=== PATIENT | female | born 1960 | race Caucasian/White ===

== ENCOUNTER → 2018-01-07 09:07 | Outpatient (CLI) | payer OTHER, SELFPAY ==
[2018-01-07 10:15] LABS: Anion Gap 5 (5-15); BUN 18 mg/dL (7-18); BUN/Creat Ratio 20.4 RATIO (10-20); Calcium,Total 8.9 mg/dL (8.5-10.1); Chloride 105 mmol/L (98-107); Cholesterol 166 mg/dL (200); Creatinine, Serum 0.88 mg/dL (0.55-1.02); EST Glomerular Filtration Rate 70 mL/min (>60); Est Glom Filt Rate - Afr Amer 84 mL/min (>60); Glucose 83 mg/dL (74-106); High Density Lipoprotein 104 mg/dL; Potassium 4.1 mmol/L (3.5-5.1); Sodium Level 139 mmol/L (136-145); Triglycerides 53 mg/dL; Very Low Density Lipoprotein 11 mg/dL (5-40)
== END ==
PROVIDERS: Family Provider Family Medicine; PCP Family Medicine; Visit Provider Nurse Practitioner Adult Health
DX: Z13.220 Encounter for screening for lipoid disorders (principal); Z13.1 Encounter for screening for diabetes mellitus
CPT/HCPCS: 36415; 80048; 80061

== ENCOUNTER → 2019-01-19 08:08 | Outpatient (CLI) | payer OTHER, SELFPAY ==
[2019-01-19 10:38] LABS: Anion Gap 6 (5-15); BUN 15 mg/dL (7-18); BUN/Creat Ratio 17.5 RATIO (10-20); Calcium,Total 9.1 mg/dL (8.5-10.1); Chloride 105 mmol/L (98-107); Cholesterol 172 mg/dL (200); Creatinine, Serum 0.86 mg/dL (0.55-1.02); EST Glomerular Filtration Rate 72 mL/min (>60); Est Glom Filt Rate - Afr Amer 87 mL/min (>60); Glucose 85 mg/dL (74-106); High Density Lipoprotein 95 mg/dL; Potassium 4.3 mmol/L (3.5-5.1); Sodium Level 141 mmol/L (136-145); Triglycerides 42 mg/dL; Very Low Density Lipoprotein 8 mg/dL (5-40)
== END ==
PROVIDERS: Family Provider Family Medicine; PCP Family Medicine; Visit Provider Nurse Practitioner Adult Health
DX: Z13.220 Encounter for screening for lipoid disorders (principal); Z13.1 Encounter for screening for diabetes mellitus
CPT/HCPCS: 36415; 80048; 80061

== ENCOUNTER → 2020-01-25 09:44 | Outpatient (CLI) | payer OTHER, SELFPAY ==
[2020-01-25 13:32] LABS: Cholesterol 172 mg/dL (200); Glucose 84 mg/dL (74-106); High Density Lipoprotein 96 mg/dL; Triglycerides 61 mg/dL; Very Low Density Lipoprotein 12 mg/dL (5-40)
== END ==
PROVIDERS: PCP Family Medicine; Visit Provider Nurse Practitioner Adult Health
DX: Z13.220 Encounter for screening for lipoid disorders (principal)
CPT/HCPCS: 36415; 80061; 82947

== ENCOUNTER 2020-04-05 08:31 | Outpatient (RCR) | payer OTHER, SELFPAY | END 2020-04-11 23:59 | LOC: NS 08:31 | PROVIDERS: PCP Family Medicine; Visit Provider Family Medicine | DX: Z71.3 Dietary counseling and surveillance (principal) | CPT/HCPCS: 97802 ==

== ENCOUNTER 2020-04-26 09:52 | Outpatient (RCR) | payer OTHER, SELFPAY | END 2020-04-26 23:59 | disposition home or self-care (01) | LOC: NS 09:52 | PROVIDERS: PCP Family Medicine; Visit Provider Family Medicine | DX: Z71.3 Dietary counseling and surveillance (principal); E55.9 Vitamin D deficiency, unspecified | CPT/HCPCS: 97803 ==

== ENCOUNTER → 2021-02-11 08:55 | Outpatient (CLI) | payer OTHER, SELFPAY ==
[2021-02-11 10:12] LABS: Hematocrit 46.7 % (37-47); Hemoglobin 15.2 g/dL (12.0-15.0); Mean Corp Hgb Conc 32.5 g/dL (32-36); Mean Corpuscular Hgb 30.8 pg (27.0-32.0); Mean Corpuscular Volume 94.7 fL (81-99); Mean Platelet Vol. 9.4 fl (6.2-12.0); Platelet Count 272 K/mm3 (150-450); RBC Distribution Width CV 11.9 % (11.6-14.6); RBC Distribution Width SD 41.6 fl (35.1-43.9); Red Blood Count 4.93 M/mm3 (4.2-5.4)
[2021-02-11 10:43] LABS: Anion Gap 5 (5-15); BUN 9 mg/dL (7-18); BUN/Creat Ratio 11.1 RATIO (10-20); Calcium,Total 9.2 mg/dL (8.5-10.1); Chloride 103 mmol/L (98-107); Cholesterol 198 mg/dL (200); Creatinine, Serum 0.81 mg/dL (0.55-1.02); EST Glomerular Filtration Rate 76 mL/min (>60); Est Glom Filt Rate - Afr Amer 92 mL/min (>60); Glucose 90 mg/dL (74-106); High Density Lipoprotein 114 mg/dL; Potassium 3.9 mmol/L (3.5-5.1); Sodium Level 139 mmol/L (136-145); Triglycerides 63 mg/dL; Very Low Density Lipoprotein 13 mg/dL (5-40)
== END ==
PROVIDERS: PCP Family Medicine; Referring Provider Nurse Practitioner Family; Visit Provider Nurse Practitioner Family
DX: Z13.1 Encounter for screening for diabetes mellitus (principal); Z13.220 Encounter for screening for lipoid disorders
CPT/HCPCS: 36415; 80048; 80061; 85027

== ENCOUNTER → 2022-02-20 | Outpatient (CLI) | payer OTHER, SELFPAY ==
[2022-02-20 12:17] LABS: Anion Gap 6 (5-15); BUN 12 mg/dL (7-18); BUN/Creat Ratio 15.4 RATIO (10-20); Calcium,Total 9.2 mg/dL (8.5-10.1); Chloride 104 mmol/L (98-107); Cholesterol 191 mg/dL (200); Creatinine, Serum 0.78 mg/dL (0.55-1.02); EST Glomerular Filtration Rate 79 mL/min (>60); Est Glom Filt Rate - Afr Amer 96 mL/min (>60); Glucose 95 mg/dL (74-106); High Density Lipoprotein 105 mg/dL; Sodium Level 138 mmol/L (136-145); Triglycerides 69 mg/dL; Very Low Density Lipoprotein 14 mg/dL (5-40)
== END | disposition home or self-care (01) ==
LOC: MTLAB 09:33
PROVIDERS: PCP Family Medicine; Referring Provider Nurse Practitioner Family; Visit Provider Nurse Practitioner Family
DX: Z13.1 Encounter for screening for diabetes mellitus (principal); Z13.220 Encounter for screening for lipoid disorders
CPT/HCPCS: 36415; 80048; 80061

== ENCOUNTER → 2023-01-08 | Outpatient (CLI) | payer OTHER, SELFPAY ==
[2023-01-08 10:32] LABS: Hematocrit 44.1 % (37-47); Hemoglobin 14.4 g/dL (12.0-15.0); Mean Corp Hgb Conc 32.7 g/dL (32-36); Mean Corpuscular Hgb 31.1 pg (27.0-32.0); Mean Corpuscular Volume 95.2 fL (81-99); Mean Platelet Vol. 9.5 fl (6.2-12.0); Platelet Count 281 K/mm3 (150-450); RBC Distribution Width CV 11.9 % (11.6-14.6); RBC Distribution Width SD 41.1 fl (35.1-43.9); Red Blood Count 4.63 M/mm3 (4.2-5.4); White Blood Count 5.2 K/mm3 (4.4-11.0)
[2023-01-08 11:10] LABS: Anion Gap 5 (5-15); BUN 14 mg/dL (7-18); BUN/Creat Ratio 17.9 RATIO (10-20); Calcium,Total 9.1 mg/dL (8.5-10.1); Chloride 105 mmol/L (98-107); Cholesterol 180 mg/dL (200); Creatinine, Serum 0.78 mg/dL (0.55-1.02); EST Glomerular Filtration Rate 79 mL/min (>60); Est Glom Filt Rate - Afr Amer 95 mL/min (>60); Glucose 85 mg/dL (74-106); High Density Lipoprotein 108 mg/dL; Potassium 4.1 mmol/L (3.5-5.1); Sodium Level 139 mmol/L (136-145); Thyroid Stim Hormone (TSH) 1.49 uIU/mL (0.358-3.74); Triglycerides 36 mg/dL; Very Low Density Lipoprotein 7 mg/dL (5-40)
== END | disposition home or self-care (01) ==
LOC: MFPLAB 09:15
PROVIDERS: PCP Family Medicine; Visit Provider Nurse Practitioner Family
DX: Z13.1 Encounter for screening for diabetes mellitus (principal); R53.83 Other fatigue; Z13.220 Encounter for screening for lipoid disorders
CPT/HCPCS: 36415; 80048; 80061; 84443; 85027

== ENCOUNTER → 2023-04-21 | Outpatient (CLI) | payer OTHER, SELFPAY | END | disposition home or self-care (01) | LOC: LABSPEC 11:33 | PROVIDERS: PCP Family Medicine; Visit Provider Family Medicine | DX: R31.9 Hematuria, unspecified (principal) | CPT/HCPCS: 87086; 87088; 87186 ==

== ENCOUNTER → 2023-08-31 | Outpatient (CLI) | payer OTHER, SELFPAY ==
--- NOTE | 2023-08-31 11:50 | RAD_ITS ---
EXAM: XR RIGHT HAND COMPLETE, 3 OR MORE VIEWS CLINICAL INDICATION: pain. 3rd mcp TECHNIQUE: Frontal, lateral and oblique views of the right hand. COMPARISON: No relevant prior studies available. FINDINGS: BONES/JOINTS: Unremarkable. No acute fracture. No subluxation. Normal alignment. Preservation of the joint space. No sclerotic or destructive changes observed. SOFT TISSUES: Unremarkable. No soft tissue swelling or gas. No radiopaque foreign body. RAD/Hand Min 3 Views IMPRESSION: Negative right hand x-rays. Electronically Signed: Fly Contreras MD at 13:29 EST ,
--- OUTSIDE RECORDS SUMMARY | 2023-08-31 12:10 | XMS RPT_ITS | CCD ---
Author Name Unknown Address [address] [place] [address] Organization [facility] Care Team Providers Care Photonics Engineering Technologist Name Role Phone Ajith Chung MD Primary Care Provider LAITH MCCLOUD Referring Unavailable AJITH CHUNG Primary Care LAITH Hernandez Attending Unavailable AJITH CHUNG Primary Care Ajith Borges MD Primary Care Provider Allergies Allergy Classification Reported Allergen(s) Allergy Type Date of Onset Reaction(s) Facility (7 sources) Azithromycin; Translations: [AZITHROMYCIN] Drug Allergy 10-08-2006 Diarrhea [facility] (7 sources) Cephalexin; Translations: [CEPHALEXIN] Drug Allergy 10-08-2006 GI Upset [facility] Medications Completed/Discontinued Medications Medication Drug Class(es) Dates Sig (Normalized) Sig (Original) 84 hr estradiol 0.41732 mg/hr transdermal system (8 sources) Estrogen Start: 12-03-2022 End: 03-03-2023 apply 1 dose transdermal route every hour estradiol 0.025 mg/24 hr APPLY 1 PATCH EVERY THURSDAY AND THURSDAY DIRECTED 24 Patch 3 03/03/2023 Active Problems Problem Classification Problem Date Documented Date Episodic/Chronic Genitourinary symptoms and ill-defined conditions (6 sources) Urge incontinence of urine; Translations: [Urge incontinence] Onset: 12-16-2011 12-16-2011 Chronic Genitourinary symptoms and ill-defined conditions (3 sources) Blood in urine; Translations: [Hematuria, unspecified] 04-21-2023 Episodic Other hereditary and degenerative nervous system conditions (6 sources) System disorder of the nervous system; 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] 01-07-2006 Chronic Other screening for suspected conditions (not mental disorders or infectious disease) (4 sources) Patient encounter status; Translations: [Encounter for screening mammogram for malignant neoplasm of breast] Onset: 04-03-2023 Episodic Spondylosis; intervertebral disc disorders; other back problems (6 sources) Degeneration of cervical intervertebral disc; Translations: [Other cervical disc degeneration, unspecified cervical region] Onset: 12-07-2007 12-07-2007 Chronic Thyroid disorders (6 sources) Goiter; Translations: [Nontoxic goiter, unspecified] 04-18-2008 Chronic Results Test Name Value Interpretation Reference Range Facil ity Vital Signs Date Time Vital Sign Value Performing Clinician Faci lity 03-03-2023 08:46-0400 Body height 160 cm Laith Mccloud MD Work Phone: [facility] 03-03-2023 08:46-0400 Body weight 57.15 kg Laith Mccloud MD Work Phone: [facility] 03-03-2023 08:46-0400 Diastolic blood pressure 70 mm[Hg] Laith Mccloud MD Work Phone: [facility] 03-03-2023 08:46-0400 Systolic blood pressure 116 mm[Hg] Laith Mccloud MD Work Phone: [facility] 02-07-2022 09:00-0400 Body height 160 cm Laith Mccloud MD Work Phone: [facility] 02-07-2022 09:00-0400 Body weight 57.15 kg Laith Mccloud MD Work Phone: [facility] 02-07-2022 09:00-0400 Diastolic blood pressure 76 mm[Hg] Laith Mccloud MD Work Phone: [facility] 02-07-2022 09:00-0400 Systolic blood pressure 118 mm[Hg] Laith Mccloud MD Work Phone: [facility] Encounters Encounter Date Encounter Type Care Provider Facility Start: 04-21-2023 Telephone encounter Laith Mccloud MD Work Phone: OB/Gynecology Procedures Date Procedure Procedure Detail Performing Clinician Start: 04-03-2023 Screening digital br [facility] tomos[facility] bi Laith Mccloud MD Work Phone: Start: 02-06-2021 Mammography Laith ladd MD Work Phone: Start: 03-26-2015 Lipid 1996 panel - S lui or Plasma Laith Mccloud MD Work Phone: Start: 09-25-2011 Colonoscopy Laith ladd MD Work Phone: Plan of Treatment Date Care Activity Detail Author Start: 01-08-2033 Urine microalbumin profile DTaP,Tdap,Td Vaccine (3 - Td or Tdap) [facility] Start: 04-03-2024 Mammography Mammogram Screening [facility] Start: 03-13-2023 Covid-19 Vaccine () Covid-19 Vaccine () [facility] Start: 03-13-2023 Influenza vaccination [facility] Start: 01-18-2023 Urine microalbumin profile [facility] Start: 07-13-2022 DEPRESSION ASSESSMENT DEPRESSION ASSESSMENT [facility] Start: 03-20-2022 COVID-19 VACCINE (5 - Moderna series) COVID-19 VACCINE (5 - Moderna series) [facility] Start: 03-13-2022 Influenza vaccination [facility] Start: 02-06-2022 Mammography MAMMOGRAM [facility] Start: 09-24-2021 Colonoscopy COLONOSCOPY [facility] Start: 09-24-2021 COLORECTAL CANCER SCREENING COLORECTAL CANCER SCREENING [facility] Start: 03-19-2021 COVID-19 VACCINE (3 - Booster for Moderna series) COVID-19 VACCINE (3 - Booster for Moderna series) [facility] Start: 03-26-2020 Lipid 1996 panel - Serum or Plasma Lipid Screening [facility] Start: 03-26-2020 LIPID SCREEN LIPID SCREEN [facility] Start: 2019 RSV Vaccine (1 - 1-dose 60+ series) RSV Vaccine (1 - 1-dose 60+ series) [facility] Start: 03-26-2018 DIABETES SCREEN DIABETES SCREEN [facility] Start: 03-26-2018 Diabetes Screening Diabetes Screening [facility] Start: 01-31-2004 COLOGUARD (FIT-DNA) COLOGUARD (FIT-DNA) [facility] Start: 01-31-[address] COLONOGRAPHY [facility] Start: 01-31-2004 FECAL OCCULT BLOOD FECAL OCCULT BLOOD [facility] Start: 01-31-2004 SIGMOIDOSCOPY SIGMOIDOSCOPY [facility] Start: 1977 HEPATITIS C SCREENING HEPATITIS C SCREENING [facility] Start: 1977 HIV SCREENING HIV SCREENING [facility] Start: 1971 Adult depression screening assessment DEPRESSION SCREENING [facility] End: 03-09-2023 SEBAS SCREENING W [facility]URICE SEBAS SCREENING W [facility] Radiology Routine Encounter for gynecological examination (general) (routine) without abnormal findings Encounter for screening mammogram for breast cancer 1 Occurrences starting 02/07/2022 until 03/09/2023 [facility] Work Phone: Immunizations Immunization Date Immunization Notes Care Provider Fa cility 05-15-2019 zoster vaccine recombinant Laith Mccloud MD Work Phone: [facility] Work Phone: 01-23-2019 zoster vaccine recombinant Laith Mccloud MD Work Phone: [facility] Work Phone: 07-15-2016 influenza virus vaccine, unspecified formulation Laith Mccloud MD Work Phone: [facility] 04-27-2016 zoster vaccine, live Laith Mccloud MD Work Phone: [facility] Work Phone: 01-18-2013 tetanus toxoid, redu cheng diphtheria toxoid, and acellular pertussis vaccine, adsorbed Laith Mccloud MD Work Phone: [facility] Work Phone: Payers Date Payer Category Payer Unknown [facility] PPO [employer] [id number] 2015-Present [phone] [address] [place] [address] PPO [id number] 2015 Unknown [facility] PPO [employer] [id number] 2015-Present [phone] [address] [place] [address] PPO [id number] 2015 Unknown [id number] Social History Date Type Detail Facility Start: 12-28-2012 End: 03-03-2023 Tobacco smoking status NHIS Never smoked tobacco [facility] Start: 02-06-2021 End: 03-03-2023 Alcohol intake Current drinker of alcohol (finding) [facility] Start: 07-15-2016 History SDOH Alcohol Comment occasional [facility] Start: 1960 Sex Assigned At Not on file C [facility] Start: 01-28-2022 End: 02-07-2022 Exposure to SARS-CoV-2 (event) Not sure [facility] Start: 12-28-2012 End: 03-03-2023 Tobacco use and exposure Smokeless tobacco non-user [facility] Start: 03-03-2023 End: 04-03-2023 History of Social function [facility] Start: 03-03-2023 End: 04-03-2023 Tobacco use panel [facility] National Score (1-10 0), lower number is lower risk 66 [facility] Clinical Notes 10-14-2012 to 04-21-2023 Addendum Note - Emma Ferrara RN - 04/21/2023 9:58 AM EDTTelephone Encounter - Emma Ferrara RN - 04/21/2023 9:57 AM EDTTelephone Encounter - Carla Garcia RN - 04/21/2023 8:04 AM EDT Note Date & Type Note Facility 04-21-2023 Miscellaneous Notes Addended by: EMMA FERRARA RN on: 04/21/2023 09:58 AM Modules accepted: Orders Patient called back. Declines wanting to leave a urine sample at the lab since she is not able to see RR today. Plans to go to her other doctor. Emma Ferrara RN Patient calling c/o UTI symptoms. Having dysuria, urinary frequency, hematuria. She does not want to go to urgent care unless RR feels she needs to. Order pending if appropriate. Patient is extremely uncomfortable though. Last annual with RR 03/03/23. Please advise. Carla Garcia RN documented in this encounter [facility] 04-03-2023 Note HNO ID: [id number] Author: Alexandro Vargas Mammo Tech Service: ? Author Type: Technologist Type: Progress Notes Filed: 04/03/2023 7:19 AM Note Text: Radiology Service Progress Note PATIENT NAME: Navya Zambrano DATE OF SERVICE: April 03, 2023 TIME: 6:58 AM PATIENT IDENTITY VERIFICATION COMPLETED USING TWO (2) IDENTIFIERS: Name and Date of confirmed by patient verbally. FALL SCREENING: Has the patient had 2 falls in the last year or 1 fall with injury or currently using an Ambulatory Assistive Device (Walker, Cane, Wheelchair, Crutches, etc.)? No PATIENT GENDER DATA: Female. status: : No status: NO. PATIENT RELEVANT IMPLANT DATA REVIEWED: Not Applicable RADIOLOGY DEPARTMENT: Mammography PERIPHERAL IV DATA: Not applicable SIGNED BY: Selin Neal April 03, 2023 6:58 AM [facility] 04-03-2023 History of Presen t illness Narrative Radiology Service Progress Note PATIENT NAME: Navya Zambrano DATE OF SERVICE: April 03, 2023 TIME: 6:58 AM PATIENT IDENTITY VERIFICATION COMPLETED USING TWO (2) IDENTIFIERS: Name and Date of confirmed by patient verbally. FALL SCREENING: Has the patient had 2 falls in the last year or 1 fall with injury or currently using an Ambulatory Assistive Device (Walker, Cane, Wheelchair, Crutches, etc.)? No PATIENT GENDER DATA: Female. status: : No status: NO. PATIENT RELEVANT IMPLANT DATA REVIEWED: Not Applicable RADIOLOGY DEPARTMENT: Mammography PERIPHERAL IV DATA: Not applicable SIGNED BY: Selin Neal April 03, 2023 6:58 AM documented in this encounter [facility] 03-03-2023 Note HNO ID: [id number] Author: Laith Mccloud MD Service: ? Author Type: Physician Type: Progress Notes Filed: 03/03/2023 9:02 AM Note Text: Navya is a 63 year old who presents for an annual gynecologic exam without complaints. Other than fatigue a/p hyst many years ago Postmenopausal: yes HRT use: yes, doing well w/ it. 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 No bloating, early satiety, indigestion, or increased flatulence. Bladder: No dysuria, gross hematuria, urinary frequency, urinary urgency, or incontinence Breast: No breast lumps, nipple d/c, overlying skin changes, redness or skin retraction Allergies and current medication updated:Yes EXAM: BP 116/70 Ht 5' 3 (1.60m) Wt 126 lb (57.2kg) BMI 22.33 kg/(m2). GENERAL: pleasant, female in no apparent distress HEENT: Normocephalic, atraumatic, mucus membranes moist, and no lesions NECK: Supple, full range of motion, no adenopathy, and thyroid normal DERMATOLOGY: Normal, without lesions, non-icteric, and non-hirsute BREAST: soft, non-tender, symmetric, no dominant mass, normal nipple-areolar complex, no lymphadenopathy, and no nipple discharge CHEST: Normal inspiratory effort ABDOMEN: soft, non-tender, and no masses PELVIC: external genitalia normal, normal Bartholin's glands, urethra, [place]'s glands, no vulvar lesions, good vaginal support, physiologic discharge present, normal appearing perineal body and perianal region, cervix surgically absent BIMANUAL: no adnexal masses, non-tender, and uterus surgically absent RECTOVAGINAL: deferred. NEURO: alert and oriented x3,exam grossly non-focal EXTREMITIES: normal ASSESSMENT/PLAN: 1) Health maintenance: Pap/HPV screening no longer needed Mammogram ordered Colon cancer screening: up to date with screening 2) Follow up one year or sooner as needed Laith Mccloud MD [facility] 03-03-2023 History of Presen t illness Narrative Navya is a 63 year old who presents for an annual gynecologic exam without complaints. Other than fatigue a/p hyst many years ago Postmenopausal: yes HRT use: yes, doing well w/ it. 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 No bloating, early satiety, indigestion, or increased flatulence. Bladder: No dysuria, gross hematuria, urinary frequency, urinary urgency, or incontinence Breast: No breast lumps, nipple d/c, overlying skin changes, redness or skin retraction Allergies and current medication updated:Yes EXAM: BP 116/70 Ht 5' 3 (1.60m) Wt 126 lb (57.2kg) BMI 22.33 kg/(m^2). GENERAL: pleasant, female in no apparent distress HEENT: Normocephalic, atraumatic, mucus membranes moist, and no lesions NECK: Supple, full range of motion, no adenopathy, and thyroid normal DERMATOLOGY: Normal, without lesions, non-icteric, and non-hirsute BREAST: soft, non-tender, symmetric, no dominant mass, normal nipple-areolar complex, no lymphadenopathy, and no nipple discharge CHEST: Normal inspiratory effort ABDOMEN: soft, non-tender, and no masses PELVIC: external genitalia normal, normal Bartholin's glands, urethra, [place]'s glands, no vulvar lesions, good vaginal support, physiologic discharge present, normal appearing perineal body and perianal region, cervix surgically absent BIMANUAL: no adnexal masses, non-tender, and uterus surgically absent RECTOVAGINAL: deferred. NEURO: alert and oriented x3,exam grossly non-focal EXTREMITIES: normal ASSESSMENT/PLAN: 1) Health maintenance: Pap/HPV screening no longer needed Mammogram ordered Colon cancer screening: up to date with screening 2) Follow up one year or sooner as needed Laith Mccloud MD documented in this encounter [facility] 02-07-2022 History of Presen t illness Narrative Navya is a 62 year old who presents for an annual gynecologic exam without complaints. Postmenopausal: yes HRT use: No. 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 No bloating, early satiety, indigestion, or increased flatulence. Bladder: No dysuria, gross hematuria, urinary frequency, urinary urgency, or incontinence Breast: No breast lumps, nipple d/c, overlying skin changes, redness or skin retraction Allergies and current medication updated:Yes EXAM: BP 118/76 Ht 5' 3 (1.60m) Wt 126 lb (57.2kg) BMI 22.33 kg/(m^2). GENERAL: pleasant, female in no apparent distress HEENT: Normocephalic, atraumatic, mucus membranes moist and no lesions NECK: Supple, full range of motion, no adenopathy and thyroid normal DERMATOLOGY: Normal, without lesions, non-icteric and non-hirsute BREAST: soft, non-tender, symmetric, no dominant mass, normal nipple-areolar complex, no lymphadenopathy and no nipple discharge CHEST: Normal inspiratory effort ABDOMEN: soft, non-tender and no masses PELVIC: external genitalia normal, normal Bartholin's glands, urethra, [place]'s glands, no vulvar lesions, good vaginal support, physiologic discharge present, normal appearing perineal body and perianal region, cervix surgically absent BIMANUAL: uterus normal size, shape and consistency, no adnexal masses and non-tender RECTOVAGINAL: deferred. NEURO: alert and oriented x3,exam grossly non-focal EXTREMITIES: normal ASSESSMENT/PLAN: 1) Health maintenance: Pap/HPV screening no longer needed Mammogram ordered Colon cancer screening: up to date with screening 2) Follow up one year or sooner as needed Laith Mccloud MD documented in this encounter [facility] 12-31-2021 Miscellaneous Notes See pharmacy generated refill request. Pt has upcoming yearly scheduled. Eva Howell LPN documented in this encounter [facility] documented as of this encounter (statuses as of 12/31/2021) [facility] History of Past illness Narrative* Problem Noted Date Resolved Date Symptomatic menopausal or female climacteric sta mesfin 10/14/2012 07/15/2016 Routine General Medical Exam ination at a Health Care Facility 04/18/2008 09/27/2014 Overview: Vitamin D 52 in 04-19: on supplements for FH of osteoporosis Father had CABG in his 60s (former smoker) Pt e-mail about considering a stress test in 08-21 after seeing TIRE DESIGN ENGINEER for eval of menopause ED 11-18 for injury to R 3rd digit: no fracture [facility] ([place] in 11-18: PIP flexion-DIP extension splinting Sleep disturbance, unspecified 04/14/2008 0 07/15/2016 Overview: Reviewed jaw line and symptoms in 04-19: pt willing to schedule Sleep study 04-23-08: effic 96%, REM latency 88 min, AHI 0.3, 1.7 in REM Overweight(278.02) 04/14/2008 12/16/2011 Dysuria 01/11/2008 07/15/2016 Pain in thoracic spine 12/07/2007 7 Overview: Changed work station in 12-18 with about 60% improvement documented as of this encounter (statuses as of 02/07/2022) [facility] History of Past illness Narrative* Problem Noted Date Resolved Date Symptomatic menopausal or female climacteric sta mesfin 10/14/2012 07/15/2016 Routine General Medical Exam ination at a Health Care Facility 04/18/2008 09/27/2014 Overview: Vitamin D 52 in 04-19: on supplements for FH of osteoporosis Father had CABG in his 60s (former smoker) Pt e-mail about considering a stress test in 08-21 after seeing TIRE DESIGN ENGINEER for eval of menopause ED 11-18 for injury to R 3rd digit: no fracture [facility] ([place] in 11-18: PIP flexion-DIP extension splinting Sleep disturbance, unspecified 04/14/2008 0 07/15/2016 Overview: Reviewed jaw line and symptoms in 04-19: pt willing to schedule Sleep study 04-23-08: effic 96%, REM latency 88 min, AHI 0.3, 1.7 in REM Overweight(278.02) 04/14/2008 12/16/2011 Dysuria 01/11/2008 07/15/2016 Pain in thoracic spine 12/07/2007 7 Overview: Changed work station in 12-18 with about 60% improvement documented as of this encounter (statuses as of 03/10/2022) [facility] History of Past illness Narrative* Problem Noted Date Diagnosed Date Resolved Date Symptomatic menopausal or fe male climacteric states 10/14/2012 07/15/2016 Routine General Medical Exam ination at a Health Care Facility 04/18/2008 09/27/2014 Overview: Vitamin D 52 in 04-19: on supplements for FH of osteoporosis Father had CABG in his 60s (former smoker) Pt e-mail about considering a stress test in 08-21 after seeing TIRE DESIGN ENGINEER for eval of menopause ED 11-18 for injury to R 3rd digit: no fracture [facility] ([facility]) in 11-18: PIP flexion-DIP extension splinting Sleep disturbance, unspecified 04/14/2008 07/15/2016 Overview: Reviewed jaw line and symptoms in 04-19: pt willing to schedule Sleep study 04-23-08: effic 96%, REM latency 88 min, AHI 0.3, 1.7 in REM Overweight(278.02) 04/14/2008 2 Dysuria 01/11/2008 07/15/2016 Pain in thoracic spine 12/07/200707/15 Overview: Changed work station in 12-18 with about 60% improvement documented as of this encounter (statuses as of 03/03/2023) [facility] History of Past illness Narrative* Problem Noted Date Diagnosed Date Resolved Date Symptomatic menopausal or fe male climacteric states 10/14/2012 07/15/2016 Routine General Medical Exam ination at a Health Care Facility 04/18/2008 09/27/2014 Overview: Vitamin D 52 in 04-19: on supplements for FH of osteoporosis Father had CABG in his 60s (former smoker) Pt e-mail about considering a stress test in 08-21 after seeing TIRE DESIGN ENGINEER for eval of menopause ED 11-18 for injury to R 3rd digit: no fracture [facility] ([place] in 11-18: PIP flexion-DIP extension splinting Sleep disturbance, unspecified 04/14/2008 07/15/2016 Overview: Reviewed jaw line and symptoms in 04-19: pt willing to schedule Sleep study 04-23-08: effic 96%, REM latency 88 min, AHI 0.3, 1.7 in REM Overweight(278.02) 04/14/2008 2 Dysuria 01/11/2008 07/15/2016 Pain in thoracic spine 12/07/200707/15 Overview: Changed work station in 12-18 with about 60% improvement documented as of this encounter (statuses as of 04/21/2023) [facility]04[facility] History of Past illness Narrative* Problem Noted Date Diagnosed Date Resolved Date Symptomatic menopausal or fe male climacteric states 10/14/2012 07/15/2016 Routine General Medical Exam ination at a Health Care Facility 04/18/2008 09/27/2014 Overview: Vitamin D 52 in 04-19: on supplements for FH of osteoporosis Father had CABG in his 60s (former smoker) Pt e-mail about considering a stress test in 08-21 after seeing TIRE DESIGN ENGINEER for eval of menopause ED 11-18 for injury to R 3rd digit: no fracture [facility] in 11-18: PIP flexion-DIP extension splinting Sleep disturbance, unspecified 04/14/2008 07/15/2016 Overview: Reviewed jaw line and symptoms in 04-19: pt willing to schedule Sleep study 04-23-08: effic 96%, REM latency 88 min, AHI 0.3, 1.7 in REM Overweight(278.02) 04/14/2008 2 Dysuria 01/11/2008 07/15/2016 Pain in thoracic spine 12/07/200707/15 Overview: Changed work station in 12-18 with about 60% improvement documented as of this encounter (statuses as of 05/17/2023) [facility] Diagnosis Encounter for gynecological examination (general) (routine) without abnormal findings Encounter for screening mammogram for breast cancer documented in this encounter [facility] note* Diagnosis Encounter for gynecological examination (general) (routine) without abnormal findings- Primary Encounter for screening mammogram for breast cancer documented in this encounter [facility] note* Diagnosis Hematuria, unspecified type- Primary Urinary frequency Dysuria documented in this encounter [facility] note* Diagnosis Encounter for gynecological examination (general) (routine) without abnormal findings Encounter for screening mammogram for breast cancer [facility] Diagnostic Procedure Only (Routine) - Pending Review Specialty Diagnoses / Procedures Referred By Maria Fernanda brown Referred To Contact [facility] Diagnoses Encounter for gynecological examination (general) (routine) without abnormal findings Encounter for screening mammogram for breast cancer Procedures SEBAS SCREENING W MAURICE SCREENING DIGITAL BREAST TOMOSYNTHESIS BI SCREENING MAMMOGRAPHY BI 2-VIEW BREAST INC CAD Laith Mccolud MD [address] [place] [address] [facility] [address] [place] [phone] Referral ID Status Reason Start Date Expiration Date Visits Requested Visits Authorized [id number] Pending Review Auto-Generat ed Referral 02/07/2022 03/09/2023 1 1 [facility] (n[facility]ative)* Diagnostic Procedure Only (Routine) - Pending Review Specialty Diagnoses / Procedures Referred By Maria Fernanda brown Referred To Contact [facility] Diagnoses Encounter for gynecological examination (general) (routine) without abnormal findings Encounter for screening mammogram for breast cancer Procedures SEBAS SCREENING W MAURICE SCREENING DIGITAL BREAST TOMOSYNTHESIS BI SCREENING MAMMOGRAPHY BI 2-VIEW BREAST INC Laith Sneed MD [address] [place] [address] [facility] [address] [place] [address] Referral ID Status Reason Start Date Expiration Date Visits Requested Visits Authorized [id number] Pending Review Auto-Generat ed Referral 03/03/2023 04/01/2024 1 1 T [facility] for referral (narrative)* Diagnostic Procedure Only (Routine) - Closed Specialty Diagnoses / Procedures Referred By Maria Fernanda t Referred To Contact [facility] Diagnoses Encounter for gynecological examination (general) (routine) without abnormal findings Encounter for screening mammogram for breast cancer Procedures SEBAS SCREENING W MAURICE SCREENING DIGITAL BREAST TOMOSYNTHESIS BI SCREENING MAMMOGRAPHY BI 2-VIEW BREAST INC Laith Sneed MD [address] [place] [address] [facility] [address] [place] [address] Referral ID Status Reason Start Date Expiration Date V isits Requested Visits Authorized [id number] Closed Auto-Generate d Referral 03/03/2023 04/01/2024 1 1 [facility] for visit Narrative* Diagnostic Procedure Only (Routine) - Closed Specialty Diagnoses / Procedures Referred By Contkuldip brown Referred To Contact [facility] Diagnoses Encounter for gynecological examination (general) (routine) without abnormal findings Encounter for screening mammogram for breast cancer Procedures SEBAS SCREENING W MAURICE SCREENING DIGITAL BREAST TOMOSYNTHESIS BI SCREENING MAMMOGRAPHY BI 2-VIEW BREAST INC Laith Sneed MD [address] [place] [address] [facility] [address] [place] [address] Referral ID Status Reason Start Date Expiration Date V isits Requested Visits Authorized [id number] Closed Auto-Generate d Referral 03/03/2023 04/01/2024 1 1 [facility] Summary Purpose Family History No Family History Records Found Advance Directives No Advanced Directives Records Found Additional Source Comments Source Comments (unrecognize d section and content) In the event this informatio n is protected by the Federal Confidentiality of Alcohol and Drug Abuse Patient Records regulations: The Federal rules restrict any use of the information to criminally investigate or prosecute any alcohol or drug abuse patient.[facility] the event this information is protected by the Federal Confidentiality of Alcohol and Drug Abuse Patient Records regulations: The Federal rules restrict any use of the information to criminally investigate or prosecute any alcohol or drug abuse patient.[facility] the event this information is protected by the Federal Confidentiality of Alcohol and Drug Abuse Patient Records regulations: The Federal rules restrict any use of the information to criminally investigate or prosecute any alcohol or drug abuse patient.[facility] Center[facility] the event this information is protected by the Federal Confidentiality of Alcohol and Drug Abuse Patient Records regulations: The Federal rules restrict any use of the information to criminally investigate or prosecute any alcohol or drug abuse patient.[facility] Center[facility] the event this information is protected by the Federal Confidentiality of Alcohol and Drug Abuse Patient Records regulations: The Federal rules restrict any use of the information to criminally investigate or prosecute any alcohol or drug abuse patient.[facility] Center[facility] the event this information is protected by the Federal Confidentiality of Alcohol and Drug Abuse Patient Records regulations: The Federal rules restrict any use of the information to criminally investigate or prosecute any alcohol or drug abuse patient.[facility] Reason for Visit (unrecogniz ed section and content) Reason Comments Yearly Exam Reason Comments UTI Care Teams (unrecognized sec tion and content) Photonics Engineering Technologist Relationship Specialty Start Date End Date Ajith Chung MD [address] [place], [place] [id number] PCP - General Family Practice 09/27/14 Photonics Engineering Technologist Relationship Specialty Start Date End Date Ajith Chung MD [address] [facility] [address] [address] [place], [place] [id number] PCP - General Family Practice 09/27/14 Photonics Engineering Technologist Relationship Specialty Start Date End Date Ajith Chung MD [address] [place], [place] [phone] PCP - General Family Medicine 09/27/14 Photonics Engineering Technologist Relationship Specialty Start Date End Date Ajith Chung MD [address] [place] [id number] PCP - General Family Medicine 09/27/14 Photonics Engineering Technologist Relationship Specialty Start Date End Date Ajith Chung MD [address] [place], [place] [phone] PCP - General Family Medicine 09/27/14 INFORMATION SOURCE (unrecogn ized section and content) FOR RECORDS PERTAINING TO PATIENTS WHO ARE OR HAVE BEEN ENROLLED IN A CHEMICAL DEPENDENCY/SUBSTANCEABUSE PROGRAM, SOME INFORMATION MAY BE OMITTED. This clinical summary was aggregated from multiple sources. Caution should be exercised in using it in the provision of clinical care. This summary normalizes information from multiple sources, and as a consequence, information in this document may materially change the coding, format and clinical context of patient data. In addition, data may be omitted in some cases. CLINICAL DECISIONS SHOULD BE BASED ON THE PRIMARY CLINICAL RECORDS. [employer] provides no warranty or guarantee of the accuracy or completeness of information in this document.
== END | disposition home or self-care (01) ==
PROVIDERS: PCP Family Medicine; Referring Provider Family Medicine; Visit Provider Family Medicine
DX: M79.641 Pain in right hand (principal)
CPT/HCPCS: 73130

== ENCOUNTER → 2024-01-26 | Outpatient (CLI) | payer OTHER, SELFPAY ==
[2024-01-26 13:31] LABS: Anion Gap 7 (5-15); BUN 14 mg/dL (7-18); BUN/Creat Ratio 19.5 RATIO (10-20); Calcium,Total 9.2 mg/dL (8.5-10.1); Chloride 106 mmol/L (98-107); Cholesterol 171 mg/dL (200); Creatinine, Serum 0.72 mg/dL (0.55-1.02); EST Glomerular Filtration Rate 87 mL/min (>60); Est Glom Filt Rate - Afr Amer 105 mL/min (>60); Glucose 91 mg/dL (74-106); High Density Lipoprotein 98 mg/dL; Potassium 4.6 mmol/L (3.5-5.1); Sodium Level 136 mmol/L (136-145); Triglycerides 61 mg/dL; Very Low Density Lipoprotein 12 mg/dL (5-40)
== END | disposition home or self-care (01) ==
LOC: MFPLAB 11:06
PROVIDERS: PCP Family Medicine; Visit Provider Nurse Practitioner Family
DX: Z13.220 Encounter for screening for lipoid disorders (principal); Z13.1 Encounter for screening for diabetes mellitus
CPT/HCPCS: 36415; 80048; 80061

== ENCOUNTER → 2024-04-23 | Outpatient (CLI) | payer OTHER, SELFPAY ==
[2024-04-23 14:30] LABS: Bacteria 0 SEEN /hpf (None Seen); Mucous, Urine 0 SEEN /hpf (<or=2+); Squamous Epithelial Cells - UA 0 SEEN /hpf (5-10)
[2024-04-23 14:42] LABS: Color, Urine Red (Yellow); Glucose, Dipstick Normal (Normal); Ketone-Dipstick 5 mg/dl (Negative); Leukocyte Esterase-Dipstick Negative /ul (Negative); Nitrite-Dipstick Negative (Negative); Occult Blood-Urine 150 /ul (Negative); Protein-Dipstick 500 mg/dl (Negative); Urine Bilirubin Dipstick Negative (Negative); Urine Clarity Turbid (Clear); Urine Urobilinogen Normal (Normal); Urine pH 6.5 (5.0 - 8.0)
[2024-04-23 14:52] LABS: Red Blood Cells-Urine > 100 SEEN /hpf (0-5); White Blood Cells >100 SEEN /hpf (0-5)
== END | disposition home or self-care (01) ==
LOC: LABSPEC 14:29
PROVIDERS: Physician Assistant; PCP Family Medicine
DX: R31.0 Gross hematuria (principal)
CPT/HCPCS: 81001; 87077; 87086; 87088; 87186

== ENCOUNTER → 2024-05-19 | Outpatient (CLI) | payer OTHER, SELFPAY | END | disposition home or self-care (01) | LOC: RAD 07:22 | PROVIDERS: PCP Family Medicine; Referring Provider Student in an Organized Health Care Education/Training Program; Visit Provider Student in an Organized Health Care Education/Training Program | DX: K59.00 Constipation, unspecified (principal) | CPT/HCPCS: 74018 ==

== ENCOUNTER → 2024-05-21 | Outpatient (CLI) | payer OTHER, SELFPAY | END | disposition home or self-care (01) | LOC: RAD 07:52 | PROVIDERS: PCP Family Medicine; Referring Provider Student in an Organized Health Care Education/Training Program; Visit Provider Student in an Organized Health Care Education/Training Program | DX: K59.00 Constipation, unspecified (principal) | CPT/HCPCS: 74018 ==

== ENCOUNTER → 2024-11-11 | Outpatient (CLI) | payer OTHER, SELFPAY ==
--- NOTE | 2024-11-11 10:39 | NM_ITS ---
PROCEDURE: GASTRIC EMPTYING STUDY 11/11/2024 REASON FOR EXAM: BLOATING COMPARISON: None. TECHNIQUE: The patient ingested a standard meal of cooked oatmeal was ingested. There was no vomiting postprandially. Imaging for a total of 1 hour was obtained. Regions of interest were drawn, and a geometric mean was used to calculate a [id number]. Medications taken in the past 24 hours that may affect gastric emptying: None RADIOPHARMACEUTICAL: 1.2 mCi technetium 99 M sulfur colloid in oatmeal, orally administered. FINDINGS: Linear fit half time of 52.2 minutes.. At the time of imaging, gastroesophageal reflux was not identified. Percent activity remaining in stomach: % gastric emptying at 12 minutes was 4%, 30 minutes 17%, 42 minutes 31%, 48 minutes 38%, at 60 minutes 56%. NM/Gastric Emptying Study IMPRESSION: Normal semi solid phase gastric emptying. Reading Location: [place] [id number]
== END | disposition home or self-care (01) ==
LOC: NM 10:38
PROVIDERS: PCP Family Medicine; Referring Provider Internal Medicine Gastroenterology; Visit Provider Internal Medicine Gastroenterology
DX: K59.00 Constipation, unspecified (principal)
CPT/HCPCS: 78264; A9541

== ENCOUNTER → 2024-11-23 | Outpatient (CLI) | payer OTHER, SELFPAY ==
--- NOTE | 2024-11-23 09:37 | US_ITS ---
PROCEDURE: EXT NON VASC LIMITED/SOFT TISS 11/23/2024 REASON FOR EXAM: MASS ON SHOULDER TECHNIQUE: Ultrasound targeted to the palpable abnormality at the left shoulder.. COMPARISON: None FINDINGS: The palpable lump corresponds to a 4.1 cm by 3.6 cm x 0.7 cm slightly echogenic nodular density suggestive of a lipoma. US/Ext Non Vasc Limited/Soft Tiss IMPRESSION: The palpable abnormality measuring 4.1 cm x 3.6 cm x 0.9 cm most likely represe nts a lipoma. Reading Location: [id number]
== END | disposition home or self-care (01) ==
LOC: US 09:35
PROVIDERS: PCP Family Medicine; Referring Provider Surgery Plastic and Reconstructive Surgery; Visit Provider Surgery Plastic and Reconstructive Surgery
DX: R22.32 Localized swelling, mass and lump, left upper limb (principal)
CPT/HCPCS: 76882

== ENCOUNTER 2024-12-14 11:30 | Day surgery (SDC) | payer OTHER, SELFPAY ==
[2024-12-14 11:50] VITALS: BP 138/91; PULSE 65; RESP 16; TEMP 36.3; O2SAT 100; BMI 22.3
[2024-12-14] MEDS: Lactated Ringers 1,000 ML 15 ML IV (12:00)
--- NOTE | 2024-12-14 12:27 | PCM.PRE.AN2 ---
ASA Classification* ASA Classification ASA Classification: 1 Assessment & Plan Anesthesia* Anesthesia Assessment Anesthesia Assessment: Discussed sedation and/or anesthesia options, risks, benefits, and alternatives with patient/parents/legal guardian/POA. Questions invited. The patient/parents/legal guardian/POA seems to understand and agrees to proceed with anesthesia plan. Reviewed the physical assessment, medical history, allergy history and patient home medications list prior to surgery/procedure/anesthetic and documented any changes. Performed airway and anesthesia risk assessments. Anesthesia Type Anesthesia Type: MAC History Source History Obtained from:: Patient and Chart Anesthesia Focused Assessment* Temperature: 97.4 F Pulse Rate: 65 Blood Pressure: 138/91 Respiratory Rate: 16 Pulse Ox: 100 Oxygen Delivery Method: Room Air Airway Assessment Mouth opens: >3 cm Mallampati Score: II Teeth Condition: Intact Neck Range of motion (ROM): Full ROM Focused Labs Anesthesia Preop lab: CBC WBC 5.2 K/mm3 (4.4-11.0) 01/08/23 09:15 01/08/23 RBC 4.63 M/mm3 (4.2-5.4) 01/08/23 09:15 01/08/23 Hgb 14.4 g/dL (12.0-15.0) 01/08/23 09:15 01/08/23 Hct 44.1 % (37-47) 01/08/23 09:15 01/08/23 Plt Count 281 K/mm3 (150-450) 01/08/23 09:15 01/08/23 CHEMISTRY Potassium 4.6 mmol/L (3.5-5.1) 01/26/24 11:07 01/26/24 Sodium 136 mmol/L (136-145) 01/26/24 11:07 01/26/24 BUN 14 mg/dL (7-18) 01/26/24 11:07 01/26/24 Creatinine 0.72 mg/dL (0.55-1.02) 01/26/24 11:07 01/26/24 Glucose 91 mg/dL (74-106) 01/26/24 11:07 01/26/24 TSH 1.49 uIU/mL (0.358-3.74) 01/08/23 09:15 01/08/23 COAG Pre-Assessment Diagnosis/Proposed Procedure Planned Operative Procedure(s): EXCISION LEFT SHOULDER MASS Anesthesia History Anesthesia History - direct mail coordinator: Anesthesia History - direct mail coordinator Hx Hospitalization No 12/01/24 11:38 Any Problems With Anesthesia No 12/01/24 11:38 Cholinesterase deficiency No 12/01/24 11:38 You/Your Family Experience No 12/01/24 11:38 fever (hyperthermia) with Relationship Recent Exposure to Contagious No 12/14/24 11:50 Disease Does patient have nerve No 12/01/24 11:38 stimulator Patient instructed to have device shut off --Does patient have Pacemaker No 12/14/24 11:50 or ICD? When Was Last Pacemaker Check QUESTION #4 FULL TEXT: You/Your Family Experience fever (hyperthermia) with Anesthesia Last Oral Intake Last Oral intake: Last Oral Intake NPO since 06:30 12/14/24 11:50 Meds taken in AM with sips of water? Meds patient instructed to take am of surgery PONV PONV - direct mail coordinator: PONV - direct mail coordinator Female Yes 12/01/24 11:38 HX of Motion Sickness No 12/01/24 11:38 HX of N/V After Surgery No 12/01/24 11:38 Non-Smoker Yes 12/01/24 11:38 Duration of Surgery greater No 12/01/24 11:38 than 60 minutes Number of Risk Factors 2 12/01/24 11:38 PONV Score Moderate Risk 12/01/24 11:38 Height & Weight Height & Weight: Anesthesia: Height & Weight Height 5 ft 3.5 in 12/14/24 11:50 Weight: 58 kg 12/14/24 11:50 Body Mass Index (BMI) 22.3 12/14/24 11:50 Respiratory Assessment Respiratory Assessment - direct mail coordinator: Respiratory Tract Infection Hx - direct mail coordinator Hx Respiratory Tract Infection No 12/01/24 11:38 STOP Sleep Apnea STOP Sleep Apnea - direct mail coordinator: STOP Sleep Apnea - direct mail coordinator Hx Hypertension No 12/01/24 11:38 Hx Sleep Apnea No 12/01/24 11:38 CPAP BIPAP Do you snore loudly (louder No 12/01/24 11:38 than talking or can be heard Do you often feel tired/ No 12/01/24 11:38 fatigued/ sleepy during daytime? Has anyone observed you stop No 12/01/24 11:38 breathing during sleep? STOP Results Negative 12/01/24 11:38 QUESTION #5 FULL TEXT : Do you snore loudly (louder than talking or can be heard through closed doors)? Tobacco Use History Tobacco Use History - direct mail coordinator: Tobacco Use History - direct mail coordinator Tobacco Use Smoking Status Never smoker 12/01/24 11:38 Hx Tobacco Use No 12/01/24 11:38 Years Smoking Packs Smoked per Day Smoking Cessation Date was within the last 15 years Hx Smoking Cessation Date Hx Smoking Cessation Counseling Hematologic Medial History Hematologic Hx - direct mail coordinator: Hematologic Medical Hx - dining room maid Hx of Blood Transfusion No 12/01/24 11:38 Hx of Transfusion in last 3 No 12/01/24 11:38 Months Date of Last Transfusion (if within last 3 months) Ever experience any problems No 12/01/24 11:38 with transfusion(s)? Specify any problems Hx of Preganancy in last 3 No 12/01/24 11:38 Months Nurse Filling Out Transfusion DSCHRIBER 12/01/24 11:38 & Questions: Date: 12/01/24 12/01/24 11:38 Time: 11:39 12/01/24 11:38 Patient unable to answer at this time (ie. confused, unrespo /Reproduction History /Reproductive History - direct mail coordinator: /Reproductive Hx- direct mail coordinator Hx Now No 12/01/24 11:38 Gestational Age (in weeks): EDC: Hx Hx Para Hx Section SAB No 12/01/24 11:38 Active Medications Active Medications: Current Medications Generic Name Dose Route Start Last Admin Trade Name Anjelica PRN Reason Stop Dose Admin Clindamycin Phosphate 900 mg in 50 mls @ 75 mls/hr 12/14/24 13:00 Cleocin IV 12/14/24 13:39 INTRAOP ONE Lactated Ringer's 1,000 mls @ 15 mls/hr 12/14/24 11:45 12/14/24 12:00 IV 15 mls/hr .Q48H WILLIAN Administration PFSH Medical History Wears glasses Wears contact lenses Post-menopausal Alcohol use Easy bruising Restless legs Non-smoker Home Medications ?Medication ?Instructions ?Recorded ?Last Taken ?Type estradiol 0.025 mg/24 hr 1 patch transdermal MOTH 09/05/22 12/14/24 History semiweekly transdermal patch linaclotide 290 mcg capsule 290 mcg PO QODAY 12/01/24 12/13/24 History (Linzess) Allergy/AdvReac Type Severity Reaction Status Date / Time Penicillins Allergy Mild unknown Verified 12/14/24 11:50 Surgical History (Updated 12/01/24 @ 11:43 by Kary Leonard) Hx of colonoscopy H/O: hysterectomy Social History household members: none Smoking Status: Never smoker alcohol intake: current alcohol intake frequency: 0-2 drinks per day Review of Systems (Anesthesia) ROS Narrative System reviewed and no additional complaints, except as documented. Physical Exam Const alert, oriented x3 and average body habitus Resp normal respiratory effort, normal air movement and clear to auscultation bilaterally Cardio regular rate, regular rhythm, no murmurs and diaphoretic
[2024-12-14 12:29] VITALS: BP 138/91; PULSE 65; RESP 16; TEMP 36.3; O2SAT 100
--- NOTE | 2024-12-14 12:32 | PCM.HP.STD ---
HPI - General HPI Narrative Navya Zambrano is a delightful 64-year-old female with a left anterior proximal arm/shoulder mass of several years duration. It is grown and is starting to bother her as it rubs against clothing. She does not have any constitutional symptoms/unintended weight loss. No new lumps or bumps in the axilla. The mass does not drain. Patient does not have a history of bleeding or clotting problems. She does not have diabetes. She is not a smoker. Current Encounter (DATE OF SURGERY H&P UPDATE): I saw and examined the patient this morning in pre-operative holding. We discussed risks and benefits of today's surgery and they would like to proceed. NO CHANGE in health history since last seen and evaluated. Ready to proceed with surgery. PFSH Medical History Wears glasses Wears contact lenses Post-menopausal Alcohol use Easy bruising Restless legs Non-smoker Home Medications ?Medication ?Instructions ?Recorded ?Last Taken ?Type estradiol 0.025 mg/24 hr 1 patch transdermal MOTH 09/05/22 12/14/24 History semiweekly transdermal patch linaclotide 290 mcg capsule 290 mcg PO QODAY 12/01/24 12/13/24 History (Linzess) Allergy/AdvReac Type Severity Reaction Status Date / Time Penicillins Allergy Mild unknown Verified 12/14/24 11:50 Surgical History (Updated 12/01/24 @ 11:43 by Kary Leonard) Hx of colonoscopy H/O: hysterectomy Social History household members: none Smoking Status: Never smoker alcohol intake: current alcohol intake frequency: 0-2 drinks per day Vital Signs Vital Signs Vital Signs: 12/14/24 11:50 12/14/24 11:50 12/14/24 12:29 Temperature 97.4 F L 97.4 F L Temperature Source Temporal Pulse Rate 65 65 Respiratory Rate 16 16 Respiratory Pattern Normal Blood Pressure 138/91 H 138/91 H Blood Pressure Mean 106 Blood Pressure Source Monitor Blood Pressure Position Semi-Fowlers Blood Pressure Location Right Arm Pulse Ox 100 100 Oxygen Delivery Method Room Air Room Air Weight Weight: 127 lb 13.89 oz Body Mass Index (BMI) 22.3 Physical Exam Narrative 4 X 4.5 cm mobile left anterior shoulder mass/anterior proximal arm Feels like it's in the subcutaneous tissues Assessment & Plan Assessment/Plan (1) Mass of shoulder region: PLAN: Plan I talked to the patient extensively about the risks of surgery, including bleeding, infection, damage to surrounding structures, poor scaring, surgical site dehiscence and wound formation, recurrence of the mass, need for wound care, need for repeat operations, failure to obtain the desired result, DVT/PE, and the risks of anesthesia including , including stroke (from low blood pressure/ischemia or clot). The benefits and alternatives of this surgery were also discussed. All of their questions were answered. Plan to better characterize the lesion with ultrasound preoperatively (ordered). Photos taken and plan to submit for insurance authorization for excision and primary closure, left shoulder mass. CPT codes for insurance prior authorization are as follows: 19147, [id number] INTERVAL H&P PLAN, DATE OF SURGERY: We will proceed with surgery today. US reassuring of lipoma. Plan for excision. I marked it with her in preop holding and she was in agreement with the site marking. We discussed the above noted risks, benefits, and alternatives to today's procedure.
[2024-12-14] MEDS: Clindamycin 900 MG/50 ML BAG 75 MG IV (12:48)
--- NOTE | 2024-12-14 13:00 | MASS_PTH ---
PATIENT: DERIC FRANCES [place] [facility] [id number] AGE/SX: 64/F ROOM: RE12/14/[address]: Dr. Samm Wallis MD : 1960 BED: DIS: 12/14/2024 SPEC #: [id number] RECD: 12/14/24 15:19 STATUS: HARMONY HUYEN #: [id number] ROSA MARIA: 12/14/24 13:[address]: Samm Wallis DEPT: SURGICAL PATHOLOGY RECD BY: Bishnu Mccord ENTERED: 12/14/24 15:29 SP TYPE: Mass OTHR DR: Dr. Michael Chugn MD Tissues: A - Shoulder, NOS Procedures: Surgery Specimen Level III HEADER OPERATION: Excision left shoulder mass PRE-OP DIAGNOSIS: Mass of shoulder region TISSUE SUBMITTED: A- Left shoulder lipoma MICROSCOPIC DIAGNOSIS A. Left shoulder, mass, excision: * Mature adipose consistent with lipoma. MICROSCOPIC DESCRIPTION Slides are reviewed. GROSS DESCRIPTION A. Received in formalin in a container labeled with the patient's name, date of , and left shoulder lipoma is an unoriented and thinly encapsulated portion of diamond-yellow adipose tissue measuring 5.0 x 3.0 x 1.3 cm and 7.5 g. The outer surface is inked green, and serial sections reveal homogenous diamond-yellow surfaces with no hemorrhage or necrosis identified. Property Utilization Manager sections are submitted in A1-2. [facility] 12-14-2024 CPT:[id number]
[2024-12-14] MEDS: Bupiv/Epi 0.25% 30 ML Vial (13:12)
[2024-12-14] MEDS: Lidocaine 1% /Epi 1:100 (20ml) 20 ML Vial (13:12)
[2024-12-14 13:30] VITALS: BP 138/91; BP 92/61; PULSE 79; PULSE 81; RESP 16; TEMP 36.3; O2SAT 98; O2SAT 99
--- NOTE | 2024-12-14 13:30 | PCM.POST.ANE ---
Anesthesia: Postop Eval I Current Vital Signs Temperature: 97.4 F Pulse Rate: 79 Blood Pressure: 92/61 Respiratory Rate: 16 Pulse Ox: 98 Oxygen Delivery Method: Room Air Assessment Airway patent: Yes Spontaneous unlabored respirations: Yes Mental status: Awake and Calm nausea: No Vomiting: No Anesthesia Complication: No Fluid Hydration Crystalloid volume administer (ml): 600 Total IV fluid infused: 600 Progress Note Anesthesia document: Postop Eval 1 completed: Yes
[2024-12-14 13:35] VITALS: BP 138/91; BP 95/77; PULSE 80; RESP 16; O2SAT 98
[2024-12-14 13:40] VITALS: BP 138/91; BP 91/70; BP 91/75; PULSE 72; PULSE 78; RESP 16; TEMP 36.6; O2SAT 97; O2SAT 99
[2024-12-14 14:10] VITALS: BP 138/91
--- NOTE | 2024-12-14 15:42 | POSTOPAN2_ITS ---
Anesthesia Postop Eval I Sum Postop Eval Completion status Anesthesia document: Postop Eval 1 completed: Yes Anesthesia Postop Eval I Summary Anesthesia Postop Eval I Summary: Anesthesia Postop Eval I: Assessment Summary Airway patent Yes 12/14/24 13:30 PARKING ASSISTANT.GDOTT Spontaneous unlabored Yes 12/14/24 13:30 PARKING ASSISTANT.GDOTT respirations Mental status Awake,Calm 12/14/24 13:30 PARKING ASSISTANT.GDOTT nausea No 12/14/24 13:30 PARKING ASSISTANT.GDOTT Vomiting No 12/14/24 13:30 PARKING ASSISTANT.GDOTT Anesthesia Postop Eval I: Fluid Summary Crystalloid volume administer 600 12/14/24 13:30 PARKING ASSISTANT.GDOTT (ml) Colloids volume administered ( ml) Blood Product volume administered (ml) Total IV fluid infused 600 12/14/24 13:30 PARKING ASSISTANT.GDOTT Anesthesia Postop Eval I: Summary Notes Anesthesia Complication No 12/14/24 13:30 PARKING ASSISTANT.GDOTT Anesthesia Complication Comment: Post-operative progress note Anesthesia: Postop Eval II Evaluation Mental status: Awake Pain Level: 0 nausea: No Vomiting: No Complications Anesthesia Complication: No
--- NOTE | 2024-12-14 15:42 | PCM.POSTANE2 ---
Anesthesia Postop Eval I Sum Postop Eval Completion status Anesthesia document: Postop Eval 1 completed: Yes Anesthesia Postop Eval I Summary Anesthesia Postop Eval I Summary: Anesthesia Postop Eval I: Assessment Summary Airway patent Yes 12/14/24 13:30 [employer]ERCIAL [email or web address] [email or web address] Spontaneous unlabored Yes 12/14/24 13:30 COMMERCIAL LOAN [email or web address].[email or web address] respirations Mental status Awake,Calm 12/14/24 13:30 COMMERCIAL LOAN [email or web address].[email or web address] nausea No 12/14/24 13:30 COMMERCIAL LOAN [email or web address].[email or web address] Vomiting No 12/14/24 13:30 COMMERCIAL LOAN [email or web address].[email or web address] Anesthesia Postop Eval I: Fluid Summary Crystalloid volume administer 600 12/14/24 13:30 COMMERCIAL LOAN [email or web address].[email or web address] (ml) Colloids volume administered ( ml) Blood Product volume administered (ml) Total IV fluid infused 600 12/14/24 13:30 COMMERCIAL LOAN ASSISTANT.[email or web address] Anesthesia Postop Eval I: Summary Notes Anesthesia Complication No 12/14/24 13:30 COMMERCIAL LOAN [email or web address].[email or web address] Anesthesia Complication Comment: Post-operative progress note Anesthesia: Postop Eval II Evaluation Mental status: Awake Pain Level: 0 nausea: No Vomiting: No Complications Anesthesia Complication: No
--- NOTE | 2024-12-14 17:10 | OP.PCM_ITS ---
Operative Report (Standard) Operative Information Date of Procedure: 12/14/24 Pre-Operative Diagnosis: Left anterior shoulder/arm mass Post-Operative Diagnosis: Same Surgery/Procedure Performed: 1) Excision of left anterior shoulder/arm mass, 3.7 x 3 cm (CPT 22509) 2) Intermediate closure of left shoulder wound, 4 cm (CPT 25223) department assistant: Yes Tandem Mill Operator: Sohan Travis Tasks completed by product development assistant: Retracting Type of Anesthesia: MAC/Supplemental (20 cc of 50-50 mixture of 1% lidocaine with 1-200,000 epinephrine and quarter percent Marcaine with 1-200,000 epinephrine) RN Documented Start/Stop Times: Operation Date: 12/14/24 13:00 Case Time Into Pre-Op 12/14/24 11:33 Out of Pre-Op 12/14/24 12:42 Anesthesia Start 12/14/24 12:48 Into Room 12/14/24 12:48 Procedure Start 12/14/24 13:04 Procedure End 12/14/24 13:20 Anesthesia End 12/14/24 13:27 Out of Room 12/14/24 13:27 Into Recovery 12/14/24 13:30 Into Phase II Recovery 12/14/24 13:52 Out of Phase II 12/14/24 14:20 Procedure Start Time: 13:04 Procedure Stop Time: 13:20 Select all DRAINS/GRAFTS/IMPLANTS that apply: None Estimated Blood Loss: Minimal Specimen collected: Yes Description of specimen(s) removed: Left shoulder mass Description of surgery: Indications: Navya Zambrano is a delightful 64-year-old female with a left shoulder mass she u nderstands the risk benefits and alternatives of excision and presents today for removal. Ultrasound demonstrated likely lipoma. Procedure details: Patient was correctly identified in preoperative holding and I marked the mass with her. She was in agreement with the site marking. He was taken back to the operating room where she was administered sedation and local anesthesia as noted above. She was placed in the supine position through the procedure. Anesthesia was given time to take effect and she was prepped and draped in sterile fashion. A timeout was performed. Using a 15 blade scalpel, a direct longitudinal incision was made over the left anterior shoulder mass and careful dissection with tenotomy scissors was taken around the capsule of the well-circumscribed fatty mass. Hemostasis was obtained with Bovie electrocautery during dissection, and the mass was removed in a single piece and sent to pathology. It measured 3.7 x 3 cm. Hemostasis was obtained with Bovie electrocautery and the wound was washed with copious amounts normal saline. The wound was then closed with 3-0 Monocryl deep dermal suture followed by 3-0 Monocryl running subcuticular suture for 4 cm i ntermediate closure. Prineo tape was applied over the incision. Patient was awakened and taken the PACU in stable condition and tolerated the procedure well. Surgical Findings: Left shoulder mass consistent with lipoma (fatty tissue) Complications Complications: No
--- OUTSIDE RECORDS SUMMARY | 2024-12-14 20:50 | XMS RPT_ITS | CCD ---
Author Organization [facility] Inform ion [facility] Care Team Providers Care Doping Supervisor Name Role Phone Ajith Chung MD Primary Care Provider LAITH MCCLOUD Attending Unavailable AJITH CHUNG Primary Care UnavailLAITH Chandra Referring Unavailable AJITH CHUNG Primary Care Unavailmario Chung MD, Dr. Rodriguez Primary Care Provider Dr. Ajith Chung MD Referring Provider [phone] Kojo Kaye Attending Provider [phone] Omar Shi DO Attending Provider Dr. Omar Shi DO Referring Provider Dr. Samm Wallis MD Attending Provider Dr. Samm Wallis MD Referring Provider Ajith Chung Primary Care Unavailable Maryann Chavis Attending Unavailable Maryann Chavis Referring Unavailable Ajith Chung Primary Care Unavailable Maryann Chavis Attending Unavailable Maryann Chavis Referring Unavailable Juliet, Ajith Primary Care Unavailable Omar Shi Attending Unavailable Omar Shi Referring Unavailable Samm Wallis Attending Unavailable Samm Wallis Referring Unavailable Juliet, Christophjohn Primary Care Unavailable Samm Wallis Attending Unavailable Samm Wallis Referring Unavailable Ranivan, Christophjohn Primary Care Unavailable Maldonado Scott Attending Unavailable Ranivan, Christopher Primary Care Unavailable Juliet, Christniraj Referring Unavailable Jacob Krause Attending Unavailable Jacob Krause Referring Unavailable Ranivan, Christopher Primary Care Unavailable [facility] Unavailable Maryann Chavis Attending Unavailable Ajith Chung Referring Unavailable Ajith Chung Primary Care Unavailable Kojo Kaye Attending Unavailable Ajith Chung Referring Unavailable Ajith Chung Primary Care Unavailable Omar Shi Attending Unavailable Ajith Chung Referring Unavailable Samm Wallis Attending Unavailable Ajith Chung Referring Unavailable Ajith Chung Primary Care Unavailable Brian NEWS SPECIALIST, Blanca Attending Unavailable Ajith Chung Primary Care Unavailable [facility] Attending Unavailable Ajith Chung Primary Care Unavailable Allergies Allergy Classification Reported Allergen(s) Allergy Type Date of Onset Reaction(s) Facility (8 sources) Azithromycin; Translations: [AZITHROMYCIN] Drug Allergy 10-08-2006 Diarrhea [facility] (8 sources) Cephalexin; Translations: [CEPHALEXIN] Drug Allergy 10-08-2006 GI Upset [facility] (2 sources) Penicillins Allergy to substance 11-11-[address] [facility] Comment on above: reaction as a child (1 source) Penicillins Drug allergy (disorder) 12-01-[address] [facility] Repository Medications Current Medications Medication Drug Class(es) Dates Sig (Normalized) Sig (Original) 84 hr estradiol 0.17746 mg/hr transdermal system (14 sources) Estrogen Start: 12-03-2022 End: 03-08-2024 apply 1 dose transdermal route every hour estradiol 0.025 mg/24 hr APPLY 1 PATCH EVERY THURSDAY AND THURSDAY DIRECTED 24 Patch 3 03/08/2024 Active Start: 09-05-2022 Estradiol 0.02 5 mg/24 hr patch semiweekly Active NMA TD September 05, 2022 1:00am Start: 09-05-2022 Estradiol Acti ve PATCH TD September 05, 2022 12:00am Start: 12-31-2021 estradiol (TONY RA, VIVELLE-DOT) 0.025 mg/24 hr APPLY 1 PATCH EVERY THURSDAY AND THURSDAY DIRECTED 24 Patch 3 12/31/2021 Active Start: 02-06-2021 End: 12-31-2021 estradiol (SAMIR, VIVELLE-DO T) 0.025 mg/24 hr Apply 1 Patch as directed every Thursday and Thursday. 24 Patch 3 02/06/2021 12/31/2021 Discontinued Comment on above: Apply 1 Patch as dir ected every Thursday and Thursday. APPLY 1 PATCH EVERY THURSDAY AND THURSDAY DIRECTED ibuprofen 200 mg oral tablet (7 sources) Nonsteroidal Anti-inflammatory Drug Start: 008 IBUPROFEN 200 MG TAB Take 1-2 tablet's) every four(4) to six(6) hours as needed for pain. 0 0 12/07/2007 Active Comment on above: Take 1-2 tablet's) e very four(4) to six(6) hours as needed for pain. metoclopramide 5 mg oral tablet (1 source) Dopamine-2 Receptor Antagonist Start: 025 take 1 tablet by mouth before mealtime Metoclopramide Hcl 5 mg tablet Active 5 mg PO before meals November 23, 2024 12:00am naproxen sodium 220 mg oral tablet (7 sources) Nonsteroidal Anti-inflammatory Drug Start: 008 naproxen sodium(ALEVE 220 MG TAB) as necessary 0 0 12/07/2007 Active Comment on above: as necessary 24 hr tolterodine tartrate 2 mg extended release oral capsule (1 source) Cholinergic Muscarinic Antagonist Start: 024 take 1 capsule by mouth once daily tolterodine ER (DETROL LA) 2 mg 24 hr capsule Take 1 capsule by mouth once daily. 90 capsule 3 07/14/2023 Active Completed/Discontinued Medications Medication Drug Class(es) Dates Sig (Normalized) Sig (Original) azithromycin 250 mg oral tablet (4 sources) Macrolide Antimicrobial Start: 09-05-2022 End: 09-30-2023 take 2-5 tablets by mouth once daily Azithromycin 250 mg tablet Discontinued 0 PO .COMPLEX 6 September 05, 2022 1:00am September 30, 2023 8:11am take 500 mg today (day 1), then 250 mg for 4 days (days 2-5) PO linaclotide 0.145 mg oral capsule (10 sources) Guanylate Cyclase-C Agonist Start: 08-19-2024 End: 09-28-2024 take 1 capsule by mouth once daily in the morning Linaclotide (Linzess) 290 mcg capsule Active 290 ug PO EVERY MORNING September 28, 2024 10:58am Start: 07-29-2024 End: 08-19-2024 take 1 capsule by mouth once daily in the morning Linaclotide (Linzess) 145 mcg capsule Discontinued 290 ug PO EVERY MORNING August 19, 2024 10:35am August 19, 2024 4:10pm Start: 06-28-2024 End: 07-29-2024 take 1 capsule by mouth once daily in the morning Linaclotide (Linzess) 72 mcg capsule Discontinued 72 ug PO EVERY MORNING June 28, 2024 1:00am July 29, 2024 5:35pm lubiprostone 0.008 mg oral capsule (4 sources) Chloride Channel Activator Start: 06-21-2024 End: 10-19-2024 take 1 capsule by mouth twice daily Lubiprostone 8 mcg capsule Discontinued 8 ug PO TWICE A DAY June 21, 2024 12:18pm October 19, 2024 9:05am predniSONE 10 mg oral tablet (2 sources) Start: 02-01-2024 End: 04-23-2024 take 3 tablets by mouth once daily, then take 2 tablets by mouth once daily, then take 1 tablet by mouth once daily Prednisone 10 mg tablet Discontinued 10 mg PO DAILY February 01, 2024 12:00am April 23, 2024 8:11am 3 tablets daily x3 days, then 2 tablets daily x3 days, then 1 tablet daily x3 days sulfamethoxazole 800 mg / trimethoprim 160 mg oral tablet (2 sources) Dihydrofolate Reductase Inhibitor Antibacterial, Sulfonamide Antimicrobial Start: 04-23-2024 End: 04-28-2024 Sulfamethoxazole- Trimethoprim 800-160 mg tablet Discontinued 1 {tbl} PO TWICE A DAY 10 April 23, 2024 12:00am April 27, 2024 12:00am April 28, 2024 12:10am trospium chloride 20 mg oral tablet (3 sources) Cholinergic Muscarinic Antagonist Start: 02-19-2021 take 1 tablet by mouth twice daily trospium (SANCTURA) 20 mg tablet Take 1 tablet by mouth twice daily. 60 tablet 4 02/19/2021 Active Comment on above: Take 1 tablet by deisi th twice daily. Problems Active Problems Problem Classification Problem Date Documented Date Episodic/Chronic Acute bronchitis (4 sources) Acute bronchitis; Translations: [Acute bronchitis, unspecified] 09-05-2022 Episodic Genitourinary symptoms and ill-defined conditions (7 sources) Urge incontinence of urine; Translations: [Urge incontinence] Onset: 2 12-16-2011 Chronic Other gastrointestinal disorders (4 sources) Constipation; Translations: [Constipation, unspecified] 05-11-2024 Episodic Other gastrointestinal disorders (1 source) Constipation, unspecified; Translations: [Constipation, unspecified] Onset: 5 Episodic Other hereditary and degenerative nervous system conditions (7 sources) System disorder of the nervous system; 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] 01-07-2006 Chronic Other skin disorders (4 sources) Mass of shoulder region; Translations: [Localized swelling, mass and lump, unspecified upper limb] 11-11-2024 Episodic Other skin disorders (2 sources) Mass of body structure 11-11-2024 Episodic Other skin disorders (1 source) Localized swelling, mass and lump, left upper limb; Translations: [Localized swelling, mass and lump, left upper limb] Onset: Episodic Spondylosis; intervertebral disc disorders; other back problems (7 sources) Degeneration of cervical intervertebral disc; Translations: [Other cervical disc degeneration, unspecified cervical region] Onset: 8 12-07-2007 Chronic Sprains and strains (2 sources) Sprain of metacarpophalangeal joint of unspecified finger, initial encounter; Translations: [Sprain of metacarpophalangeal joint of right hand] 09-30-2023 Episodic Thyroid disorders (7 sources) Goiter; Translations: [Nontoxic goiter, unspecified] 04-18-2008 Chronic Past or Other Problems Problem Classification Problem Date Documented Da te Episodic/Chronic Genitourinary symptoms and ill-defined conditions (13 sources) Blood in urine; Translations: [Hematuria, unspecified] Onset: 01-11-2008 Resolved: 07-15-2016 04-21-2023 Episodic Menopausal disorders (1 source) Menopausal symptom; Translations: [Menopausal and female climacteric states] Onset: 10-14-2012 Resolved: 07-15-2016 07-15-2016 Chronic Other nutritional; endocrine; and metabolic disorders (1 source) Overweight; Translations: [Overweight] Onset: 04-14-2008 Resolved: 12-16-2011 12-16-2011 Episodic Other screening for suspected conditions (not mental disorders or infectious disease) (5 sources) Patient encounter status; Translations: [Encounter for screening mammogram for malignant neoplasm of breast] Onset: 04-03-2023 Episodic Residual codes; unclassified (1 source) Disturbance in sleep behavior; Translations: [Sleep disorder, unspecified] Onset: 04-14-2008 Resolved: 07-15-2016 07-15-2016 Episodic Spondylosis; intervertebral disc disorders; other back problems (1 source) Pain in thoracic spine; Translations: [Pain in thoracic spine] Onset: 12-07-2007 Resolved: 07-15-2016 07-15-2016 Episodic Urinary tract infections (1 source) Urinary tract infection, site not specified; Translations: [Urinary tract infection, site not specified] Onset: 06-17-2024 Episodic Results Test Name Value Interpretation Reference Range Facility Ext Non Vasc Limited/Soft Ti sson 11-23-2024 Ext Non Vasc Limited/Soft Tiss [facility] Imaging Services [address] [place] [id number] Ext Non Vasc Limited/Soft Tiss MR#: [id number] Acct: [id number] Name: NAVYA FRANCES Rep #: [id number] : 1960 F 64 From: Patrick dangelo MD PCP: Dr. Ajith Chung MD Status: REG CLI Study: Ext Non Vasc Limited/Soft Tiss Date of Exam: 0 11/23/24 Exam# [id number] Ordering Dr: Samm Wallis MD PROCEDURE: EXT NON VASC LIMITED/SOFT TISS 11/23/2024 REASON FOR EXAM: MASS ON SHOULDER TECHNIQUE: Ultrasound targeted to the palpable abnormality at the left shoulder.. COMPARISON: None FINDINGS: The palpable lump corresponds to a 4.1 cm by 3.6 cm x 0.7 cm slightly echogenic nodular density suggestive of a lipoma. US/Ext Non Vasc Limited/Soft Tiss IMPRESSION: The palpable abnormality measuring 4.1 cm x 3.6 cm x 0.9 cm most likely represents a lipoma. Reading Location: [id number] CC: Dr. Ajith Chung MD; Dr. Samm Wallis MD Ratings Analyst: Signed Normal [facility] Gastric Emptying Studyon Gastric Emptying Study [facility] Imaging Services [address] [place] [address] Gastric Emptying Study MR#: [id number] Acct: [id number] Name: NAVYA FRANCES Rep #: [id number] : 1960 F 64 From: Reilly Lee PCP: Dr. Ajith Chung MD Status: REG CLI Study: Gastric Emptying Study Date of Exam: 11/11/24 Exam# [id number] Ordering Dr: Omar Shi DO PROCEDURE: GASTRIC EMPTYING STUDY 11/11/2024 REASON FOR EXAM: BLOATING COMPARISON: None. TECHNIQUE: The patient ingested a standard meal of cooked oatmeal was ingested. There was no vomiting postprandially. Imaging for a total of 1 hour was obtained. Regions of interest were drawn, and a geometric mean was used to calculate a [id number]. Medications taken in the past 24 hours that may affect gastric emptying: None RADIOPHARMACEUTICAL: 1.2 mCi technetium 99 M sulfur colloid in oatmeal, orally administered. FINDINGS: Linear fit half time of 52.2 minutes.. At the time of imaging, gastroesophageal reflux was not identified. Percent activity remaining in stomach: % gastric emptying at 12 minutes was 4%, 30 minutes 17%, 42 minutes 31%, 48 minutes 38%, at 60 minutes 56%. NM/Gastric Emptying Study IMPRESSION: Normal semi solid phase gastric emptying. Reading Location: [place] [address] CC: Dr. Ajith Chung MD; Omar Shi DO Ratings Analyst: Signed Normal [facility] Plastic Surgery Visit Report on 11-11-2024 Plastic Surgery Visit Report [facility] Plastic Reconstructive Surgery [address], [address] [place] [address] OFFICE VISIT Date of Service: 11/11/24 MR#: [id number] Acct: [id number] Name: NAVYA FRANCES Rep #: [id number] : 1960 Provider: Dr. Samm Wallis MD Age/Sex: 64/F Location: [facility] Status: Signed Intake Vital Signs 3 08/19/24 07:57 11/11/24 13:23 Height 5 ft 3.5 in Weight: 127 lb 6 oz BMI 22.1 BP 122/84 H 126/85 H Blood Pressure Location Rt brachial Position Sitting Sitting Respiration 18 Pulse 55 L 65 Pulse Source Monitor Temp 98.0 F Temp Source Oral Pulse Oximetry (%) 99 95 Oxygen Delivery Method room air room air Intake Visit Reasons: SYNOVIAL CYST/ LIPOMA Chief Complaint: lipoma/cyst Is patient in pain?: No Allergies Penicillins Allergy (Mild, Verified 11/11/24 13:22) unknown Medications 3 ???Medication ???Instructions ???Recorded ???Confirmed ???Type estradiol 0.025 mg/24 hr patch transdermal 09/05/22 5 History semiweekly transdermal patch linaclotide 290 mcg capsule 290 mcg PO QAM #30 caps 09/28/24 0 11/11/24 Rx (Linzess) Have you fallen in the past year?: No PFSH Surgical History H/O: hysterectomy Social History household members: none Smoking Status: Never smoker alcohol intake: current alcohol intake frequency: 0-2 drinks per day HPI SYNOVIAL CYST/ LIPOMA Details: Navya Frances is a delightful 64-year-old female with a left anterior proximal arm/shoulder mass of several years duration. It is grown and is starting to bother her as it rubs against clothing. She does not have any constitutional symptoms/unintended weight loss. No new lumps or bumps in the axilla. The mass does not drain. Patient does not have a history of bleeding or clotting problems. She does not have diabetes. She is not a smoker. ROS General General: Yes good health; No fatigue, fever(s) or weight loss HENMT HENMT: No rhinitis, sore throat/mouth sore, nasal congestion, contacts or glaucoma Endo Endocrine: No thyroid disease, polydipsia, heat intolerance, cold intolerance, hepatitis or excessive urine Skin Skin: No Bleeding, bruising, changing moles or suspicious lesion Musc Musculoskeletal: No joint pain, joint stiffness, muscle weakness, back pain, osteoarthritis or Muscle aches/ myalgia Neuro Neurological: No headache(s), No lightheadedness and No numbness Cardio Cardiovascular: No chest pain, pacemaker, fatigue or shortness of breat with exertion Psych Psychiatric: No depression, claustrophobia or anxiety Resp Respiratory: No spitting up, shortness of breath, sleep apnea, asthma, emphysema, TB, Cough or Smoker Gastro Gastrointestinal: No diarrhea, constipation, blood in stool, nausea, vomiting or abdominal bloating Jared Hematologic: No anemia, No bleeding and No abnormal bleeding Genitourinary: No urinary frequency, blood in urine or incontinence Exam Details 4 X 4.5 cm mobile left anterior shoulder mass/anterior proximal arm Feels like it's in the subcutaneous tissues Coding Level of Care Code Off vis,new,level 3 Diagnoses Mass of shoulder region R22.30 Assessment and Plan (No Qualifiers) Assessment and Plan (1) Mass of shoulder region: Status: Acute Plan I talked to the patient extensively about the risks of surgery, including bleeding, infection, damage to surrounding structures, poor scaring, surgical site dehiscence and wound formation, recurrence of the mass, need for wound care, need for repeat operations, failure to obtain the desired result, DVT/PE, and the risks of anesthesia including , including stroke (from low blood pressure/ischemia or clot). The benefits and alternatives of this surgery were also discussed. All of their questions were answered. Plan to better characterize the lesion with ultrasound preoperatively (ordered). Photos taken and plan to submit for insurance authorization for excision and primary closure, left shoulder mass. CPT codes for insurance prior authorization are as follows: 42820, 71337 Clinical Quality Measures Falls Risk Screening/Assistive Devices Have you fallen in the past year?: No 11/11/24 1639 Date Samm Wallis MD Cosigner Signature: Date (if applicable) CC: Normal [facility] Gastroenterology Visit Repor ton 10-19-2024 Gastroenterology Visit Report [facility] Gastroenterology [address] [place] [address] OFFICE VISIT Date of Service: 10/19/24 MR#: [id number] Acct: [id number] Name: NAVYA FRANCES Rep #: [id number] : 1960 Provider: Omar Shi DO Age/Sex: 64/F Location: [facility] Status: Signed Intake Vital Signs 08/19/24 07:57 Height 5 ft 3.5 in Weight: 127 lb 6 oz BMI 22.1 BP 122/84 H Position Sitting Pulse 55 L Temp 98.0 F Temp Source Oral Pulse Oximetry (%) 99 Oxygen Delivery Method room air Intake Visit Reasons: Constipation Allergies Penicillins Allergy (Mild, Verified 08/19/24 07:57) unknown Medications ???Medication ???Instructions ???Recorded ???Confirmed ???Type estradiol 0.025 mg/24 hr patch transdermal 09/05/22 5 History semiweekly transdermal patch linaclotide 290 mcg capsule 290 mcg PO QAM #30 caps 09/28/24 0 10/19/24 Rx (Linzess) Have you fallen in the past year?: No PFSH Surgical History H/O: hysterectomy Social History household members: none Smoking Status: Never smoker alcohol intake: current alcohol intake frequency: 0-2 drinks per day HPI HPI Details: NAVYA FRANCES, is a 64 F who presents to the office today for follow up. *BGI established 05.11.24 Pt has had constipation for years now but has progressively become worse. She was taking 4 sennas daily for over 10 years. About 9 months ago she stopped taking the senna and started using suppositories to have a bowel movement. She uses one every day and without it she is unsure if she would ever have a bowel movement. She feels like it my be related to the muscles down there. She has some abdominal discomfort and bloating but no pain. Her last colonoscopy was [address] Tsai with no pertinent abnormalities. She denies abdominal pain, n/v, heartburn, diarrhea or blood in her stool. SITZ Day 3: 11 sitz markers Day 5: 3 sitz markers OV 4.9.25 pt reports she is taking Linzess 290mcg every morning and continues to have alternating bowel movements. Pt reports that some days she will have diarrhea 4-5 times and other days will not have a bowel movement all day. Pt reports that she will have diarrhea even if she has not eaten; denies nocturnal diarrhea and fecal incontinence. Pt reports that her last colonoscopy was in 2011 and was told to repeat in 10 years. ROS Const Constitutional: No fatigue, fever(s) or weight change ENT ENT: No difficulty swallowing Gastro GI: Positive for constipation and diarrhea; No abdominal pain, belching, bloating, change in bowel habits, change in stool character, coffee ground emesis, cramping, heartburn, difficulty swallowing, feeling full early, excessive flatus, incontinent of stools, Vomiting blood/hematemesis, Blood in stool, loose stools, Black,tarry stools, nausea/dyspepsia, pain with swallowing, vomiting or other Musc Musculoskeletal: No joint pain Skin Skin: No yellowing of the eye or itchy eyes Psych Psychiatric: No anxiety and No depression Endo Endocrine: No fatigue or weight change Aller/Imm Allergy/Immunologic: No itchy eyes Jared/Lymp Hematologic/Lymphatic: No easy bleeding or easy bruising Exam Const General: cooperative and comfortable Nutritional Appearance: average body habitus and well nourished [facility] Head: normal to inspection Ears: hearing grossly normal bilaterally Nose: external nose normal Face and sinus: normal facial exam Mouth: oral mucosae normal Throat: posterior oropharynx normal Eyes General: appearance normal, both eyes and all related structures Neck Neck: normal visual inspection Chest Chest palpation inspection: normal inspection of the chest and normal palpation of entire chest wall Resp Effort Inspection: normal respiratory effort Auscultation: Bilateral: Clear to Auscultation Cardio Palpation: normal PMI Rate: regular rate Rhythm: regular rhythm GI Inspection: normal to inspection Auscultation: normal bowel sounds Percussion: normal to percussion Palpation: no hepatosplenomegaly Skin General: no rashes or lesions noted Neuro General: patient alert Extrem General: normal to inspection Psych Affect: normal affect Assessment and Plan Assessment and Plan (1) Constipation: Status: Acute Plan: This is a healthy 63 yo with extensive hx of constipation. SHe has had constipation for as long as she can remember. She has taken senna daily for years but now only uses suppositories. She stated that without a suppository she does not believe she would be able to go. She underwent a 3 day kub and 5 day kub. It displayed slow transit constipation and pelvic floor dysfunction. She does admit to some bloating. (more content not included)... Normal [facility] Laboratory - Chemistry and C hemistry - challengeOrdered By: Kojo Naidu on 08-19-2024 Bilirubin Ql (U) Negative [facility] Glucose Ql (U) Negative [facility] Ketones Ql (U) Trace (5) [facility] pH (U) 5.0 [pH] [facility] Specific gravity (U) [Rel density] 1.[address] [facility] Urobilinogen (U) [Mass/Vol] 1 mg/dL [facility] - Hematology and Cell countsOrdered By: Kojo Naidu on 08-19-2024 Hemoglobin Ql (U) Negative [facility] - Specimen inform ationOrdered By: Kojo Naidu on 08-19-2024 Clarity (U) Clear [facility] Color (U) YELLOW [facility] - UrinalysisOrder ed By: Kojo Naidu on 08-19-2024 Nitrite Ql (U) Negative [facility] Protein Ql (U) Negative [facility] No Panel InformationOrdered By: Kojo Naidu on 08-19-2024 Urine Le[address]ve [facility] Urine Non-Hemolyzed Blood Negative [facility] Urgent Care Visit Reporton 0 08-19-2024 Urgent Care Visit Report [facility] [address], [address] [place] [address] OFFICE VISIT Date of Service: 08/19/24 MR#: [id number] Acct: [id number] Name: NAVYA FRANCES Rep #: [id number] : 1960 Provider: NATALIE Stone Age/Sex: 64/F Location: [facility] Status: Signed Intake Vital Signs 04/23/24 08:17 08/19/24 07:57 Height 5 ft 3.5 in 5 ft 3.5 in Weight: 124 lb 127 lb 6 oz BMI 21.6 22.1 BP 110/70 122/84 H Position Sitting Pulse 66 55 L Temp 97.6 F L 98.0 F Temp Source Temporal Oral Pulse Oximetry (%) 97 99 Oxygen Delivery Method room air room air Intake Visit Reasons: Urinary tract infection Chief Complaint: Increased urinary urgency and frequency Accompanied by: Self Allergies Penicillins Allergy (Mild, Verified 08/19/24 07:57) unknown Medications ???Medication ???Instructions ???Recorded ???Confirmed ???Type estradiol 0.025 mg/24 hr patch transdermal 09/05/22 5 History semiweekly transdermal patch lubiprostone 8 mcg capsule 8 mcg PO BID #180 caps 06/21/24 Rx linaclotide 145 mcg capsule 145 mcg PO QAM #90 caps 07/29/24 0 08/19/24 Rx (Linzess) Have you fallen in the past year?: No Nurse's Note: Patient has burning and frequency with urination for a week. [facility] Surgical History H/O: hysterectomy Social History household members: none Smoking Status: Never smoker alcohol intake: current alcohol intake frequency: 0-2 drinks per day HPI HPI Chief Complaint: Increased urinary urgency and frequency Details: NAVYA FRANCES, is a 64 F who presents to the office today for complaint of increasing urgency and frequency for the past 5 days. Patient does admit to some small amount of painful urination at the end of her urination stream. Patient denies pelvic or abdominal pain. No nausea, vomiting or diarrhea. No fever, chills, sweats. No other associated symptoms or alleviating/aggravatin g factors. ROS Const Constitutional: No other (6 system ROS completed with pertinent findings in the HPI otherwise normal.) Exam Const General: cooperative and healthy appearing Resp Effort Inspection: normal respiratory effort Auscultation: Bilateral: Clear to Auscultation Cardio Rate: regular rate Rhythm: regular rhythm GI Auscultation: normal bowel sounds General: No CVA tenderness Psych Appearance: grossly normal Mental Status: mental status grossly normal Results POC Urinalysis Dip (Clinic) Office Urine Color YELLOW Last Edit by Francheska Snow MA on 08/19/24 08:08 Office Urine Clarity Clear Last Edit by Francheska Snow MA on 08/19/24 08:08 Office Urine Glucose Negative Last Edit by Francheska Snow MA on 08/19/24 08:08 Office Urine Ketones Trace (5) Last Edit by Francheska Snow MA on 08/19/24 08:08 Off Ur Spec [place] 1.010 Last Edit by Francheska Snow MA on 08/19/24 08:08 Office Urine pH 5.0 Last Edit by Francheska Snow MA on 08/19/24 08:08 Office Urine Bilirubin Negative Last Edit by Francheska Snow MA on 08/19/24 08:08 Office Urine Urobilinogen 1 mg/dL Last Edit by Francheska Snow MA on 08/19/24 08:08 Office Urine Blood Negative Last Edit by Francheska Snow MA on 08/19/24 08:08 Office Urine Blood Hemolyzed Negative Last Edit by Francheska Snow MA on 08/19/24 08:08 Office Urine Protein Negative Last Edit by Francheska Snow MA on 08/19/24 08:08 Office Urine Nitrate Negative Last Edit by Francheska Snow MA on 08/19/24 08:08 Off Ur Leukocytes Negatve Last Edit by Francheska Snow MA on 08/19/24 08:08 Coding Level of Care Code Off vis,new,level 3 Diagnoses Increased urinary frequency R35.0 Assessment and Plan Assessment and Plan (1) Increased urinary frequency: Status: Acute Plan: UA performed in the office today showing no signs of UTI therefore patient decided to go home and take the medications that she has for overactive bladder and then return if she wants to have any further testing. Encouraged to get plenty of rest, drink lots of clear liquids, and use Tylenol or Ibuprofen (unless contraindicated) for fever and comfort. Patient also educated on other symptomatic management techniques. To be seen in 7-10 days if no improvement; sooner if worsening of symptoms. Orders: Orders Culture, Urine Today R30.0 - Dysuria POC Urinalysis Dip (Clinic) Today R30.0 - Dysuria Clinical Quality Measures Falls Risk Screening/Assistive Devices Have you fallen in the past year?: No 08/19/24 0841 Date Kojo Rick Signature: Date (if applicable) CC: Normal [facility] Abdomen Single Viewon 2023 Abdomen Single View [facility] Imaging Services [address] [place], [place] [id number] Abdomen Single View MR#: [id number] Acct: [id number] Name: NAVYA FRANCES Rep #: [id number] : 1960 F 64 From: Merly Ruiz MD PCP: Dr. Ajith Chung MD Status: [facility] CLI Study: Abdomen Single View Date of Exam: 05/21/24 Exam# [id number] Ordering Dr: Maryann Chavis [id number] INDICATION: sitz marker day 5 EXAMINATION/TECHNIQUE: X-RAY - XR Abdomen 1 View COMPARISON: May 19, 2024 FINDINGS: BOWEL GAS PATTERN: There is a moderate amount of stool throughout colon. There are three remaining Sitz markers; one within the expected region of the descending colon and to within the expected region of the sigmoid colon. FREE AIR: Not assessed on a single supine view. ORGANOMEGALY: Not seen. CALCIFICATIONS: No abnormal calcifications observed. LOWER CHEST: No acute pathology. BONES AND SOFT TISSUES: No acute pathology. RAD/Abdomen Single View IMPRESSION: Three remaining Sitz markers. Moderate amount of stool throughout the colon. Electronically Signed: Merly Ruiz MD at 9:37 EST , CC: Dr. Ajith Chung MD; NATALIE Beckett Ratings Analyst: Signed Normal [facility] Abdomen Single Viewon 2023 Abdomen Single View [facility] Imaging Services [address] [place], [place] [address] Abdomen Single View MR#: [id number] Acct: [id number] Name: NAVYA FRANCES Rep #: [id number] : 1960 F 64 From: Jorge spaulding MD PCP: Dr. Ajith Chung MD Status: REG CLI Study: Abdomen Single View Date of Exam: 05/19/24 Exam# [id number] Ordering Dr: Maryann Chavis [id number] INDICATION: sitz marker day 3 EXAMINATION/TECHNIQUE: X-RAY - XR Abdomen 1 View COMPARISON: No relevant prior comparison study available FINDINGS: BOWEL GAS PATTERN: Non-obstructive. No bowel or stomach distention. 11 Sitzmarks are seen scattered throughout the abdomen. These span at least from the splenic flexure distally. There is a right abdominal marker which could be in the sigmoid colon or transverse colon. Moderate colonic stool burden. FREE AIR: Not assessed on a single supine view. ORGANOMEGALY: Not seen. CALCIFICATIONS: No abnormal calcifications observed. LOWER CHEST: No acute pathology. BONES AND SOFT TISSUES: No acute pathology. RAD/Abdomen Single View IMPRESSION: Moderate colonic stool burden. 11 Sitzmarks are seen. Electronically Signed: Jorge Ponce MD at 11:02 EST , CC: Dr. Ajith Chung MD; NATALIE Beckett Ratings Analyst: Signed Normal [facility] Gastroenterology Visit Repor ton 05-11-2024 Gastroenterology Visit Report [facility] Gastroenterology [address] [place] [address] OFFICE VISIT Date of Service: 05/11/24 MR#: [id number] Acct: [id number] Name: NAVYA FRANCES Rep #: [id number] : 1960 Provider: NATALIE Beckett Age/Sex: 64/F Location: [facility] [facility] Status: Signed Intake Vital Signs 09/30/23 08:06 04/23/24 08:17 Height 5 ft 4 in 5 ft 3.5 in Intake Visit Reasons: New Patient Chief Complaint: Constipation Table Attendant Required: No Allergies Penicillins Allergy (Mild, Verified 04/23/24 08:11) unknown Patient : No Have you fallen in the past year?: No Nurse's Note: OV 05.11.24 Pt here to establish care in our office for chronic constipation. Has a formed BM daily. Colonoscopy about 12 yrs ago. Uses a suppository daily for BM. PFSH Surgical History H/O: hysterectomy Social History household members: none Smoking Status: Never smoker alcohol intake: current alcohol intake frequency: 0-2 drinks per day HPI HPI Chief Complaint: Constipation Details: NAVYA FRANCES, is a 64 F who presents to the office today for establishment with [facility]. Pt has had constipation for years now but has progressively become worse. She was taking 4 sennas daily for over 10 years. About 9 months ago she stopped taking the senna and started using suppositories to have a bowel movement. She uses one every day and without it she is unsure if she would ever have a bowel movement. She feels like it my be related to the muscles down there. She has some abdominal discomfort and bloating but no pain. Her last colonoscopy was [address] Tsai with no pertinent abnormalities. She denies abdominal pain, n/v, heartburn, diarrhea or blood in her stool. ROS Const Constitutional: No fatigue, fever(s) or weight change ENT ENT: No difficulty swallowing Gastro GI: Positive for bloating, constipation and excessive flatus; No abdominal pain, belching, change in bowel habits, change in stool character, coffee ground emesis, cramping, diarrhea, heartburn, difficulty swallowing, feeling full early, incontinent of stools, Vomiting blood/hematemesis, Blood in stool, loose stools, Black,tarry stools, nausea/dyspepsia, pain with swallowing, vomiting or other Musc Musculoskeletal: Positive for joint pain and leg pain at night Skin Skin: No yellowing of the eye or itchy eyes Psych Psychiatric: No anxiety and No depression Endo Endocrine: No fatigue or weight change Aller/Imm Allergy/Immunologic: No itchy eyes Jared/Lymp Hematologic/Lymphatic: No easy bleeding or easy bruising Exam Const General: cooperative and comfortable Nutritional Appearance: average body habitus and well nourished [facility] Head: normal to inspection Ears: hearing grossly normal bilaterally Nose: external nose normal Face and sinus: normal facial exam Mouth: oral mucosae normal Throat: posterior oropharynx normal Eyes General: appearance normal, both eyes and all related structures Neck Neck: normal visual inspection Chest Chest palpation inspection: normal inspection of the chest and normal palpation of entire chest wall Resp Effort Inspection: normal respiratory effort Auscultation: Bilateral: Clear to Auscultation Cardio Palpation: normal PMI Rate: regular rate Rhythm: regular rhythm GI Inspection: normal to inspection Auscultation: normal bowel sounds Percussion: normal to percussion Palpation: no hepatosplenomegaly Skin General: no rashes or lesions noted Neuro General: patient alert Extrem General: normal to inspection Psych Affect: normal affect Assessment and Plan Assessment and Plan (1) Constipation: Status: Acute Plan: This is a healthy 63 yo with extensive hx of constipation here today for establishemtn. SHe has had constipation for as long as she can remember. She has taken senna daily for years but now only uses suppositories. Without a suppository she does not believe she would be able to go. I will order a sitz marker test to rule out slow transit constipation vs a pelvic floor disorder. SHe feels it may be related to her pelvic muscles. I gave her samples if Linzess to try pending the results of the sitz marker test. Her last colonoscopy was 12 years ago but would prefer to hold off on a colonoscopy for now. -Sitz marker -Try Linzess -Consider colonoscopy -f/u as needed Orders: Orders Abdomen Single View Today K59.00 - Constipation, unspecified Abdomen Single View 5 Days K59.00 - Constipation, unspecified Coding Level of Care Code Off vis,new,level 3 Diagnoses Constipation K59.00 Clinical Quality Measures Falls Risk Screening/Assistive Devices Have you fallen in the past year?: No 05/11/24 13 (more content not included)... Normal [facility] Urine Cultureon 04-25-2024 URC Escherichia coli Sundown Count 11,000-25,000 Escherichia coli: REACTION Ampicillin Islt WEST[place] >=32 Ampicillin+Sulbac Islt WEST[place] >=32 R ceFAZolin Islt [place]ST[place] <=4 S Cefepime Islt [place] <=0.12 S cefTRIAXone Islt [place] <=0.25 S Ciprofloxacin Islt [place] <=0.25 S B-Lactamase Extended Susc Islt NEG Gentamicin Islt [place] <=1 S Imipenem Islt [place] <=0.25 S levoFLOXacin Islt [place] <=0.12 S Nitrofurantoin Islt [place] <=16 S Pip+Tazo Islt [place]ST[place] <=4 S Tobramycin Islt [place] <=1 S TMP SMX Islt [place]ST[place] <=[address] [facility] Comment on above: Performed By: #### M 100.2200, L400.0001 #### [facility] [address] [place], [place], [address] Urgent Care Visit Reporton 1 Urgent Care Visit Report [facility] [address], [address] [place] [address] OFFICE VISIT Date of Service: 04/23/24 MR#: [id number] Acct: [id number] Name: NAVYA FRANCES Rep #: [id number] : 1960 Provider: [facility] Self Schedule Age/Sex: 64/F Location: [facility] [place] Status: Signed Intake Vital Signs 02/01/24 11:09 04/23/24 08:17 Height 5 ft 3.5 in 5 ft 3.5 in Weight: 126 lb 2 oz 124 lb BMI 21.9 21.6 BP 120/60 110/70 Position Sitting Pulse 69 66 Temp 98.0 F 97.6 F L Temp Source Temporal Temporal Pulse Oximetry (%) 95 97 Oxygen Delivery Method room air room air Intake Visit Reasons: CONCERN FOR UTI Accompanied by: Self Is patient in pain?: Yes Pain scale (1-10): 9 Allergies Penicillins Allergy (Mild, Verified 04/23/24 08:11) unknown Medications ???Medication ???Instructions ???Recorded ???Confirmed ???Type estradiol 0.025 mg/24 hr patch transdermal 09/05/22 04/23/24 History semiweekly transdermal patch sulfamethoxazole 800 1 tab PO BID 5 days #10 tabs 04/23/24 04/23/24 Rx mg-trimethoprim 160 mg tablet Have you fallen in the past year?: No PFSH Surgical History H/O: hysterectomy Social History household members: none Smoking Status: Never smoker alcohol intake: current alcohol intake frequency: 0-2 drinks per day HPI HPI Details: NAVYA FRANCES, is a 64 F who presents to the office today for a UTI. Patient states her symptoms have been going on for about 10 days and got worse last night. Patient symptoms include burning, pain, frequency, and hematuria. Patient states that the symptoms were insidious at onset with slow worsening over the past 10 days. She notes that the hematuria did begin overnight but is consistent with previous UTIs she has had in the past. Patient notes that last UTI occurred approximately 1 year ago. Patient denies treatment for this issue at this time. ROS Const Constitutional: No body ache, chills, fatigue or fever(s) Gastro GI: No abdominal pain, change in bowel habits, diarrhea or vomiting Genitourinary-Female: Positive for painful urination, urinary frequency, urinary urgency, blood in urine and suprapubic fullness Endo Endocrine: No fatigue Exam Const General: healthy appearing and no acute distress GI Palpation: soft, no guarding and nontender Other: No CVA tenderness bilatearlly Results POC Urinalysis Dip (Clinic) Office Urine Color Red Last Edit by Francheska Snow MA on 04/23/24 08:42 Office Urine Clarity Cloudy Last Edit by Francheska Snow MA on 04/23/24 08:42 Office Urine Glucose Negative Last Edit by Francheska Snow MA on 04/23/24 08:42 Office Urine Ketones Moderate (40+) Last Edit by Francheska Snow MA on 04/23/24 08:42 Off Ur Spec [place] <1.005 Last Edit by Francheska Snow MA on 04/23/24 08:42 Office Urine pH 5.0 Last Edit by Francheska Snow MA on 04/23/24 08:42 Office Urine Bilirubin Moderate (2+) Last Edit by Francheska Snow MA on 04/23/24 08:42 Office Urine Urobilinogen 1 mg/dL Last Edit by Francheska Snow MA on 04/23/24 08:42 Office Urine Blood Large Last Edit by Francheska Snow MA on 04/23/24 08:42 Office Urine Blood Hemolyzed Large Last Edit by Francheska Snow MA on 04/23/24 08:42 Office Urine Protein 2+ Last Edit by Francheska Snow MA on 04/23/24 08:42 Office Urine Nitrate Last Edit by Francheska Snow MA on 04/23/24 08:42 Off Ur Leukocytes Positive Last Edit by Francheska Snow MA on 04/23/24 08:42 Coding Level of Care Code Established Pt Off vis,est,level 3 Patient Type Established Medical Decision Making Moderate Complexity Diagnoses Gross hematuria R31.0 Hematuria type: gross Assessment and Plan Assessment and Plan (1) Hematuria: Status: Acute Qualifiers: Hematuria type: gross Qualified Code(s): R31.0 - Gross hematuria Plan: Treat as below due to history of UTI with similar symptom profile. Will check culture and sensitivity as well as UA and have patient f/u next week for results to determine if change in t reatment approach warranted. Due to gross hematuria on inspection of the urine if minimal to no improvement patient should f/u with PCP for further workup of this issue or with urology for evaluation. Patient voiced understanding and agreement with plan. Orders: Orders POC Urinalysis Dip (Clinic) Today N39.0 - Urinary tract infection, site not specified Medications: New sulfamethoxazole-trime thoprim 800-160 mg 1 TAB PO BID 5 days 10 tabs 0RF R31.9 - Hematuria, unspecified Clinical Quality Measures Falls Risk Screening/Assistive Devices Have you fallen in the past year?: No 04/23/24 0849 Date Jacob ESTRADA (more content not included)... Normal [facility] Urinalysis, Completeon 04-23 RBC > 100 SEEN Normal 0-[address] [facility] Comment on above: Order Comment: COLOR OF URINE MAY AFFECT DIPSTICK RESULTS. PROFESSOR CRIMINAL JUSTICE TO SPECIFY Performed By: #### M 100.2200, L400.0001 #### [facility] [address] [place], [address] WBC >100 SEEN Normal 0-[address] [facility] Comment on above: Order Comment: COLOR OF URINE MAY AFFECT DIPSTICK RESULTS. PROFESSOR CRIMINAL JUSTICE TO SPECIFY Performed By: #### M 100.2200, L400.0001 #### [facility] [address] [place], [address] BACTERIA 0 SEEN Normal None Seen [facility] Comment on above: Order Comment: COLOR OF URINE MAY AFFECT DIPSTICK RESULTS. PROFESSOR CRIMINAL JUSTICE TO SPECIFY Performed By: #### M 100.2200, L400.0001 #### [facility] [address] [place], [address] EPI,SQUAMOUS 0 SEEN Normal 5-[address] [facility] Comment on above: Order Comment: COLOR OF URINE MAY AFFECT DIPSTICK RESULTS. PROFESSOR CRIMINAL JUSTICE TO SPECIFY Performed By: #### M 100.2200, L400.0001 #### [facility] [address] [place], [address] Mucus Ql (Urine sed) 0 SEEN Normal [facility] Comment on above: Order Comment: COLOR OF URINE MAY AFFECT DIPSTICK RESULTS. PROFESSOR CRIMINAL JUSTICE TO SPECIFY Performed By: #### M 100.2200, L400.0001 #### [facility] [address] [place], [address] OV 03-08-2024 CNOV Office Visit (OBGYWM ) NAVYA FRANCES ([id number]) 1960 F Date Time Provider Department 03/08/24 2:20 PM LAITH MCCLOUD OBGYWM During your visit today, we recorded the following information about you: Blood pressure Weight Height 106/64 56.2 kg 1.6 m Laith Mccloud MD 03/08/2024 2:40 PM Signed Navya is a 64 year old who presents for an annual gynecologic exam without complaints. Doing well on estrogen and desires to continue. Uses detrol only prn trips Postmenopausal: yes HRT use: yes. Last Pap: 06/02/2003 normal HPV: N/A History of abnormal pap: No Last mammogram: 2022 normal History of abnormal mammogram: No Sexually active: Yes OB History T2 L2 SAB0 IAB0 Ectopic0 Multiple0 Live Births0 Cobbler Sole History LMP: Hysterectomy Age at Menarche: Age at First : Age at Menopause: Cobbler Sole History Comments: Sexual Activity: Yes; Male; hyst Contraception: Surgical PAST MEDICAL HISTORY No date: Goiter, unspecified No date: Other extrapyramidal disease and abnormal movement disorder Comment: restless legsPAST SURGICAL HISTORY 1999: PAST SURGICAL HISTORY OF Comment: right femoral henioraphy 2004: VAGINAL HYSTERECTOMY UTERUS 250 GM/< Comment: Hysterectomy, vaginal FAMILY HISTORY Problem Relation Age of Onset Osteoporosis Mother SOCIAL HISTORY Social History Tobacco Use Smoking status: Never Smokeless tobacco: Never Vaping Use Vaping status: Never Used Substance Use Topics Alcohol use: Yes Comment: occasional Drug use: No REVIEW OF SYSTEMS Abdomen: No abdominal pain, nausea, vomiting, diarrhea, or constipation. No bloating, early satiety, indigestion, or increased flatulence. Bladder: No dysuria, gross hematuria, urinary frequency, urinary urgency, or incontinence Breast: No breast lumps, nipple d/c, overlying skin changes, redness or skin retraction Allergies and current medication updated:Yes EXAM: BP 106/64 Ht 5' 3 (1.60m) Wt 124 lb (56.2kg) BMI 21.97 kg/(m2). GENERAL: pleasant, female in no apparent [...] external genitalia normal, normal Bartholin's glands, urethra, [place]'s glands, no vulvar lesions, good vaginal support, physiologic discharge present, normal appearing perineal body and perianal region, cervix surgically absent BIMANUAL: no adnexal masses, non-tender, and uterus surgically absent RECTOVAGINAL: deferred. NEURO: alert and oriented x3,exam grossly non-focal EXTREMITIES: normal ASSESSMENT/PLAN: 1) Health maintenance: Pap/HPV screening no longer needed Mammogram ordered 2) Follow up one year or sooner as needed Laith Mccloud MD Allergies As of Date: 03/08/2024 Noted Allergy Reaction AZITHROMYCIN 10/08/2006 6 - Diarrhea Comments: Has taken recently with no reaction CEPHALEXIN 10/08/2006 8 - GI Upset Comments: nausea Date Reviewed: 03/08/2024 Reviewed by: Laith Mccloud MD - Fully Assessed Reason for Visit: Yearly Exam [187] Primary Visit Diagnosis:Encounter for gynecological examination (general) (routine) without abnormal findings [Z01.419] Order(s):estradiol 0.025 mg/24 hrAPPLY 1 PATCH EVERY THURSDAY AND THURSDAY DIRECTEDDisp: 24 PatchRfl: 3 Prescriptions as of 03/08/2024 - estradiol 0.025 mg/24 hr APPLY 1 PATCH EVERY THURSDAY AND THURSDAY DIRECTED - tolterodine ER (DETROL LA) 2 mg 24 hr capsule Take 1 capsule by mouth once daily. - IBUPROFEN 200 MG TAB Take 1-2 tablet's) every four(4) to six(6) hours as needed for pain. 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] GOITER NOS [E04.9] Pain in thoracic spine [M54.6] 12/07/2007 07/15/2016 CERVICAL DISC DEGEN [M50.30] 12/07/2007 Dysuria [R30.0] 01/11/2008 07/15/2016 Sleep disturbance, unspecified [G47.9] 04/14/2008 07/15/2016 Overweight [E66.3] 04/14/2008 12/16/2011 Routine General Medical Examination at [facility]*04/18/2008 09/27/2014 Urge incontinence [N39.41] 12/16/2011 Symptomatic menopausal or female climacteric st*10/14/2012 07/15/2016 Prescriptions ordered this encounter Disp Refills Start End ESTRADIOL 0.025 MG/24 HR SEMIWEEKLY * 24 P* 3 03/08/2024 Sig: APPLY 1 PATCH EVERY THURSDAY AND THURSDAY DIRECTED Medications Discontinued During This Encounter Prescriptions - estradiol 0.025 mg/24 hr (Discontinued) APPLY 1 PATCH EVERY THURSDAY AND THURSDAY DIRECTED Disposition: Ret (more content not included)... [facility] Visit Reporton 0 02-01-2024 Urgent Care Visit Report [facility] [address], [address] [place] [id number] OFFICE VISIT Date of Service: 02/01/24 MR#: [id number] Acct: [id number] Name: NAVYA FRANCES Rep #: [id number] : 1960 Provider: NATALIE Hendricks Age/Sex: 64/F Location: [facility] [place] Status: Signed Intake Vital Signs 09/30/23 08:06 02/01/24 11:09 Height 5 ft 4 in 5 ft 3.5 in Weight: 125 lb 8 oz 126 lb 2 oz BMI 21.5 21.9 BP 120/60 Position Sitting Pulse 69 Temp 98.0 F Temp Source Temporal Pulse Oximetry (%) 95 Oxygen Delivery Method room air Intake Visit Reasons: POISON PARAMJIT Allergies Penicillins Allergy (Mild, Verified 02/01/24 11:10) unknown Medications ???Medication ???Instructions ???Recorded ???Confirmed ???Type estradiol 0.025 mg/24 hr patch transdermal 09/05/22 02/01/24 History semiweekly transdermal patch prednisone 10 mg tablet 10 mg PO DAILY #18 tabs 02/01/24 02/01/24 Rx Have you fallen in the past year?: No PFSH Surgical History H/O: hysterectomy Social History household members: none Smoking Status: Never smoker alcohol intake: current alcohol intake frequency: 0-2 drinks per day HPI HPI Details: NAVYA FRANCES, is a 64 F who presents to the office today for initial evaluation status post poison paramjit exposure (likely mixed in mulch) in flower beds approximately week ago. Patient states she has used multiple [id number] topical corticosteroid and calamine lotion without relief of symptoms. She notes pruritic rash to BLE with excoriations. No complaints of constricted/pruritic airway or chest pain/shortness of breath/wheeze/dyspnea on exertion. No other associated symptoms and no other alleviating/aggravatin g factors. ROS Const Constitutional: No other (As above) Exam Const General: cooperative, healthy appearing and no acute distress Nutritional Appearance: average body habitus Orientation: alert, awake and oriented x3 HENMT Head: normal to inspection Ears: hearing grossly normal bilaterally, external ears normal Nose: external nose normal Face and sinus: normal facial exam, and face symmetric Throat: posterior oropharynx normal Eyes General: appearance normal, both eyes and all related structures Neck Neck: normal visual inspection, full ROM, no lymphadenopathy, no meningeal signs and supple Neck mass: No Thyroid: thyroid normal Lymphatic: no lymphadenopathy noted Chest Chest palpation inspection: normal inspection of the chest Resp Effort Inspection: normal respiratory effort and able to speak in complete sentences Cardio Rate: regular rate Pulses: radial pulses present GI Inspection: normal to inspection Skin General: no rashes or lesions noted Other: Except clustered vesicular rash to BLE (left more so than right) Neuro General: patient alert, patient awake and patient oriented x3 Cognition: normal cognition Speech: speech normal Extrem General: normal to inspection Psych Appearance: grossly normal Mental Status: mental status grossly normal Mood: congruent mood Affect: normal affect Speech and Movement: speech and movement normal Attitude: cooperative Diagnoses Contact dermatitis due to poison paramjit L23.7 Assessment and Plan Assessment and Plan (1) Contact dermatitis due to poison paramjit: Status: Acute Plan: Prednisone as prescribed today. Supportive measures as instructed today. Follow-up with PCP in 3 to 5 days should symptoms not improve, ED sooner should symptoms worsen or any other concerns develop. Patient states acknowledging understanding all the above Coding Level of Care Code Off vis,est,level 3 Assessment and Plan Assessment and Plan Medications: New prednisone 3 tablets daily x3 days, then 2 tablets daily x3 days, then 1 tablet daily x3 days 10 mg PO DAILY 18 tabs 0RF Clinical Quality Measures Falls Risk Screening/Assistive Devices Have you fallen in the past year?: No 02/01/24 1139 Date Maldonado Rick Signature: Date (if applicable) CC: Normal [facility] Basic Metabolic Profile (BMP )on 01-26-2024 BUN/CRE 19.5 RATIO Normal 10-[address] [facility] Comment on above: Order Comment: Order Date: 01/26/24 Order Info: [id number] - BMP Order Info: [id number] - LIPID Performed By: #### L 500.2500, L500.4100 #### [facility] [address] [place], [address] CA,Total 9.2 mg/dL Normal 8.5-10.[address] [facility] Comment on above: Order Comment: Order Date: 01/26/24 Order Info: [id number] - BMP Order Info: [id number] - LIPID Performed By: #### L 500.2500, L500.4100 #### [facility] [address] [place], [address] Chloride [Moles/Vol] 106 mmol/L Normal 98-107 [facility] Comment on above: Order Comment: Order Date: 01/26/24 Order Info: [id number] - BMP Order Info: [id number] - LIPID Performed By: #### L 500.2500, L500.4100 #### [facility] [address] [place], [address] CO2 [Moles/Vol] 23.0 mmol/L Normal 21.0-32.[address] [facility] Comment on above: Order Comment: Order Date: 01/26/24 Order Info: [id number] - BMP Order Info: [id number] - LIPID Performed By: #### L 500.2500, L500.4100 #### [facility] [address] [place], [address] Creatinine [Mass/Vol] 0.72 mg/dL Normal 0.55-1.02 [facility] Comment on above: Order Comment: Order Date: 01/26/24 Order Info: [id number] - BMP Order Info: [id number] - LIPID Result Comment: The validity of the calculated GFR GFRAA in patients over 70 years has not been determined. Clinical correlation is essential. Performed By: #### L 500.2500, L500.4100 #### [facility] [address] [place], [address] EST GFR - AA 105 mL/min Normal >[address] [facility] Comment on above: Order Comment: Order Date: 01/26/24 Order Info: [id number] - BMP Order Info: [id number] - LIPID Result Comment: Afri can Tristanian GFR Calc Performed By: #### L 500.2500, L500.4100 #### [facility] [address] [place], [address] GAP 7 Normal 5-[address] [facility] Comment on above: Order Comment: Order Date: 01/26/24 Order Info: [id number] - BMP Order Info: [id number] - LIPID Performed By: #### L 500.2500, L500.4100 #### [facility] [address] [place], [address] GFR/1.73 sq M.predicted among non-blacks MDRD (S/P/Bld) [Vol rate/Area] 87 mL/min/{1.73_m2} Normal >[address] [facility] Comment on above: Order Comment: Order Date: 01/26/24 Order Info: [id number] - [facility] Order Info: [id number] - LIPID Result Comment: Non- GFR Calc Performed By: #### L 500.2500, L500.4100 #### [facility] [address] [place], [address] Glucose [Mass/Vol] 91 mg/dL Normal 74-106 [facility] Comment on above: Order Comment: Order Date: 01/26/24 Order Info: [id number] - [facility] Order Info: [id number] - LIPID Performed By: #### L 500.2500, L500.4100 #### [facility] [address] [place], [address] Potassium [Moles/Vol] 4.6 mmol/L Normal 3.5-5.1 [facility] Comment on above: Order Comment: Order Date: 01/26/24 Order Info: [id number] - [facility] Order Info: [id number] - LIPID Result Comment: Mode rate Hemolysis, Result may be falsely increased. Performed By: #### L 500.2500, L500.4100 #### [facility] [address] [place], [address] Sodium [Moles/Vol] 136 mmol/L Normal 136-145 [facility] Comment on above: Order Comment: Order Date: 01/26/24 Order Info: [id number] - [facility] Order Info: [id number] - LIPID Performed By: #### L 500.2500, L500.4100 #### [facility] [address] [place], [address] Urea nitrogen [Mass/Vol] 14 mg/dL Normal 7-[address] [facility] Comment on above: Order Comment: Order Date: 01/26/24 Order Info: [id number] - BMP Order Info: [id number] - LIPID Performed By: #### L 500.2500, L500.4100 #### [facility] [address] [place], [address] Lipid Profileon 01-26-2024 Cholesterol [Mass/Vol] 171 mg/dL Normal 200 [facility] Comment on above: Order Comment: Order Date: 01/26/24 Order Info: [id number] - BMP Order Info: [id number] - LIPID Result Comment: <200 mg/dL Desirable 200-240 mg/dL Borderline >240 mg/dL High Risk Performed By: #### L 500.2500, L500.4100 #### [facility] [address] [place], [address] Cholesterol in HDL [Mass/Vol] 98 mg/dL Normal [facility] Comment on above: Order Comment: Order Date: 01/26/24 Order Info: 06- - [facility] Order Info: [id number] - LIPID Result Comment: The drugs N-Acetylcysteine and Metamizole may falsely depress this assay. Reference Range HDL <40 mg/dL Low HDL Cholesterol HDL >or= 60 mg/dL High HDL Cholesterol Performed By: #### L 500.2500, L500.4100 #### [facility] [address] [place], [address] Cholesterol in LDL [Mass/Vol] 61 mg/dL Normal 0-[address] [facility] Comment on above: Order Comment: Order Date: 01/26/24 Order Info: [id number]- - BMP Order Info: [id number] - LIPID Performed By: #### L 500.2500, L500.4100 #### [facility] [address] [place], [address] Cholesterol in VLDL [Mass/Vol] 12 mg/dL Normal 5-[address] [facility] Comment on above: Order Comment: Order Date: 01/26/24 Order Info: [id number] - BMP Order Info: [id number] - LIPID Performed By: #### L 500.2500, L500.4100 #### [facility] [address] [place], [place], [address] Triglyceride [Mass/Vol] 61 mg/dL Normal [facility] Comment on above: Order Comment: Order Date: 01/26/24 Order Info: [id number] - BMP Order Info: [id number] - LIPID Result Comment: The drugs N-Acetylcysteine and Metamizole may falsely depress this assay. Serum Triglycerides Reference Interval Normal <150 mg/dL Borderline high 150 - 199 mg/dL High 200 - 499 mg/dL Very High > or = 500 mg/dL Performed By: #### L 500.2500, L500.4108 #### [facility] [address] [place], [place], [address] [facility] 04-21-2023 [facility] Telephone (OBGYWM) NAVYA FRANCES ([id number]) 1960 F Date Time Provider Department 04/21/23 LAITH MCCLOUD OBGYWM During your visit today, we recorded the following information about you: Carla Garcia RN 04/21/2023 8:07 AM Signed Patient calling c/o UTI symptoms. Having dysuria, urinary frequency, hematuria. She does not want to go to urgent care unless RR feels she needs to. Order pending if appropriate. Patient is extremely uncomfortable though. Last annual with RR 03/03/23. Please advise. Emma Stinson RN, RN 04/21/2023 9:58 AM Signed Patient called back. Declines wanting to leave a urine sample at the lab since she is not able to see RR today. Plans to go to her other doctor. Emma Dubon RN, RN 04/21/2023 9:58 AM Signed Addended by: EMMA FERRARA RN on: 04/21/2023 09:58 AM Modules accepted: Orders Allergies As of Date: 04/21/2023 Noted Allergy Reaction AZITHROMYCIN 10/08/2006 6 - Diarrhea Comments: Has taken recently with no reaction CEPHALEXIN 10/08/2006 8 - GI Upset Comments: nausea Date Reviewed: 03/03/2023 Reviewed by: Laith Mccloud MD - Fully Assessed Reason for Visit: UTI [116] Primary Visit Diagnosis:Hematuria, unspecified type [R31.9] Other Visit Diagnoses:Urinary frequency [R35.0] Dysuria [R30.0] Prescriptions as of 04/21/2023 - estradiol 0.025 mg/24 hr APPLY 1 PATCH EVERY THURSDAY AND THURSDAY DIRECTED - IBUPROFEN 200 MG TAB Take 1-2 tablet's) every four(4) to six(6) hours as needed for pain. 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] GOITER NOS [E04.9] Pain in thoracic spine [M54.6] 12/07/2007 07/15/2016 CERVICAL DISC DEGEN [M50.30] 12/07/2007 Dysuria [R30.0] 01/11/2008 07/15/2016 Sleep disturbance, unspecified [G47.9] 04/14/2008 07/15/2016 Overweight [E66.3] 04/14/2008 12/16/2011 Routine General Medical Examination at [facility]*04/18/2008 09/27/2014 Urge incontinence [N39.41] 12/16/2011 Symptomatic menopausal or female climacteric st*10/14/2012 07/15/2016 Encounter Status:Closed by EMMA FERRARA RN on 04/21/23 [facility] Culture, urineOrdered By: Marycruz Pires on 04-21-2023 Bacteria identified Cx Nom (U) Presumptive E. coli [facility] SCREENING W [facility]on 04-03 [facility] * * *Final Report* * * DATE OF EXAM: Apr 03 2023 7:26AM WRW [id number] - [facility] SCREENING W MAURICE / PROCEDURE REASON: multiple diagnoses * * * * Physician Interpretation * * * * RESULT: #[id number] - [facility] SCREENING W MAURICE BILATERAL DIGITAL SCREENING MAMMOGRAM TOMOSYNTHESIS WITH CAD: 04/03/2023 HISTORY: Multiple Diagnoses / Screening Mammogram-Patient reports NO symptoms. /priors available for comparison. RESULT: TECHNIQUE: The study was acquired using full field digital technology and interpreted from soft copy. Digital Breast Tomosynthesis (DBT) images were obtained and used to assist in the interpretation of this examination. Current study was also evaluated with a Computer Aided Detection (CAD). Comparison is made to exams dated: 02/06/2021 mammogram, 09/09/2018 mammogram, 07/29/2016 mammogram - [facility], and 07/15/2016 mammogram - [facility]. The breasts are extremely dense, which lowers the sensitivity of mammography. No significant masses, calcifications, or other findings are seen in either breast. There has been no significant interval change. IMPRESSION: NEGATIVE There is no mammographic evidence of malignancy. A 1 year screening mammogram is recommended. Phill Goodson M.D. 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 With representation from Breast Imaging, Internal Medicine, Women's Health, Family Medicine, and Medical/Surgical Oncology, the [facility] has carefully reviewed the data and reached the following consensus: 1) All women should engage in shared decision-making with their providers to decide when to start and how often to screen; 2) All women should have the opportunity to start screening mammography at age 40; 3) For women ages 45-55, we recommend annual screening mammograms; 4) For women ages 55 and over, we support both the transition from an annual to a biennial interval if this aligns more with patient's values and preferences, or continuation with annual screening; 5) All women should discuss with their providers when to stop screening mammograms. Ratings Analyst: Rayne Transcribe Date/Time: Apr 03 2023 7:01A Dictated by: PHILL GOODSON MD This examination was interpreted and the report reviewed and electronically signed by: PHILL GOODSON MD on Apr 03 2023 11:40AM EST [id number] Normal [facility] Basophil percentageOrdered B y: Blanca Torres on 01-08-2023 Chloride [Moles/Vol] 105 mmol/L 98-107 [facility] Cholesterol [Mass/Vol] 180 mg/dL <200 [facility] Comment on above: <200 mg/dL Desirable 200-240 mg/dL Borderline >240 mg/dL High Risk Glucose [Mass/Vol] 85 mg/dL 74-106 [facility] Potassium [Moles/Vol] 4.1 mmol/L 3.5-5.1 [facility] Sodium [Moles/Vol] 139 mmol/L 136-145 [facility] Triglyceride [Mass/Vol] 36 mg/dL <[address] [facility] Comment on above: The drugs N-Acetylcy steine and Metamizole may falsely depress this assay.Serum Triglycerides Reference Interval Normal <150 mg/dL Borderline high 150 - 199 mg/dL High 200 - 499 mg/dL Very High > or = 500 mg/dL WBC (Bld) [#/Vol] 5.2 10*3/uL 4.4-11.0 [facility] Blood erythrocytes count (nu mber/volume)Ordered By: Blanca Torres on 01-08-2023 RBC (Bld) [#/Vol] 4.63 10*6/uL 4.2-5.4 [facility] Blood hemoglobin measurement (mass/volume)Ordered By: Blanca Torres on 01-08-2023 Hemoglobin (Bld) [Mass/Vol] 14.4 g/dL 12.0-15.[address] [facility] Blood platelet mean volumeOr dered By: Blanca Torres on 06-29-2023 Platelet mean volume (Bld) [Entitic vol] 9.5 fL 6.2-12.[address] [facility] Determination of erythrocyte mean corpuscular volume (MCV)Ordered By: Blanca Torres on 01-08-2023 MCV (RBC) [Entitic vol] 95.2 fL 81-[address] [facility] Hematocrit Auto (Bld) [Volum e fraction]Ordered By: Blanca Torres on 01-08-2023 Hematocrit (Bld) [Volume fraction] 44.1 % 37-[address] [facility] - Chemistry and C hemistry - challengeOrdered By: Blanca Torres on 01-08-2023 CO2 [Moles/Vol] 29.0 mmol/L 21.0-32.[address] [facility] Urea nitrogen/Creatinine [Mass ratio] 17.9 mg/mg 10-[address] [facility] - Hematology and Cell countsOrdered By: Blanca Torres on 01-08-2023 Erythrocyte distribution width (RBC) [Entitic vol] 41.1 fL 35.1-43.[address] [facility] Erythrocyte distribution width (RBC) [Ratio] 11.9 % 11.6-14.[address] [facility] MCH (RBC) [Entitic mass] 31.1 pg 27.0-32.[address] [facility] MCHC Auto (RBC) [Mass/Vol]Or dered By: Blanca Torres on 01-08-2023 MCHC (RBC) [Mass/Vol] 32.7 g/dL 32-36 [facility] No Panel InformationOrdered By: Blanca Torres on 01-08-2023 Estimated GFR (MDRD) Amer 95 mL/min >[address] [facility] Comment on above: GFR Calc Estimated GFR (MDRD) Non-Af Amer 79 mL/min >[address] [facility] Comment on above: Non- GFR Calc Thyroid Stimulating Hormone (TSH) 1.49 uIU/mL 0.358-3.[address] [facility] Platelets bldOrdered By: Paula Torres on 01-08-2023 Platelets (Bld) [#/Vol] 281 10*3/uL 150-[address] [facility] Serum or plasma calcium ashley urement (mass/volume)Ordered By: Blanca Torres on 01-08-2023 Calcium [Mass/Vol] 9.1 mg/dL 8.5-10.1 [facility] Serum or plasma cholesterol in HDL measurement (mass/volume)Ordered By: Blanca Torres on 01-08-2023 Cholesterol in HDL [Mass/Vol] 108 mg/dL >[address] [facility] Comment on above: The drugs N-Acetylcy steine and Metamizole may falsely depress this assay. Reference Range HDL <40 mg/dL Low HDL Cholesterol HDL >or= 60 mg/dL High HDL Cholesterol Serum or plasma cholesterol in VLDL measurement (mass/volume)Ordered By: Blanca Torres on 01-08-2023 Cholesterol in VLDL [Mass/Vol] 7 mg/dL 5-[address] [facility] Serum or plasma creatinine m easurement (mass/volume)Ordered By: Blanca Torres on 01-08-2023 Creatinine [Mass/Vol] 0.78 mg/dL 0.55-1.02 [facility] Comment on above: The validity of the calculated GFR & GFRAA in patients over 70 years has not been determined. Clinical correlation is essential. Serum or plasma low density lipoprotein (LDL) cholesterol measurement (mass/volume)Ordered By: Blanca Torres on 01-08-2023 Cholesterol in LDL [Mass/Vol] 65 mg/dL 0-[address] [facility] Serum or plasma urea nitroge n measurement (mass/volume)Ordered By: Blancamaicol Torres on 01-08-2023 Urea nitrogen [Mass/Vol] 14 mg/dL 7-[address] [facility] Thin prep Papanicolaou smear with manual screeningOrdered By: Blanca Torres on 01-08-2023 Thin prep Papanicolaou smear with manual screening 5 5-[address] [facility] Basophil percentageon 2021 Chloride [Moles/Vol] 104 mmol/L 98-107 [facility] Work Phone: Cholesterol [Mass/Vol] 191 mg/dL <200 [facility] Work Phone: Comment on above: <200 mg/dL Desirable 200-240 mg/dL Borderline >240 mg/dL High Risk Glucose [Mass/Vol] 95 mg/dL 74-106 [facility] Work Phone: Potassium [Moles/Vol] 4.0 mmol/L 3.5-5.1 [facility] Work Phone: Sodium [Moles/Vol] 138 mmol/L 136-145 [facility] Work Phone: Triglyceride [Mass/Vol] 69 mg/dL <[address] [facility] Work Phone: Comment on above: The drugs N-Acetylcy steine and Metamizole may falsely depress this assay.Serum Triglycerides Reference Interval Normal <150 mg/dL Borderline high 150 - 199 mg/dL High 200 - 499 mg/dL Very High > or = 500 mg/dL Laboratory - Chemistry and C hemistry - challengeon 02-20-2022 CO2 [Moles/Vol] 28.0 mmol/L 21.0-32.[address] [facility] Work Phone: Urea nitrogen/Creatinine [Mass ratio] 15.4 mg/mg 10-[address] [facility] Work Phone: No Panel Informationon 02-20 Estimated GFR (MDRD) Amer 96 mL/min >[address] [facility] Work Phone: Comment on above: GFR Calc Estimated GFR (MDRD) Non-Af Amer 79 mL/min >[address] [facility] Work Phone: Comment on above: Non- GFR Calc Serum or plasma calcium ashley urement (mass/volume)on 02-20-2022 Calcium [Mass/Vol] 9.2 mg/dL 8.5-10.1 [facility] Work Phone: Serum or plasma cholesterol in HDL measurement (mass/volume)on 02-20-2022 Cholesterol in HDL [Mass/Vol] 105 mg/dL >[address] [facility] Work Phone: Comment on above: The drugs N-Acetylcy steine and Metamizole may falsely depress this assay. Reference Range HDL <40 mg/dL Low HDL Cholesterol HDL >or= 60 mg/dL High HDL Cholesterol Serum or plasma cholesterol in VLDL measurement (mass/volume)on 02-20-2022 Cholesterol in VLDL [Mass/Vol] 14 mg/dL 5-[address] [facility] Work Phone: Serum or plasma creatinine m easurement (mass/volume)on 02-20-2022 Creatinine [Mass/Vol] 0.78 mg/dL 0.55-1.02 [facility] Work Phone: Comment on above: The validity of the calculated GFR & GFRAA in patients over 70 years has not been determined. Clinical correlation is essential. Serum or plasma low density lipoprotein (LDL) cholesterol measurement (mass/volume)on 02-20-2022 Cholesterol in LDL [Mass/Vol] 72 mg/dL 0-[address] [facility] Work Phone: Serum or plasma urea nitroge n measurement (mass/volume)on 02-20-2022 Urea nitrogen [Mass/Vol] 12 mg/dL 7-[address] [facility] Work Phone: Thin prep Papanicolaou smear with manual screeningon 02-20-2022 Thin prep Papanicolaou smear with manual screening 6 5-[address] [facility] Work Phone: Vital Signs Date Time Vital Sign Value Performing Clinician Faci lity 11-11-2024 13:23-0400 Diastolic blood pressure 85 mm[Hg] Dr. Ajith Chung MD Work Phone: [facility] 11-11-2024 13:23-0400 Heart rate 65 /min Dr. Ajith Chung MD Work Phone: [facility] 11-11-2024 13:23-0400 Respiratory rate 18 /min Dr. Ajith Chung MD Work Phone: [facility] 11-11-2024 13:23-0400 SaO2% (BldA) [Mass fraction] 95 % Dr. Ajith Chung MD Work Phone: [facility] 11-11-2024 13:23-0400 Systolic blood pressure 126 mm[Hg] Dr. Ajith Chung MD Work Phone: [facility] 08-19-2024 07:57-0500 Body height 161.[address] Ajith Chung MD Work Phone: [facility] 08-19-2024 07:57-0500 Body mass index (BMI) [Ratio] 22.1 kg/m2 Dr. Ajith Chung MD Work Phone: [facility] 08-19-2024 07:57-0500 Body temperature 98 [degF] Dr. Ajith Chung MD Work Phone: [facility] 08-19-2024 07:57-0500 Body weight 57.[address] Ajith hCung MD Work Phone: [facility] 08-19-2024 07:57-0500 Diastolic blood pressure 84 mm[Hg] Dr. Ajith Chung MD Work Phone: [facility] 08-19-2024 07:57-0500 Heart rate 55 /min Dr. Ajith Chung MD Work Phone: [facility] 08-19-2024 07:57-0500 SaO2% (BldA) [Mass fraction] 99 % Dr. Ajith Chung MD Work Phone: [facility] 08-19-2024 07:57-0500 Systolic blood pressure 122 mm[Hg] Dr. Ajith Chung MD Work Phone: [facility] 03-08-2024 14:23-0400 Body height 160 cm Laith Mccloud MD Work Phone: [facility] 03-08-2024 14:23-0400 Body mass index (BMI) [Ratio] 21.97 kg/m2 Laith Mccloud MD Work Phone: [facility] 03-08-2024 14:23-0400 Body weight 56.25 kg Laith Mccloud MD Work Phone: [facility] 03-08-2024 14:23-0400 Diastolic blood pressure 64 mm[Hg] Laith Mccloud MD Work Phone: [facility] 08-27-2024 14:23-0400 Systolic blood pressure 106 mm[Hg] Laith Mccloud MD Work Phone: [facility] 03-03-2023 08:46-0400 Body height 160 cm Laith Mccloud MD Work Phone: [facility] 03-03-2023 08:46-0400 Body weight 57.15 kg Laith Mccloud MD Work Phone: [facility] 03-03-2023 08:46-0400 Diastolic blood pressure 70 mm[Hg] Laith Mccloud MD Work Phone: [facility] 03-03-2023 08:46-0400 Systolic blood pressure 116 mm[Hg] Laith Mccloud MD Work Phone: [facility] 02-07-2022 09:00-0400 Body height 160 cm Laith Mccloud MD Work Phone: [facility] 02-07-2022 09:00-0400 Body weight 57.15 kg Laith Mccloud MD Work Phone: [facility] 02-07-2022 09:00-0400 Diastolic blood pressure 76 mm[Hg] Laith Mccloud MD Work Phone: [facility] 02-07-2022 09:00-0400 Systolic blood pressure 118 mm[Hg] Laith Mccloud MD Work Phone: [facility] Encounters Encounter Date Encounter Type Care Provider Facility Start: 12-14-2024 ambulatory Samm Wallis Facility:[facility] Start: 11-23-2024 End: 11-23-[address] Ajith Chung MD Work Phone: [facility] Work Phone: Start: 11-23-2024 End: 11-23-[address] Samm Wallis MD -Ultrasound [facility] Work Phone: Start: 11-23-2024 End: 11-23-2024 ambulatory Samm Wallis Facility:[facility] Start: 11-11-2024 End: 11-11-[address] Samm Wallis MD -[facility] Work Phone: Start: 11-11-2024 End: 11-11-[address] Ajith Chung MD Work Phone: [facility] Work Phone: Start: 11-11-2024 End: 11-11-2024 Patient encounter procedure Omar Shi DO -Nuclear Medicine, [facility] Work Phone: Start: 11-11-2024 End: 11-11-2024 ambulatory Ajith Chung Facility:[facility] Start: 10-19-2024 End: 10-19-2024 Patient encounter procedure Omar Shi DO -[facility] Work Phone: Start: 10-19-2024 End: 10-19-2024 ambulatory Ajith Chung Facility:[facility] Start: 08-19-2024 End: 08-19-2024 Patient encounter procedure Kojo Naidu [facility] -[facility] Work Phone: Start: 08-19-2024 End: 08-19-2024 ambulatory Toni Juliet Facility:[facility] Start: 05-21-2024 End: 05-21-2024 ambulatory Ajith Chung Facility:[facility] Start: 05-19-2024 End: 05-19-2024 ambulatory Ajith Chung Facility:[facility] Start: 05-11-2024 End: 05-11-2024 ambulatory Ajith Chung Facility:[facility] Start: 04-23-2024 End: 04-23-2024 ambulatory Jacob Krause Facility:[facility] Start: 04-23-2024 End: 04-23-2024 ambulatory [facility] Facility:[facility] Start: 03-08-2024 End: 03-08-2024 ambulatory LAITH MCCLOUD Facility:[facility] Start: 03-08-2024 End: 03-08-2024 Patient encounter procedure Laith Mccloud MD Work Phone: OB/Gynecology Comment on above: Encounter for gyneco logical examination (general) (routine) without abnormal findings (Primary Dx) Start: 03-08-2024 End: 03-08-2024 Patient encounter status Laith Mccloud MD Work Phone: [facility] Start: 02-01-2024 End: 02-01-2024 ambulatory Maldonado ESTRADA Facility:[facility] Start: 01-26-2024 End: 01-26-2024 ambulatory Blanca Torres NEWS SPECIALIST Facility:[facility] Start: 08-31-2023 End: 08-31-[address] [facility] Work Phone: Start: 08-31-2023 End: 08-31-[address] [facility], [place] Work Phone: Start: 04-21-2023 Telephone encounter Laith Mccloud MD Work Phone: OB/Gynecology Comment on above: UTI Start: 04-21-2023 End: 04-21-[address] [facility] Work Phone: Start: 04-21-2023 End: 04-21-[address] [facility]Laboratory, Spec[place] Work Phone: Start: 04-03-2023 End: 04-03-2023 ambulatory LAITH MCCLOUD Facility:[facility] Start: 04-03-2023 Encounter for gynecological examination (general) (routine) without abnormal findings LAITH MCCLOUD [facility] Start: 04-03-2023 End: 04-03-2023 Patient encounter status Screen [facility] Start: 04-03-2023 End: 04-03-2023 Subsequent hospital visit by physician Screen Mammo [facility] Mammogram Comment on above: Encounter for gyneco logical examination (general) (routine) without abnormal findings [Z01.419] Start: 03-03-2023 End: 03-03-2023 Patient encounter procedure Laith Mccloud MD Work Phone: OB/Gynecology Comment on above: Encounter for gyneco logical examination (general) (routine) without abnormal findings (Primary Dx); Encounter for screening mammogram for breast cancer Start: 03-03-2023 End: 03-03-2023 Patient encounter status Laith Mccloud MD Work Phone: [facility] Start: 01-08-2023 End: 01-08-2023 Patient encounter procedure [facility] Start: 03-10-2022 ambulatory Laith solano MD Work Phone: OB/Gynecology Comment on above: Frances Blood type Start: 02-20-2022 End: 02-20-2022 Patient encounter procedure [facility] Start: 02-07-2022 End: 02-07-2022 Patient encounter procedure Laith Mccloud MD Work Phone: OB/Gynecology Comment on above: Encounter for gyneco logical examination (general) (routine) without abnormal findings; Encounter for screening mammogram for breast cancer Start: 02-07-2022 End: 02-07-2022 Patient encounter status Laith Mccloud MD Work Phone: OB/Gynecology Start: 12-31-2021 Refill Laith solano MD Work Phone: OB/Gynecology Comment on above: Refill Request Start: 04-18-2008 End: 09-27-2014 Patient encounter status Laith Mccloud MD Work Phone: [facility] Procedures Date Procedure Procedure Detail Performing Clinician Start: 11-23-[address] Ajith Chung MD Work Phone: Start: 11-11-2024 Radionuclide gastric emptying study Dr. Ajith Chung MD Work Phone: Start: 08-31-2023 Plain x-ray of hand Start: 04-21-2023 Urine culture Start: 04-03-2023 Screening digital br east tomosynthesis bi Laith Mccloud MD Work Phone: Start: 02-06-2021 Mammography Laith ladd MD Work Phone: Start: 03-26-2015 Lipid 1996 panel - S lui or Plasma Laith Mccloud MD Work Phone: Start: 09-25-2011 Colonoscopy Laith ladd MD Work Phone: H/O: hysterectomy H/O: hysterectomy Plan of Treatment Date Care Activity Detail Author Start: 01-08-2033 Urine microalbumin profile DTaP,Tdap,Td Vaccine (3 - Td or Tdap) [facility] Start: 03-10-2025 End: 03-10-2025 Patient encounter procedure 03/10/2025 4:00 PM EDT Office Visit OB/Gynecology [address] [place], [place] [id number] Laith Mccloud MD [address] [place] [address] Annual OB/Gynecology Comment on above: Annual Start: 04-03-2024 Mammography [facility] Start: 04-03-2024 Screening for malign ant neoplasm of breast Mammogram Screening [facility] Start: 03-13-2024 Influenza vaccination Influenza Vacc ine (#1) [facility] Start: 01-31-2024 Advance Directive Discussion Advance Directive Discussion [facility] Start: 01-31-2024 Pneumococcal Vaccine : 65+ (1 of 1 - PCV) Pneumococcal Vaccine: 65+ (1 of 1 - PCV) [facility] Start: 01-31-2024 Screening for osteoporosis Bone Density Screening [facility] Start: 03-13-2023 Covid-19 Vaccine ( season) Covid-19 Vaccine ( season) [facility] Start: 03-13-2023 Influenza vaccination C [facility] Start: 01-18-2023 Urine microalbumin profile [facility] Start: 07-13-2022 DEPRESSION ASSESSMENT DEPRESSION ASS ESSMENT [facility] Start: 03-20-2022 COVID-19 VACCINE (5 - Moderna series) COVID-19 VACCINE (5 - Moderna series) [facility] Start: 03-13-2022 Influenza vaccination C [facility] Start: 02-06-2022 Mammography MAMMOGRAM [facility] Start: 09-24-2021 Colonoscopy COLONOSCOPY [facility] Start: 09-24-2021 COLORECTAL CANCER SCREENING COLORECTAL CANCER SCREENING [facility] Start: 09-24-2021 Screening for malign ant neoplasm of colon [facility] Start: 03-19-2021 COVID-19 VACCINE (3 - Booster for Moderna series) COVID-19 VACCINE (3 - Booster for Moderna series) [facility] Start: 03-26-2020 Lipid 1996 panel - S lui or Plasma Lipid Screening [facility] Start: 03-26-2020 Lipid panel Lipid Screening [facility] Start: 03-26-2020 LIPID SCREEN LIPID SCREEN [facility] Start: 2019 RSV Vaccine (1 - 1-d ose 60+ series) RSV Vaccine (1 - 1-dose 60+ series) [facility] Start: 03-26-2018 DIABETES SCREEN DIABETES SCREEN [facility] Start: 03-26-2018 Diabetes Screening Diabetes Screenin g [facility] Start: 01-31-2004 COLOGUARD (FIT-DNA) COLOGUARD (FIT-D NA) [facility] Start: 01-31-[address] COLONOGRAPHY [facility] Start: 01-31-2004 FECAL OCCULT BLOOD FECAL OCCULT BLOO D [facility] Start: 01-31-2004 Screening for malign ant neoplasm of colon [facility] Start: 01-31-2004 SIGMOIDOSCOPY SIGMOIDOSCOPY [facility] Start: 1977 Anxiety Screening Anxiety Screening [facility] Start: 1977 Depression Screening Depression Scre ing [facility] Start: 1977 HEPATITIS C SCREENING HEPATITIS C [facility] Start: 1977 Hepatitis C screening Hepatitis C [facility] Start: 1977 HIV SCREENING HIV SCREENING [facility] Start: 1977 HIV screening HIV Screening [facility] Start: 1971 Adult depression screening assessment DEPRESSION SCREENING [facility] End: 03-09-2023 SEBAS SCREENING [facility] SCREEN[facility] Routine Encounter for gynecological examination (general) (routine) without abnormal findings Encounter for screening mammogram for breast cancer 1 Occurrences starting 02/07/2022 until 03/09/2023 [facility] Work Phone: Comment on above: 1 Occurrences starti ng 02/07/2022 until 03/09/2023 End: 04-01-2024 SEBAS SCREENING [facility] SCREEN[facility] Routine Encounter for gynecological examination (general) (routine) without abnormal findings Encounter for screening mammogram for breast cancer 1 Occurrences starting 03/03/2023 until 04/01/2024 [facility] Work Phone: Comment on above: 1 Occurrences starti ng 03/03/2023 until 04/01/2024 [facility] Immunizations Immunization Date Immunization Notes Care Provider Gay briggs 05-15-2019 zoster vaccine recombinant Laith Mccloud MD Work Phone: [facility] Work Phone: 01-23-2019 zoster vaccine recombinant Laith Mccloud MD Work Phone: [facility] Work Phone: 07-15-2016 influenza virus vaccine, unspecified formulation Laith Mccloud MD Work Phone: [facility] 04-27-2016 zoster vaccine, live Laith Mccloud MD Work Phone: [facility] Work Phone: 01-18-2013 tetanus toxoid, redu cheng diphtheria toxoid, and acellular pertussis vaccine, adsorbed Laith Mccloud MD Work Phone: [facility] Work Phone: Payers Date Payer Category Payer Self-pay [id number] 2015 Unknown [facility] P[facility] [employer] [id number] 2015-Present [phone] [address] [place] [address] PPO [id number] 2015 Unknown [id number] 2015 Unknown [id number] Unknown [id number] Unknown [employer] DO NOT USE [id number] Unknown [id number] Unknown [id number] Unknown [id number] Unknown [id number] Unknown [id number] Unknown [id number] Unknown [id number] Unknown [id number] Unknown [id number] Unknown [id number] Unknown [id number] Unknown [id number] Unknown [id number] Social History Date Type Detail Facility Start: 12-28-2012 End: 09-30-2023 Tobacco smoking status NHIS Never smoked tobacco [facility] Start: 02-06-2021 End: 03-08-2024 Alcohol intake Current drinker of alcohol (finding) [facility] Start: 07-15-2016 History SDOH Alcohol Comment occasional [facility] Start: 1960 Sex Assigned At Not on file C [facility] Start: 01-28-2022 End: 02-07-2022 Exposure to SARS-CoV-2 (event) Not sure [facility] Start: 10-11-2015 End: 09-05-2022 Tobacco smoking status NHIS Unknown if ever smoked [facility] Start: 1960 Sex Assigned At Female W [facility] Start: 12-28-2012 End: 03-03-2023 Tobacco use and exposure Smokeless tobacco non-user [facility] Start: 03-03-2023 End: 04-03-2023 History of Social function [facility] Start: 03-03-2023 End: 04-03-2023 Tobacco use panel [facility] National Score (1-100), lower number is lower risk 66 [facility] Clinical Notes 10-14-2012 to 11-23-2024 Note Date & Type Note Facility 11-23-2024 Radiology Diagnostic study note [facility] Imaging Services [address] [place], [place] [address] Ext Non Vasc Limited/Soft Tiss MR#: [id number] Acct: [id number] Name: NAVYA FRANCES Rep #: [id number] : 1960 F 64 From: Roby Roberto MD PCP: Dr. Ajith Chung MD Status: REG CLI Study:Ext Non Vasc Limited/Soft Tiss Date of Exam: 11/23/24 Exam# [id number] Ordering Dr: Kimberly Wallis MD PROCEDURE: EXT NON VASC LIMITED/SOFT TISS 11/23/2024 REASON FOR EXAM: MASS ON SHOULDER TECHNIQUE: Ultrasound targeted to the palpable abnormality at the left shoulder.. COMPARISON: None FINDINGS: The palpable lump corresponds to a 4.1 cm by 3.6 cm x 0.7 cm slightly echogenic nodular density suggestive of a lipoma. US/Ext Non Vasc Limited/Soft Tiss IMPRESSION: The palpable abnormality measuring 4.1 cm x 3.6 cm x 0.9 cm most likely represents a lipoma. Reading Location: [id number] CC: Dr. Ajith Chung MD; Dr. Samm Wallis MD ~ Ratings Analyst: Signed [facility] 11-14-2024 Nuclear medicine Diagnostic study note [facility] Imaging Services [address] [place] [address] Gastric Emptying Study MR#: [id number] Acct: [id number] Name: NAVYA FRANCES Rep #: [id number] : 1960 F 64 From: Cordell Rosales MD PCP: Dr. Ajith Chung MD Status: REG CLI Study:Gastric Emptying Study Date of Exam: 11/11/24 Exam# [id number] Ordering Dr: Darrick Shi DO PROCEDURE: GASTRIC EMPTYING STUDY 11/11/2024 REASON FOR EXAM: BLOATING COMPARISON: None. TECHNIQUE: The patient ingested a standard meal of cooked oatmeal was ingested. There was no vomiting postprandially. Imaging for a total of 1 hour was obtained. Regions of interest were drawn, oswaldo geometric mean was used to calculate a mabv-qmffymph-cesfy. Medications taken in the past 24 hours that may affect gastric emptying: None RADIOPHARMACEUTICAL: 1.2 mCi technetium 99 M sulfur colloid in oatmeal, orally administered. FINDINGS: Linear fit half time of 52.2 minutes.. At the time of imaging, gastroesophageal reflux was not identified. Percent activity remaining in stomach: % gastric emptying at 12 minutes was 4%, 30 minutes 17%, 42 minutes 31%, 48 minutes 38%, at 60 minutes 56%. NM/Gastric Emptying Study IMPRESSION: Normal semi solid phase gastric emptying. Reading Location: [place] [address] CC: Dr. Ajith Chung MD; DO León Adhikari Ratings Analyst: Signed [facility] 08-19-2024 Evaluation note Diagnosis Onset Date Resolution Increased urinary frequency acute August 19 7:53am Constipation acute October 19 025 8:21am Mass of shoulder region acute M 2024 1:00pm [facility] Work Phone: 1(282) 936-548408-27-2024 NoteHNO ID: [id number] Author: LAITH MCCLOUD MD Service: ? Author Type: Physician Type: Progress Notes Filed: 03/08/2024 14:40 Note Text: Navya is a 64 year old who presents for an annual gynecologic exam without complaints. Doing well on estrogen and desires to continue. Uses detrol only prn trips Postmenopausal: yes HRT use: yes. Last Pap: 06/02/2003 normal HPV: N/A History of abnormal pap: No Last mammogram: 2022 normal History of abnormal mammogram: No Sexually active: Yes OB History T2 L2 SAB0 IAB0 Ectopic0 Multiple0 Live Births0 Cobbler Sole History LMP: Hysterectomy Age at Menarche: Age at First : Age at Menopause: Cobbler Sole History Comments: Sexual Activity: Yes; Male; hyst Contraception: Surgical PAST MEDICAL HISTORY No date: Goiter, unspecified No date: Other extrapyramidal disease and abnormal movement disorder Comment: restless legsPAST SURGICAL HISTORY 1999: PAST SURGICAL HISTORY OF Comment: right femoral henioraphy 2004: VAGINAL HYSTERECTOMY UTERUS 250 GM/< Comment: Hysterectomy, vaginal FAMILY HISTORY Problem Relation Age of Onset Osteoporosis Mother SOCIAL HISTORY Social History Tobacco Use Smoking status: Never Smokeless tobacco: Never Vaping Use Vaping status: Never Used Substance Use Topics Alcohol use: Yes Comment: occasional Drug use: No REVIEW OF SYSTEMS Abdomen: No abdominal pain, nausea, vomiting, diarrhea, or constipation. No bloating, early satiety, indigestion, or increased flatulence. Bladder: No dysuria, gross hematuria, urinary frequency, urinary urgency, or incontinence Breast: No breast lumps, nipple d/c, overlying skin changes, redness or skin retraction Allergies and current medication updated:Yes EXAM: BP 106/64 Ht 5' 3 (1.60m) Wt 124 lb (56.2kg) BMI 21.97 kg/(m2). GENERAL: pleasant, female in no apparent [...] external genitalia normal, normal Bartholin's glands, urethra, [place]'s glands, no vulvar lesions, good vaginal support, physiologic discharge present, normal appearing perineal body and perianal region, cervix surgically absent BIMANUAL: no adnexal masses, non-tender, and uterus surgically absent RECTOVAGINAL: deferred. NEURO: alert and oriented x3,exam grossly non-focal EXTREMITIES: normal ASSESSMENT/PLAN: 1) Health maintenance: Pap/HPV screening no longer needed Mammogram ordered 2) Follow up one year or sooner as needed Laith Mccloud [facility]08-27-2024 History of Present illness Narrative* Laith Mccloud MD - 03/08/2024 2:21 PM EDT Navya is a 64 year old who presents for an annual gynecologic exam without complaints. Doingwell on estrogen and desires to continue. Uses detrol only prn trips Postmenopausal: yes HRT use: yes. Last Pap: 06/02/2003 normal HPV: N/A History of abnormal pap: No Last mammogram: 2022 normal History of abnormal mammogram: No Sexually active: Yes OB History T2 L2 SAB0 IAB0 Ectopic0 Multiple0 Live Births0 Cobbler Sole History LMP: Hysterectomy Age at Menarche: Age at First : Age at Menopause: Cobbler Sole History Comments: Sexual Activity: Yes; Male; hyst Contraception: Surgical PAST MEDICAL HISTORY No date: Goiter, unspecified No date: Other extrapyramidal disease and abnormal movement disorder Comment: restless legsPAST SURGICAL HISTORY 1999: PAST SURGICAL HISTORY OF Comment: right femoral henioraphy 2004: VAGINAL HYSTERECTOMY UTERUS 250 GM/< Comment: Hysterectomy, vaginal FAMILY HISTORY Problem Relation Age of Onset Osteoporosis Mother SOCIAL HISTORY Social History Tobacco Use Smoking status: Never Smokeless tobacco: Never Vaping Use Vaping status: Never Used Substance Use Topics Alcohol use: Yes Comment: occasional Drug use: No REVIEW OF SYSTEMS Abdomen: No abdominal pain, nausea, vomiting, diarrhea, or constipation. No bloating, early satiety, indigestion, or increased flatulence. Bladder: No dysuria, gross hematuria, urinary frequency, urinary urgency, or incontinence Breast: No breast lumps, nipple d/c, overlying skin changes, redness or skin retraction Allergies and current medication updated:Yes EXAM: BP 106/64 Ht 5' 3 (1.60m) Wt 124 lb (56.2kg) BMI 21.97 kg/(m^2). GENERAL: pleasant, female in no apparent [...] external genitalia normal, normal Bartholin's glands, urethra, [place]'s glands, no vulvar lesions, good vaginal support, physiologic discharge present, normal appearing perineal body and perianal region, cervix surgically absent BIMANUAL: no adnexal masses, non-tender, and uterus surgically absent RECTOVAGINAL: deferred. NEURO: alert and oriented x3,exam grossly non-focal EXTREMITIES: normal ASSESSMENT/PLAN: 1) Health maintenance: Pap/HPV screening no longer needed Mammogram ordered 2) Follow up one year or sooner as needed Laith Mccloud MD documented in this encounterRiver[facility] Institute10-10-2023 Miscellaneous Notes* Addendum Note - Emma Ferrara RN - 04/21/2023 9:58 AM EDTAddended by: EMMA FERRARA RN on: 04/21/2023 09:58 AM Modules accepted: Orders * Telephone Encounter - Emma Ferrara RN - 04/21/2023 9:57 AM EDT Patient called back. Declines wanting to leave a urine sample at the lab since she is not able to see RR today. Plans to go to her other doctor. Emma Ferrara RN * Telephone Encounter - Carla Garcia RN - 04/21/2023 8:04 AM EDT Patient calling c/o UTI symptoms. Having dysuria, urinary frequency, hematuria. She does not want to go to urgent care unless RR feels she needs to. Order pending if appropriate. Patient is extremelyuncomfortable though. Last annual with RR 03/03/23. Please advise. Carla Garcia RN documented in this encounterRiverview Health Institute09-22-2023 History of Present illness Narrative* Alexandro Vargas Mammo Tech - 04/03/2023 7:10 AM EDT Radiology Service Progress Note PATIENT NAME: Navya Frances DATE OF SERVICE: April 03, 2023 TIME: 6:58 AM PATIENT IDENTITY VERIFICATION COMPLETED USING TWO (2) IDENTIFIERS: Name and Date of confirmedby patient verbally. FALL SCREENING: Has the patient [...] 03, 2023 6:58 AM documented in this encounterRiverview Health Institute09-22-2023 NoteHNO ID: [id number] Author: Alexandro Vargas Mammo Tech Service: ? Author Type: Technologist Type: Progress Notes Filed: 04/03/2023 7:19 AM Note Text: Radiology Service Progress Note PATIENT NAME: Navya Frances DATE OF SERVICE: April 03, 2023 TIME: [...] PERIPHERAL IV DATA: Not applicable SIGNED BY: Alexandro Vargas, [employer] April 03, 2023 6:58 [facility]08-22-2023 History of Present illness Narrative* Laith Mccloud MD - 03/03/2023 8:42 AM EDT Navya is a 63 year old who presents for an annual gynecologic exam without complaints. Otherthan fatigue a/p hyst many years ago Postmenopausal: yes HRT use: yes, doing well w/ it. Last Pap: 06/02/2003 normal HPV: N/A History of abnormal pap: No Last mammogram: 2020 normal History of abnormal mammogram: No Sexually active: Yes OB History T2 L2 SAB0 IAB0 Ectopic0 Multiple0 Live Births0 Cobbler Sole History LMP: Hysterectomy Age at Menarche: Age at First : Age at Menopause: Cobbler Sole History Comments: Sexual Activity: Yes; Male; hyst [...] external genitalia normal, normal Bartholin's glands, urethra, [place]'s glands, no vulvar lesions, good vaginal support, [...] needed Laith Mccloud MD documented in this encounterRiverview Health Institute07-29-2022 History of Present illness Narrative* Laith Mccloud MD - 02/07/2022 8:59 AM EDT Navya is a 62 year old who presents for an annual gynecologic exam without complaints. Postmenopausal: yes HRT use: No. Last Pap: 06/02/2003 normal HPV: N/A History of abnormal pap: No Last mammogram: 2020 normal History of abnormal mammogram: Yes Sexually active: Yes OB History T2 L2 SAB0 IAB0 Ectopic0 Multiple0 Live Births0 Cobbler Sole History LMP: Hysterectomy Age at Menarche: Age at First : Age at Menopause: Cobbler Sole History Comments: Sexual Activity: Yes; Male; hyst [...] external genitalia normal, normal Bartholin's glands, urethra, [place]'s glands, no vulvar lesions, good vaginal support, [...] needed Laith Mccloud MD documented in this encounterRiverview Health Institute06-21-2022 Miscellaneous Notes* Telephone Encounter - Eva Howell LPN - 12/31/2021 7:05 AM EDT See pharmacy generated refill request. Pt has upcoming yearly scheduled. Eva Howell LPN documented in this encounterRiverview Health Institute04-04-2013 History of Past illness Narrative* Problem Noted Date Resolved Date Symptomatic menopausal or female climacteric sta mesfin 10/14/2012 07/15/2016 Routine General Medical Exam ination at a Health Care Facility 04/18/2008 09/27/2014 Overview: Vitamin D 52 in 04-19: on supplements for FH of osteoporosis Father had CABG in his 60s (former smoker) Pt e-mail about considering a stress test in 08-21 after seeing [employer]RO[facility] UI DEVELOPER for eval of menopause ED 11-18 for [...] of this encounter (statuses as of 12/31/2021) [facility] History of Past illness Narrative* Problem Noted Date Resolved Date Symptomatic menopausal or female climacteric sta mesfin 10/14/2012 07/15/2016 Routine General Medical Exam ination at a Health Care Facility 04/18/2008 09/27/2014 Overview: Vitamin D 52 in 04-19: on supplements for FH of osteoporosis Father had CABG in his 60s (former smoker) Pt e-mail about considering a stress test in 08-21 after seeing [facility] DEVELOPER for eval of menopause ED 11-18 for [...] of this encounter (statuses as of 02/07/2022) [facility] History of Past illness Narrative* Problem Noted Date Resolved Date Symptomatic menopausal or female climacteric sta mesfin 10/14/2012 07/15/2016 Routine General Medical Exam ination at a Health Care Facility 04/18/2008 09/27/2014 Overview: Vitamin D 52 in 04-19: on supplements for FH of osteoporosis Father had CABG in his 60s (former smoker) Pt e-mail about considering a stress test in 08-21 after seeing [employer] [employer] DEVELOPER for eval of menopause ED 11-18 for [...] of this encounter (statuses as of 03/10/2022) [facility] History of Past illness Narrative* Problem Noted [...] a stress test in 08-21 after seeing [employer] DEVELOPER for eval of menopause ED 11-18 for [...] of this encounter (statuses as of 03/03/2023) [facility] History of Past illness Narrative* Problem Noted [...] a stress test in 08-21 after seeing [employer] DEVELOPER for eval of menopause ED 11-18 for [...] of this encounter (statuses as of 04/21/2023) [facility] History of Past illness Narrative* Problem Noted [...] a stress test in 08-21 after seeing [employer] DEVELOPER for eval of menopause ED 11-18 for injury to R 3rd digit: no fracture [facility] ([place]) in 11-18: PIP flexion-DIP extension splinting Sleep [...] of this encounter (statuses as of 05/17/2023) [facility] Diagnosis Encounter for gynecological examination (general) (routine) without abnormal findings Encounter for screening mammogram for breast cancer documented in this encounter [facility] noteNo assessment information availableWTrinity Health System Work Phone: Evaluation note* Diagnosis Encounter for gynecological examination (general) (routine) without abnormal findings- Primary Encounter for screening mammogram for breast cancer [facility] encounter [facility]* Diagnosis Hematuria, unspecified type- Primary Urinary frequency Dysuria documented [facility] this encounter [facility]* Diagnosis Encounter for gynecological examination (general) (routine) without abnormal findings Encounter for screening mammogram for breast cancer [facility] encounter [facility]* Diagnosis Encounter for gynecological examination (general) (routine) without abnormal findings- Primary documented in this encounter [facility] for referral (narrative)* Diagnostic Procedure Only (Routine) - Pending Review Specialty Diagnoses / Procedures Referred By Maria Fernanda brown Referred To Contact [facility] Diagnoses Encounter for gynecological examination (general) (routine) without abnormal findings Encounter for screening mammogram for breast cancer Procedures SEBAS SCREENING W MAURICE SCREENING DIGITAL BREAST TOMOSYNTHESIS BI SCREENING MAMMOGRAPHY BI 2-VIEW BREAST INC CAD Laith Mccloud MD [address] [place] [place] [address] [facility] [address] [place] [address] Referral ID Status Reason Start Date Expiration Date Visits Requested Visits Authorized [id number] Pending Review Auto-Generat ed Referral 02/07/2022 03/09/2023 1 1 [facility] for referral (narrative)* Diagnostic Procedure Only (Routine) - Pending Review Specialty Diagnoses / Procedures Referred By Maria Fernanda brown Referred To Contact [facility] Diagnoses Encounter for gynecological examination (general) (routine) without abnormal findings Encounter for screening mammogram for breast cancer Procedures SEBAS SCREENING W MAURICE SCREENING DIGITAL BREAST TOMOSYNTHESIS BI SCREENING MAMMOGRAPHY BI 2-VIEW BREAST INC Laith Sneed MD [address] [place] [place] [address] [facility] [address] [place] [phone] Referral ID Status Reason Start Date Expiration Date Visits Requested Visits Authorized [id number] Pending Review Auto-Generat ed Referral 03/03/2023 04/01/2024 1 1 [facility] for referral (narrative)* Diagnostic Procedure Only (Routine) - Closed Specialty Diagnoses / Procedures Referred By Maria Fernanda brown Referred To Contact [facility] Diagnoses Encounter for gynecological examination (general) (routine) without abnormal findings Encounter for screening mammogram for breast cancer Procedures SEBAS SCREENING W MAURICE SCREENING DIGITAL BREAST TOMOSYNTHESIS BI SCREENING MAMMOGRAPHY BI 2-VIEW BREAST INC Laith Sneed MD [address] [place] [address] [facility] [address] [place] [address] Referral ID Status Reason Start Date Expiration Date V isits Requested Visits Authorized [id number] Closed Auto-Generate d Referral 03/03/2023 04/01/2024 1 1 [facility] ([facility]ative)No reason for referral information availableWTrinity Health System Work Phone: Reason for visit Narrative* Diagnostic Procedure Only (Routine) - Closed Specialty Diagnoses / Procedures Referred By Contac t Referred To Contact [facility] Diagnoses Encounter for gynecological examination (general) (routine) without abnormal findings Encounter for screening mammogram for breast cancer Procedures SEBAS SCREENING W MAURICE SCREENING DIGITAL BREAST TOMOSYNTHESIS BI SCREENING MAMMOGRAPHY BI 2-VIEW BREAST INC CAD Laith Mccloud MD [facility] [place] [address] [facility] [address] [place] [address] Referral ID Status Reason Start Date Expiration Date V isits Requested Visits Authorized [id number] Closed Auto-Generate d Referral 03/03/2023 04/01/2024 1 1 [facility] Chief Complaint and Reason for Visit Chief Complaint EORDER Chief Complaint Admit Date Urinary tract infection August 19 7:53am Constipation October 19, 2024 8:21 am BLOATING November 11, 2024 10:35a m SYNOVIAL CYST/ LIPOMA November 11, 2024 1:00 pm Reason for Visit Admit Date Increased urinary frequency August 7:53am Constipation October 19, 2024 8:21 am Mass of shoulder region November 11, 2024 1: 00pm Chief Complaint Admit Date Urinary tract infection August 19 7:53am Constipation October 19, 2024 8:21 am BLOATING November 11, 2024 10:35a m SYNOVIAL CYST/ LIPOMA November 11, 2024 1:00 pm MASS LT SHOULDER November 23, 2024 9:34a m Summary Purpose Family History No Family History Records FoundNo Family History Records Found Advance Directives No Advanced Directives Records FoundNo Advanced Directives Records Found Additional Source Comments Source Comments (unrecognize d section and content) In the event this informatio n is protected by the Federal Confidentiality of Alcohol and Drug Abuse Patient Records regulations: The Federal rules restrict any use of the information to criminally investigate or prosecute any alcohol or drug abuse patient.[facility] the event this information is protected by the Federal Confidentiality of Alcohol and Drug Abuse Patient Records regulations: The Federal rules restrict any use of the information to criminally investigate or prosecute any alcohol or drug abuse patient.[facility] Institute[facility] the event this information is protected by the Federal Confidentiality of Alcohol and Drug Abuse Patient Records regulations: The Federal rules restrict any use of the information to criminally investigate or prosecute any alcohol or drug abuse patient.[facility] Institute[facility] the event this information is protected by the Federal Confidentiality of Alcohol and Drug Abuse Patient Records regulations: The Federal rules restrict any use of the information to criminally investigate or prosecute any alcohol or drug abuse patient.[facility] Institute[facility] the event this information is protected by the Federal Confidentiality of Alcohol and Drug Abuse Patient Records regulations: The Federal rules restrict any use of the information to criminally investigate or prosecute any alcohol or drug abuse patient.[facility] Institute[facility] the event this information is protected by the Federal Confidentiality of Alcohol and Drug Abuse Patient Records regulations: The Federal rules restrict any use of the information to criminally investigate or prosecute any alcohol or drug abuse patient.[facility] Institute[facility] the event this information is protected by the Federal Confidentiality of Alcohol and Drug Abuse Patient Records regulations: The Federal rules restrict any use of the information to criminally investigate or prosecute any alcohol or drug abuse patient.[facility] Reason for Visit (unrecogniz ed section and content) Reason Comments Refill Request Reason Comments Yearly Exam Reason Comments UTI Reason Comments Yearly Exam Care Teams (unrecognized sec tion and content) Doping Supervisor Relationship Specialty Start Date End Date Ajith Chung MD [address] [place] [id number] PCP - General Family Practice 09/27/14 Doping Supervisor Relationship Specialty Start Date End Date Ajith Chung MD [address] [place], [place] [id number] PCP - General Family Practice 09/27/14 Doping Supervisor Relationship Specialty Start Date End Date Ajith Chung MD [address] [place], [place] [phone] PCP - General Family Practice 09/27/14 Doping Supervisor Relationship Specialty Start Date End Date Ajith Chung MD [address] [place], [place] [phone] PCP - General Family Medicine 09/27/14 Doping Supervisor Relationship Specialty Start Date End Date Ajith Chung MD [address] [address] PCP - General Family Medicine 09/27/14 Team Status: Active Member Role Status Dates Dr. Talat Chung MD Family Provider Active Dr. Talat Chung MD Primary Care Provider Activ e Team Status: Inactive Member Role Status Dates Dr. Talat Chung MD Primary Care Provider Activ e Blanca Torres NEWS SPECIALIST, NEWS SPECIALIST-C Attending Provider Active Team Status: Inactive Member Role Status Dates Dr. Talat Chung MD Primary Care Provider Activ e Kirk Pires MD Attending Provider Active Doping Supervisor Relationship Specialty Start Date End Date Ajith Chung MD [address] [place] [address] PCP - General Family Medicine 09/27/14 Team Status: Inactive Member Role Status Dates Dr. Talat Chung MD Primary Care Provider, Attending Provider, Referring Provider Active Doping Supervisor Relationship Specialty Start Date End Date Ajith Chung MD [address] [place] [address] PCP - General Family Medicine 09/27/14 Team Status: Active Member Role Status Dates Dr. Ajith Chung MD Primary Care Provider Acti ve Team Status: Inactive Member Role Status Dates Dr. Ajith Chung MD Primary Care Provider Acti ve Start: August 19, 2024 End: August 19, 2024 Dr. Ajith Chung MD Referring Provider Active Start: August 19, 2024 End: August 19, 2024 Kojo ESTRADA PA Attending Provider Active Sta rt: August 19, 2024 End: August 19, 2024 Team Status: Inactive Member Role Status Dates Dr. Ajith Chung MD Primary Care Provider Acti ve Start: October 19, 2024 End: October 19, 2024 Dr. Ajith Chung MD Referring Provider Active Start: October 19, 2024 End: October 19, 2024 Dr. Omar Shi DO Attending Provider Active Start: October 19, 2024 End: October 19, 2024 Team Status: Inactive Member Role Status Dates Dr. Ajith Chung MD Primary Care Provider Acti ve Start: November 11, 2024 End: November 11, 2024 Dr. Omar Shi DO Attending Provider Active Start: November 11, 2024 End: November 11, 2024 Dr. Omar Shi DO Referring Provider Active Start: November 11, 2024 End: November 11, 2024 Team Status: Inactive Member Role Status Dates Dr. Ajith Chung MD Primary Care Provider Acti ve Start: November 11, 2024 End: November 11, 2024 Dr. Ajith Chung MD Referring Provider Active Start: November 11, 2024 End: November 11, 2024 Dr. Samm Wallis MD Attending Provider Active Start: November 11, 2024 End: November 11, 2024 Team Status: Inactive Member Role Status Dates Dr. Ajith Chung MD Primary Care Provider Acti ve Start: November 23, 2024 End: November 23, 2024 Dr. Samm Wallis MD Attending Provider Active Start: November 23, 2024 End: November 23, 2024 Dr. Samm Wallis MD Referring Provider Active Start: November 23, 2024 End: November 23, 2024 Goals (unrecognized section and content) Goals may be documented in a n alternate sectionGoals may be documented in an alternate sectionGoals may be documented in an alternate sectionGoals may be documented in an alternate sectionGoals may be documented in an alternate section INFORMATION SOURCE (unrecogn ized section and content) DATE CREATED AUTHOR 03/10/2024 [facility] DATE CREATED AUTHOR AUTHOR'S MARCOS FINNEY 12/14/2024 [facility] FOR RECORDS PERTAINING TO PATIENTS WHO ARE [...] BE BASED ON THE PRIMARY CLINICAL RECORDS. [employer] provides no warranty or guarantee of the accuracy or completeness of information in this document.
== END 2024-12-14 14:23 | disposition home or self-care (01) ==
LOC: SDC 11:31 → AC 11:33
PROVIDERS: PCP Family Medicine; Referring Provider Surgery Plastic and Reconstructive Surgery; Visit Provider Surgery Plastic and Reconstructive Surgery
PROC: (CPT 24071; principal; 2024-12-14 12:45)
DX: R22.32 Localized swelling, mass and lump, left upper limb (principal)
CPT/HCPCS: 24071; 12032; 00400; 88304; 88305; J2405

== ENCOUNTER → 2025-01-26 | Outpatient (CLI) | payer OTHER, SELFPAY ==
[2025-01-26 13:35] LABS: Anion Gap 11 (5-15); BUN 17 mg/dL (4-19); BUN/Creat Ratio 23.1 RATIO (10-20); Calcium,Total 9.5 mg/dL (7.6-11.0); Carbon Dioxide 26.3 mmol/L (21.0-32.0); Chloride 104 mmol/L (98-108); Cholesterol 176 mg/dL (<=200); Glucose 87 mg/dL (70-99); Low Density Lipoprotein Calc. 68 mg/dL; Potassium 4.3 mmol/L (3.3-5.1); Triglycerides 54 mg/dL; Very Low Density Lipoprotein 11 mg/dL (5-40); Vitamin D,25 Hydroxy 73.9 ng/mL (30-100); cholesterol:hdl ratio screen 1.81
== END | disposition home or self-care (01) ==
LOC: MFPLAB 11:21
PROVIDERS: PCP Family Medicine; Referring Provider Family Medicine; Visit Provider Family Medicine
DX: Z13.1 Encounter for screening for diabetes mellitus (principal); E04.9 Nontoxic goiter, unspecified; R81 Glycosuria; Z13.220 Encounter for screening for lipoid disorders
CPT/HCPCS: 36415; 80048; 80061; 82306; 83036; 84443

== ENCOUNTER → 2025-02-01 | Outpatient (CLI) | payer OTHER, SELFPAY ==
--- NOTE | 2025-02-01 14:51 | BD_ITS ---
PROCEDURE: DEXA BONE DENSITY STUDY 02/01/2025 REASON FOR EXAM: F, age 65 y/o . TECHNIQUE: DEXA BONE DENSITY STUDY COMPARISON: None available FINDINGS: BMD and T-SCORES Lumbar spine: 1.006 g/cm2, T-score -0.3 Levels: L1 and L4. Right femoral neck: 0.698 g/cm2, T-score -1.4 BD/Dexa Bone Density Study IMPRESSION: Patient's bone density reveals osteopenia with an estimated 10 year risk for hi p fracture of 0.8% and for a Major osteoporotic fracture of 8.1%. This fracture risk estimate was calculated using FRAX versio n 3.08. Reading Location: [id number]
== END | disposition home or self-care (01) ==
LOC: OPBD 14:47
PROVIDERS: PCP Family Medicine; Referring Provider Family Medicine; Visit Provider Family Medicine
DX: Z78.0 Asymptomatic menopausal state (principal)
CPT/HCPCS: 77080

== ENCOUNTER 2025-05-29 05:59 | Day surgery (SDC) | payer OTHER, SELFPAY ==
[2025-05-29] VITALS (8 sets, daily range): BP systolic 91–134; BP diastolic 40–82; PULSE 64–80; RESP 16; TEMP 36.1–37.2; O2SAT 100; BMI 19.9
[2025-05-29] MEDS: Lactated Ringers 1,000 ML 15 ML IV (06:15)
--- OUTSIDE RECORDS SUMMARY | 2025-05-29 06:21 | XMS RPT_ITS | CCD ---
Author Organization [facility] CliniSyid Care Team Providers Care Case Packer Name Role Phone Ajith Chung MD Primary Care Provider Juliet RASHEED, Dr. Rodriguez Primary Care Provider Juliet RASHEED, Dr. Rodriguez Referring Provider Kojo Kaye Attending Provider Dr. Omar Shi DO Attending Provider Jose Guadalupe MCCORD, Dr. Nelson Referring Provider Kadi RASHEED, Dr. Quijano Attending Provider Kadi RASHEED, Dr. Quijano Referring Provider Keagan RASHEED, Dr. Fischer Referring Provider [phone] Kadi RASHEED, Dr. Quijano Other Provider Juliet RASHEED, Dr. Rodriguez Primary Care Provider Dr. Ajith Chung MD Referring Provider Juliet RASHEED, Dr. Rodriguez Attending Provider [phone] Ajith Chung MD Primary Care Provider LAITH MCCLOUD Referring Unavailable AJITH CHUNG Primary Care Unavailabl e LAITH MCCLOUD Attending Unavailable AJITH CHUNG Primary Care Unavailmario e Ajith Chung Referring Unavailable Omar Shi Attending Unavailable Ajith Chung Primary Care Unavailable Ajith Chung Referring Unavailable Kojo Kaye Attending Unavailable Ajith Chung Primary Care Unavailable Samm Wallis Consulting Unavailable Samm Wallis Referring Unavailable Samm Wallis Attending Unavailable Ajith Chung Primary Care Unavailable Ajith Chung Primary Care Unavailable Ajith Chung Referring Unavailable Friend, Omar Attending Unavailable [facility] Primary Care Unavailable Ranfromberg, Christianacarerubyer Referring Unavailable Siska, Samm Attending [facility]available [facility] Friend, Omar Attending Unavailable [place], [place] Primary Care Unavailable Ranfromberg, Christianacareopher Referring Unavailable Ranfromberg, Ajith Attending Unavailable Siska, Samm Referring Unavailable Siska, Samm Attending Unavailable [place], [place] Primary Care Unavailable Ranfrom[place], [place] Primary Care Unavailable Ranfromberg, Tonier Referring Unavailable Ranfromberg, Ajith Attending Unavailable Siska, Samm Referring Unavailable Siska, Samm Attending Unavailable [place], [place] Primary Care Unavailable Friend, Omar Referring Unavailable Friend, Omar Attending Unavailable [facility], [place] Primary Care Unavailable [facility], [place] Primary Care Unavailable Maryann Chavis Referring Unavailable Atanasalicia, Maryann Attending Unavailable Shortyfromberg, [place] Primary Care Unavailable AtanasMaryann vargas Referring Unavailable Atanasalicia, Maryann Attending Unavailable Shortyfrom[place], [place] Referring Unavailable Siska, Samm Attending Unavailable [facility] Unavailable Siska, Samm Attending Unavailable [facility] Care Unavailable Amado Boogie Referring Unavailable Allergies Allergy Classification Reported Allergen(s) Allergy Type Date of Onset Reaction(s) Facility (13 sources) Azithromycin; Translations: [AZITHROMYCIN] Drug Allergy 10-08-2006 Diarrhea [facility] (13 sources) Cephalexin; Translations: [CEPHALEXIN] Drug Allergy 10-08-2006 GI Upset [facility] (8 sources) Penicillins Allergy to substance 11-11-2024 unknown [facility] Comment on above: reaction as a child (1 source) Penicillins Drug allergy (disorder) 12-14-2024 [facility] Repository Medications Current Medications Medication Drug Class(es) Dates Sig (Normalized) Sig (Original) 84 hr estradiol 0.03533 mg/hr transdermal system (20 sources) Estrogen Start: 12-03-2022 End: 03-10-2025 estradiol (MINIVELLE, VIVELLE-DOT) 0.025 mg/24 hr patch APPLY 1 PATCH EVERY THURSDAY AND THURSDAY DIRECTED 24 patch 3 03/10/2025 Active Start: 09-05-2022 Estradiol 0.02 5 mg/24 hr patch semiweekly Active 1 NMA TD MOTH September 05, 2022 1:00am Start: 09-05-2022 Estradiol Acti ve PATCH TD September 05, 2022 12:00am Start: 12-31-2021 estradiol (TONY RA, VIVELLE-DOT) 0.025 mg/24 hr APPLY 1 PATCH EVERY THURSDAY AND THURSDAY DIRECTED 24 Patch 3 12/31/2021 Active Start: 02-06-2021 End: 12-31-2021 estradiol (SAMIR, SANGELLE-DO T) 0.025 mg/24 hr Apply 1 Patch as directed every Thursday and Thursday. 24 Patch 3 02/06/2021 12/31/2021 Discontinued Comment on above: Apply 1 Patch as dir ected every Thursday and Thursday. APPLY 1 PATCH EVERY THURSDAY AND THURSDAY DIRECTED ibuprofen 200 mg oral tablet (12 sources) Nonsteroidal Anti-inflammatory Drug Start: 12-07-2007 IBUPROFEN 200 MG TAB Take 1-2 tablet's) every four(4) to six(6) hours as needed for pain. 0 0 12/07/2007 Active Comment on above: Take 1-2 tablet's) e very four(4) to six(6) hours as needed for pain. linaclotide 0.29 mg oral capsule (20 sources) Guanylate Cyclase-C Agonist Start: 01-24-2025 LINZESS 290 mcg capsule 01/24/2025 Active Start: 01-18-2025 End: 01-24-2025 take 1 capsule by mouth twice daily Linaclotide (Linzess) 290 mcg capsule Discontinued 290 ug PO TWICE A DAY 60 2 January 18, 2025 12:24pm January 24, 2025 8:28am Start: 12-01-2024 End: 01-18-2025 take 1 capsule by mouth every other day Linaclotide (Linzess) 290 mcg capsule Discontinued 290 ug PO EVERY OTHER DAY December 01, 2024 12:00am January 18, 2025 12:30pm Start: 08-19-2024 End: 12-01-2024 take 1 capsule by mouth once daily in the morning Linaclotide (Linzess) 290 mcg capsule Discontinued 290 ug PO EVERY MORNING 30 2 September 28, 2024 10:58am December 01, 2024 11:37am Start: 07-29-2024 End: 08-19-2024 take 1 capsule by mouth once daily in the morning Linaclotide (Linzess) 145 mcg capsule Discontinued 290 ug PO EVERY MORNING 90 1 August 19, 2024 10:35am August 19, 2024 4:10pm Start: 06-28-2024 End: 07-29-2024 take 1 capsule by mouth once daily in the morning Linaclotide (Linzess) 72 mcg capsule Discontinued 72 ug PO EVERY MORNING 90 3 June 28, 2024 1:00am July 29, 2024 5:35pm naproxen sodium 220 mg oral tablet (12 sources) Nonsteroidal Anti-inflammatory Drug Start: 12-07-2007 naproxen sodium(ALEVE 220 MG TAB) as necessary 0 0 12/07/2007 Active Comment on above: as necessary 24 hr tolterodine tartrate 2 mg extended release oral capsule (7 sources) Cholinergic Muscarinic Antagonist Start: 07-14-2023 End: 03-10-2025 take 1 capsule by mouth once daily tolterodine ER (DETROL LA) 2 mg 24 hr capsule Take 1 capsule by mouth once daily. 90 capsule 3 03/10/2025 Active Completed/Discontinued Medications Medication Drug Class(es) Dates Sig (Normalized) Sig (Original) azithromycin 250 mg oral tablet (10 sources) Macrolide Antimicrobial Start: 09-05-2022 End: 09-30-2023 take 2-5 tablets by mouth once daily Azithromycin 250 mg tablet Discontinued 0 PO .COMPLEX 6 0 September 05, 2022 1:00am September 30, 2023 8:11am take 500 mg today (day 1), then 250 mg for 4 days (days 2-5) PO lubiprostone 0.008 mg oral capsule (16 sources) Chloride Channel Activator Start: 06-21-2024 End: 10-19-2024 take 1 capsule by mouth twice daily Lubiprostone 8 mcg capsule Discontinued 8 ug PO TWICE A DAY 180 2 June 21, 2024 12:18pm October 19, 2024 9:05am metoclopramide 5 mg oral tablet (7 sources) Dopamine-2 Receptor Antagonist Start: 11-23-2024 End: 12-01-2024 take 1 tablet by mouth before mealtime Metoclopramide Hcl 5 mg tablet Discontinued 5 mg PO before meals 120 0 November 23, 2024 12:00am December 01, 2024 11:37am oxyCODONE hydrochloride 5 mg oral tablet (6 sources) Opioid Agonist Start: 12-14-2024 End: 01-18-2025 take 1 tablet by mouth every twelve hours as needed for pain Oxycodone 5 mg tablet Discontinued 5 mg PO Q12H as needed for pain 10 5 0 December 14, 2024 January 18, 2025 8:14am Mass of shoulder region Localized swelling, mass and lump, unspecified upper limb predniSONE 10 mg oral tablet (8 sources) Start: 02-01-2024 End: 04-23-2024 take 3 tablets by mouth once daily, then take 2 tablets by mouth once daily, then take 1 tablet by mouth once daily Prednisone 10 mg tablet Discontinued 10 mg PO DAILY 18 0 February 01, 2024 12:00am April 23, 2024 8:11am 3 tablets daily x3 days, then 2 tablets daily x3 days, then 1 tablet daily x3 days sulfamethoxazole 800 mg / trimethoprim 160 mg oral tablet (8 sources) Dihydrofolate Reductase Inhibitor Antibacterial, Sulfonamide Antimicrobial Start: 04-23-2024 End: 04-28-2024 Sulfamethoxazole-Tr imethoprim 800-160 mg tablet Discontinued 1 {tbl} PO TWICE A DAY 10 5 0 April 23, 2024 12:00am April 27, 2024 12:00am April 28, 2024 12:10am Hematuria Hematuria, unspecified trospium chloride 20 mg oral tablet (3 sources) Cholinergic Muscarinic Antagonist Start: 02-19-2021 take 1 tablet by mouth twice daily trospium (SANCTURA) 20 mg tablet Take 1 tablet by mouth twice daily. 60 tablet 4 02/19/2021 Active Comment on above: Take 1 tablet by deisi twice daily. Problems Active Problems Problem Classification Problem Date Documented Date Episodic/Chronic Acute bronchitis (10 sources) Acute bronchitis; Translations: [Acute bronchitis, unspecified] 09-05-2022 Episodic Genitourinary symptoms and ill-defined conditions (12 sources) Urge incontinence of urine; Translations: [Urge incontinence] Onset: 2 12-16-2011 Chronic Other gastrointestinal disorders (18 sources) Constipation; Translations: [Constipation, unspecified] 05-11-2024 Episodic Other hereditary and degenerative nervous system conditions (12 sources) System disorder of the nervous system; 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] 01-07-2006 Chronic Other skin disorders (20 sources) Mass of shoulder region; Translations: [Localized swelling, mass and lump, unspecified upper limb] 11-11-2024 Episodic Comment on above: Left shoulder Left shoulderExcised December 2024, consistent with benign lipoma Other skin disorders (8 sources) Mass of body structure 11-11-2024 Episodic Spondylosis; intervertebral disc disorders; other back problems (12 sources) Degeneration of cervical intervertebral disc; Translations: [Other cervical disc degeneration, unspecified cervical region] Onset: 12-07-2007 Chronic Sprains and strains (8 sources) Sprain of metacarpophalangeal joint of unspecified finger, initial encounter; Translations: [Sprain of metacarpophalangeal joint of right hand] 09-30-2023 Episodic Thyroid disorders (12 sources) Goiter; Translations: [Nontoxic goiter, unspecified] 04-18-2008 Chronic Past or Other Problems Problem Classification Problem Date Documented Da te Episodic/Chronic Genitourinary symptoms and ill-defined conditions (20 sources) Blood in urine; Translations: [Hematuria, unspecified] Onset: 01-11-2008 Resolved: 07-15-2016 04-21-2023 Episodic Menopausal disorders (6 sources) Menopausal symptom; Translations: [Menopausal and female climacteric states] Onset: 10-14-2012 Resolved: 07-15-2016 07-15-2016 Chronic Other gastrointestinal disorders (1 source) Constipation, unspecified; Translations: [Constipation, unspecified] Onset: 01-24-2025 Episodic Other nutritional; endocrine; and metabolic disorders (6 sources) Overweight; Translations: [Overweight] Onset: 04-14-2008 Resolved: 12-16-2011 12-16-2011 Episodic Other screening for suspected conditions (not mental disorders or infectious disease) (9 sources) Patient encounter status; Translations: [Encounter for screening mammogram for malignant neoplasm of breast] Onset: 02-01-2025 Episodic Other skin disorders (2 sources) Localized swelling, mass and lump, unspecified upper limb; Translations: [Localized swelling, mass and lump, unspecified upper limb] Onset: 12-14-2024 Episodic Other skin disorders (1 source) Localized swelling, mass and lump, left upper limb; Translations: [Localized swelling, mass and lump, left upper limb] Onset: 01-19-2025 Episodic Residual codes; unclassified (6 sources) Disturbance in sleep behavior; Translations: [Sleep disorder, unspecified] Onset: 04-14-2008 Resolved: 07-15-2016 07-15-2016 Episodic Residual codes; unclassified (1 source) Asymptomatic menopausal state; Translations: [Asymptomatic menopausal state] Onset: 02-06-2025 Episodic Spondylosis; intervertebral disc disorders; other back problems (6 sources) Pain in thoracic spine; Translations: [Pain in thoracic spine] Onset: 12-07-2007 Resolved: 07-15-2016 07-15-2016 Episodic Unclassified (3 sources) Patient encounter status 02-13-2025 Results Test Name Value Interpretation Reference Range Facility OV 03-10-2025 CNOV Office Visit (OBGYWM ) NAVYA FRANCES ([id number]) 1960 F Date Time Provider Department 03/10/25 8:40 AM LAITH MCCLOUD OBJERRY During your visit today, we recorded the following information about you: Blood pressure Weight Height 106/78 58.1 kg 1.613 m Laith Mccloud MD 03/10/2025 9:09 AM Signed Navya is a 65 year old who presents for an annual gynecologic exam without complaints. Doing well w/ estrogen patch. No c/o. Mother is in memory unit due to dementia. retiring Jul 12. Postmenopausal: yes HRT use: patch. Still get period: No LMP: n/a s/p hyst Menopause symptoms: None Last pap smear: before hyst History of abnormal pap: no Bothersome pelvic pain: No Last mammogram: today pending History of abnormal mammogram: No OB History Gravida2 Para2 Term2 Preterm0 AB0 Living2 SAB0 IAB0 Ectopic0 Multiple0 Live Births0 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 LMP: Hysterectomy Age at Menarche: 10 Age at First : Age at Menopause: 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 Comments: Sexual Activity: Yes; Male; hyst [...] skin retraction Allergies and current medication updated:Yes SENSITIVE EXAM: The sensitive examination was discussed with the Patient or Patient's Authorized Avionics Shop Supervisor. As applicable, any other physician, advance practice provider, medical student, or other health professional student that will be observing or involved in the sensitive examination for educational or training purposes was discussed with the Patient or Authorized Avionics Shop Supervisor. The Patient or Authorized Avionics Shop Supervisor has agreed to proceed with the sensitive examination. (Sensitive examination includes inspection and/or palpation of the breasts, pelvis, prostate and anorectal regions). EXAM: There were no vitals taken for this visit. GENERAL: pleasant, female in no apparent distress [...] external genitalia normal, normal Bartholin's glands, urethra, [place]'s glands, no vulvar lesions, good vaginal support, physiologic discharge present, normal appearing perineal body and perianal region, cervix surgically absent, cystocele 1st degree, atrophic flattened epithelium BIMANUAL: no adnexal masses, non-tender, and uterus surgically absent RECTOVAGINAL: deferred. NEURO: alert and oriented x3,exam grossly non-focal EXTREMITIES: normal ASSESSMENT/PLAN: 1) Health maintenance: Pap/HPV screening no longer needed mammo done other health screens per PCP 2) Follow up one year or sooner as needed f/ in 1 year or prn cont. estrogen patch and detrol prn Laith Mccloud MD Allergies As of Date: 03/10/2025 Noted Allergy Reaction AZITHROMYCIN 10/08/2006 6 - Diarrhea Comments: Has taken recently with no reaction CEPHALEXIN 10/08/2006 8 - GI Upset Comments: nausea Date Reviewed: 03/10/2025 Reviewed by: Laith Mccloud MD - Fully Assessed Reason for Visit: Yearly Exam [187] Primary Visit Diagnosis:Encounter for gynecological examination (general) (routine) without abnormal findings [Z01.419] Other Visit Diagnosis:Encounter for screening mammogram for breast cancer [Z12.31] Order(s):[facility] SCREENING W MAURICE [[id number]] Order #: [id number] FUTURE estradiol (MINIVELLE, VIVELLE-DOT) 0.025 mg/24 hr patchAPPLY 1 PATCH EVERY THURSDAY AND THURSDAY DIRECTEDDisp: 24 patchRfl: 3 tolterodine ER (DETROL LA) 2 mg 24 hr capsuleTake 1 capsule by mouth once daily.Disp: 90 capsuleRfl: 3 Prescriptions as of 03/10/2025 - LINZESS 290 mcg capsule - estradiol (MINIVELLE, VIVELLE-DOT) 0.025 mg/24 (more content not included)... Normal [facility]BAS SCREENING W TOMOon 03-10 [facility] SCREENING W MAURICE * * *Final Report* * * DATE OF EXAM: Mar 10 2025 7:53AM WRW [id number] - [facility] SCREENING W MAURICE / PROCEDURE REASON: Breast screening * * * * Physician Interpretation * * * * RESULT: [facility] [address] [id number] #[id number] - [facility] SCREENING W MAURICE HISTORY: 65 year-old patient presents for screening. Patient is asymptomatic. Patient states no personal history of breast cancer. COMPARISON STUDIES: The present examination has been compared to prior imaging studies dated 07/15/2016 (mammogram), 07/29/2016 (mammogram), 09/09/2018 (mammogram), 02/06/2021 (mammogram) and 04/03/2023 (mammogram). MAMMOGRAM TECHNIQUE: The study was acquired using full field digital technology and interpreted from soft copy. Digital Breast Tomosynthesis (DBT) images were obtained and used to assist in the interpretation of this examination. MAMMOGRAM FINDINGS: The breasts are extremely dense, which lowers the sensitivity of mammography. No suspicious masses, calcifications or other abnormalities are seen in either breast. There are no significant interval changes. IMPRESSION: There is no mammographic evidence of malignancy in either breast. Routine screening mammogram is recommended. Annual mammogram will be due in 1 year. BI-RADS Category 1: Negative RISK: Based on the Tyrer-Cuzick (TC) risk assessment model, this patient has a 6.6% lifetime risk of developing breast cancer, meaning they are at average risk for developing breast cancer. However, this is only an estimate based on available history provided on the patient's questionnaire. We encourage all patients to talk with their providers about these results, further recommendations for managing breast health, and appropriate supplemental screening options if the patient has dense breast tissue. Interpreting Radiologist: Doug Murray M.D. Electronically signed on: 03/13/2025 Fitter Helper: DANNY Transcribe Date/Time: Mar 10 2025 7:43A Dictated by: DOUG MURRAY MD This examination was interpreted and the report reviewed and electronically signed by: DOUG MURRAY MD on Mar 13 2025 11:05PM EST [id number] Normal [facility] Shashi 02-13-2025 CNPN Telephone (OBGYWM) NAVYA FRANCES ([id number]) 1960 F Date Time Provider Department 02/13/25 LAITH MCCLOUD OBGYWM During your visit today, we recorded the following information about you: Lora Ferrara RN 02/13/2025 2:30 PM Signed Pt calling for mammogram order as she'd like to get this scheduled around annual exam time. Please file order and will forward to PSS to contact Pt to schedule. Lora Ferrara RN Allergies As of Date: 02/13/2025 Noted Allergy Reaction AZITHROMYCIN 10/08/2006 6 - Diarrhea Comments: Has taken recently with no reaction CEPHALEXIN 10/08/2006 8 - GI Upset Comments: nausea Date Reviewed: 03/08/2024 Reviewed by: Laith Mccloud MD - Fully Assessed Reason for Visit: Mammogram [Other] Primary Visit Diagnosis:Breast screening [Z12.39] [facility] [[id number]] Order #: [id number] FUTURE Prescriptions as of 02/13/2025 - estradiol (MINIVELLE, VIVELLE-DOT) 0.025 mg/24 hr patch APPLY 1 PATCH EVERY THURSDAY AND THURSDAY DIRECTED - tolterodine ER (DETROL LA) 2 mg 24 hr capsule Take 1 capsule by mouth once daily. - IBUPROFEN 200 MG TAB Take 1-2 tablet's) every four(4) to six(6) hours as needed for pain. - naproxen sodium(ALEVE 220 MG TAB) as necessary Problem List As Of Date 02/13/2025 Noted Resolved EXTRAPYRAMIDAL DIS NEC [G25.89] GOITER NOS [E04.9] Pain in thoracic spine [M54.6] 12/07/2007 07/15/2016 CERVICAL DISC DEGEN [M50.30] 12/07/2007 Dysuria [R30.0] 01/11/2008 07/15/2016 Sleep disturbance, unspecified [G47.9] 04/14/2008 07/15/2016 Overweight [E66.3] 04/14/2008 12/16/2011 Routine General Medical Examination at [facility]*04/18/2008 09/27/2014 Urge incontinence [N39.41] 12/16/2011 Symptomatic menopausal or female climacteric st*10/14/2012 07/15/2016 Encounter Status:Closed by LAITH MCCLOUD on 02/13/25 Normal [facility] Bone density reportOrdered B y: Mary Redmond on 02-03-2025 Study report Skeletal system DXA [facility] Imaging Services [address] [place] [address] Dexa Bone Density Study MR#: [id number] Acct: [id number] Name: NAVYA FRANCES Rep #: [id number] : 1960 F 65 From: Tristian Rodarte MD PCP: Dr. Ajith Chung MD Status: REG CLI Study:Dexa Bone Density Study Date of Exam: 02/01/25 Exam# [id number] Ordering Dr: Tomas Chung MD PROCEDURE: DEXA BONE DENSITY STUDY 02/01/2025 REASON FOR EXAM: F, age 65 y/o . TECHNIQUE: DEXA BONE DENSITY STUDY COMPARISON: None available FINDINGS: BMD and T-SCORES Lumbar spine: 1.006 g/cm2, T-score -0.3 Levels: L1 and L4. Right femoral neck: 0.698 g/cm2, T-score -1.4 BD/Dexa Bone Density Study IMPRESSION: Patient's bone density reveals osteopenia with an estimated 10 year risk for hipfracture of 0.8% and for a Major osteoporotic fracture of 8.1%. This fracture risk estimate was calculated using FRAX version3.08. Reading Location: [id number] CC: Dr. Ajith Chung MD ~ Fitter Helper: Signed [facility] Dexa Bone Density Studyon Dexa Bone Density Study [facility] Imaging Services [address] [place], [place] [address] Dexa Bone Density Study MR#: [id number] Acct: [id number] Name: NAVYA FRANCES Rep #: [id number] : 1960 F 65 From: Mary Cuba i, MD PCP: Dr. Ajith Chung MD Status: REG CLI Study: Dexa Bone Density Study Date of Exam: 02/01/25 Exam# [id number] Ordering Dr: Ajith Chung PROCEDURE: DEXA BONE DENSITY STUDY 02/01/2025 REASON FOR EXAM: F, age 65 y/o . TECHNIQUE: DEXA BONE DENSITY STUDY COMPARISON: None available FINDINGS: BMD and T-SCORES Lumbar spine: 1.006 g/cm2, T-score -0.3 Levels: L1 and L4. Right femoral neck: 0.698 g/cm2, T-score -1.4 BD/Dexa Bone Density Study IMPRESSION: Patient's bone density reveals osteopenia with an estimated 10 year risk for hip fracture of 0.8% and for a Major osteoporotic fracture of 8.1%. This fracture risk estimate was calculated using FRAX version 3.08. Reading Location: [facility] CC: Dr. Ajith Chung MD Fitter Helper: Signed Normal [facility] Anion gap in Serum or Plasma Ordered By: Ajith Chung on 01-26-2025 Anion gap [Moles/Vol] 11 mmol/L 5-15 [facility] BUN/creatinine ratioOrdered By: Ajith Chung on 01-26-2025 Urea nitrogen/Creatinine [Mass ratio] 23.1 mg/mg High 10- [facility] Basic Metabolic Profile (BMP )on 01-26-2025 BUN/CRE 23.1 RATIO High - [facility] Comment on above: Order Comment: Order Date: 01/26/25 Order Info: [id number] - BMP Order Info: [id number] - LIPID Order Info: [id number] - TSH Performed By: #### L 500.2500, L501.9520, L500.4100 #### [facility] Laboratory [address] [place] [address]. [place], [address] Calcium [Mass/Vol] 9.5 mg/dL Normal 7.6-11.0 [facility] Comment on above: Order Comment: Order Date: 01/26/25 Order Info: [id number] - BMP Order Info: [id number] - LIPID Order Info: [id number] - TSH Performed By: #### L 500.2500, L501.9520, L500.4100 #### [facility] [address] [place], [address] Chloride [Moles/Vol] 104 mmol/L Normal 98-108 [facility] Comment on above: Order Comment: Order Date: 01/26/25 Order Info: [id number] - BMP Order Info: [id number] - LIPID Order Info: 3 - TSH Performed By: #### L 500.2500, L501.9520, L500.4100 #### [facility] [address] [place], [address] CO2 [Moles/Vol] 26.3 mmol/L Normal 21.0-32.0 [facility] Comment on above: Order Comment: Order Date: 01/26/25 Order Info: [id number] - BMP Order Info: - LIPID Order Info: 3 - TSH Performed By: #### L 500.2500, L501.9520, L500.4100 #### [facility] [address] [place], [address] Creatinine [Mass/Vol] 0.75 mg/dL Normal 0.70-1.20 [facility] Comment on above: Order Comment: Order Date: 01/26/25 Order Info: [id number] - BMP Order Info: - LIPID Order Info: 3 - TSH Performed By: #### L 500.2500, L501.9520, L500.4100 #### [facility] [address] [place], [address] GAP 11 Normal 5-15 [facility] Comment on above: Order Comment: Order Date: 01/26/25 Order Info: 666-07 - BMP Order Info: - LIPID Order Info: 3 - TSH Performed By: #### L 500.2500, L501.9520, L500.4100 #### [facility] [address] [place], [address] GFR/1.73 sq M.predicted among non-blacks MDRD (S/P/Bld) [Vol rate/Area] 88 mL/min/{1.73_m2} Normal >60 [facility] Comment on above: Order Comment: Order Date: 01/26/25 Order Info: 666-07 - BMP Order Info: - LIPID Order Info: 3015-09 - TSH Result Comment: mL/m in/1.73m2 CKD-EPI Creatinine Equation (2020) Performed By: #### L 500.2500, L501.9520, L500.4100 #### [facility] [address] [place], [address] Glucose [Mass/Vol] 87 mg/dL Normal 70-99 [facility] Comment on above: Order Comment: Order Date: 01/26/25 Order Info: 666-07 - BMP Order Info: - LIPID Order Info: 3015-09 - TSH Performed By: #### L 500.2500, L501.9520, L500.4100 #### [facility] [address] [place], [address] Potassium [Moles/Vol] 4.3 mmol/L Normal 3.3-5.1 [facility] Comment on above: Order Comment: Order Date: 01/26/25 Order Info: 666-07 - BMP Order Info: - LIPID Order Info: 3015-09 - TSH Performed By: #### L 500.2500, L501.9520, L500.4100 #### [facility] [address] [place], [address] Sodium [Moles/Vol] 141 mmol/L Normal 133-145 [facility] Comment on above: Order Comment: Order Date: 01/26/25 Order Info: 666-07 - BMP Order Info: - LIPID Order Info: [id number] - TSH Performed By: #### L 500.2500, L501.9520, L500.4100 #### [facility] [address] [place], [place], [address] Urea nitrogen [Mass/Vol] 17 mg/dL Normal 4-19 [facility] Comment on above: Order Comment: Order Date: 01/26/25 Order Info: 0667-1 - BMP Order Info: [id number] - LIPID Order Info: 3016-3 - TSH Performed By: #### L 500.2500, L501.9520, L500.4100 #### [facility] [address] [place], [address] Calculated very low density lipoprotein (VLDL) cholesterol measurementOrdered By: Ajith Chung on 01-26-2025 Calculated very low density lipoprotein (VLDL) cholesterol measurement 11 mg/dL 5-40 [facility] Carbon dioxide, total [Moles /volume] in Central venous bloodOrdered By: Ajith Chung on 01-26-2025 CO2 [Moles/Vol] 26.3 mmol/L 21.0-32.0 [facility] Chloride assayOrdered By: Marycruz Chung on 01-26-2025 Chloride [Moles/Vol] 104 mmol/L 98-108 [facility] Glomerular filtration rate ( GFR) estimation/1.73 sq m using serum, plasma, or whole bOrdered By: Ajith Chung on 01-26-2025 GFR/1.73 sq M.predicted among non-blacks MDRD (S/P/Bld) [Vol rate/Area] 88 mL/min/{1.73_m2} >60 [facility] Comment on above: mL/min/1.73m2 CKD-EP I Creatinine Equation (2020) Hemoglobin A1con 01-26-2025 HbA1c (Bld) [Mass fraction] 5.4 % Normal <=5.6 [facility] Comment on above: Order Comment: Order Date: 01/26/25 Order Info: [id number] - A1C Result Comment: Norm al < 5.7 % Prediabetic 5.7 - 6.4 % Diabetic >or= 6.5 % Please note range changes. Performed By: #### L 501.9985 #### [facility] [address] [place], [place], [address] Hemoglobin A1c percentageOrd ered By: Ajith Oroivan on 01-26-2025 HbA1c (Bld) [Mass fraction] 5.4 % <5.7 [facility] Comment on above: Normal < 5.7 % Predi abetic 5.7 - 6.4 % Diabetic >or= 6.5 % Please note range changes. LDL calc ser/plasOrdered By: Ajith Chung on 01-26-2025 Cholesterol in LDL [Mass/Vol] 68 mg/dL [facility] Comment on above: Nqieoduluh=547-369 m g/dL & Higher Ykvv=269 mg/dL or greater Lipid Profileon 01-26-2025 CHOL:HDL 1.81 Normal [facility] Comment on above: Order Comment: Order Date: 01/26/25Order Info: 666- - BMPOrder Info: [id number] - LIPIDOrder Info: [id number] - TSH Performed By: #### L 500.2500, L501.9520, L500.4100 ####[facility] [address] [place], [address] Cholesterol [Mass/Vol] 176 mg/dL Normal <=200 [facility] Comment on above: Order Comment: Order Date: 01/26/25Order Info: 666- - BMPOrder Info: [id number] - LIPIDOrder Info: [id number] - TSH Result Comment: Chol esterol level, Desirable <200 mg/dL Borderline high cholesterol 200-239 mg/dL High cholesterol >=240 mg/dL Recommendations of the NCEP Adult Treatment Panel for the following risk-cutoff thresholds for the [place] population. Performed By: #### L 500.2500, L501.9520, L500.4100 ####[facility] [address] [place], [address] Cholesterol in HDL [Mass/Vol] 98 mg/dL Normal [facility] Comment on above: Order Comment: Order Date: 01/26/25Order Info: 666-1 - BMPOrder Info: [id number] - LIPIDOrder Info: [id number] - TSH Result Comment: Arabella onal Cholesterol Education Program (NCEP) guidelines: <40 mg/dL: Low HDL-cholesterol (major risk factor for CHD) >= 60 mg/dL: High HDL-cholesterol (negative risk factor for CHD) HDL-cholesterol is affected by a number of factors, e.g. smoking, exercise, hormones, sex and age. Performed By: #### L 500.2500, L501.9520, L500.4100 ####[facility] [address] [place], [address] Cholesterol in LDL [Mass/Vol] 68 mg/dL Normal [facility] Comment on above: Order Comment: Order Date: 01/26/25Order Info: 666- - BMPOrder Info: [id number] - LIPIDOrder Info: [id number] - TSH Result Comment: Bord aziace=801-579 mg/dL Higher Zbob=947 mg/dL or greater Performed By: #### L 500.2500, L501.9520, L500.4100 ####[facility] [address] [place], [address] Cholesterol in VLDL [Mass/Vol] 11 mg/dL Normal 5-40 [facility] Comment on above: Order Comment: Order Date: 01/26/25Order Info: 666-07 - BMPOrder Info: [id number] - LIPIDOrder Info: [id number] - TSH Performed By: #### L 500.2500, L501.9520, L500.4100 ####[facility] [address] [place], [address] Triglyceride [Mass/Vol] 54 mg/dL Normal [facility] Comment on above: Order Comment: Order Date: 01/26/25Order Info: 666- - BMPOrder Info: [id number] - LIPIDOrder Info: [id number] - TSH Result Comment: The drugs N-Acetylcysteine and Metamizole may falsely depress this assay. Normal range: <150 mg/dL Borderline High: 150-199 mg/dL High: 200-499 mg/dL Very High: >500 mg/dL Performed By: #### L 500.2500, L501.9520, L500.4100 ####[facility] [address] [place], [address] Potassium measurement (mass/ volume)Ordered By: Ajith Chung on 01-26-2025 Potassium (Unsp spec) [Mass/Vol] 4.3 mmol/L 3.3-5.1 [facility] Screening total cholesterol/ high density lipoprotein (HDL) cholesterol ratioOrdered By: Ajith Chung on 01-26-2025 Cholesterol.total/Chol esterol in HDL [Mass ratio] 1.81 {ratio} [facility] Serum creatinine measurement (mass/volume)Ordered By: Ajith Chung on 01-26-2025 Creatinine [Mass/Vol] 0.75 mg/dL 0.70-1.20 [facility] Serum glucose measurement (m ass/volume)Ordered By: Ajith Chung on 01-26-2025 Glucose [Mass/Vol] 87 mg/dL 70-99 [facility] Serum or plasma calcium ashley urement (mass/volume)Ordered By: Ajith Chung on 01-26-2025 Calcium [Mass/Vol] 9.5 mg/dL 7.6-11.0 [facility] Serum or plasma cholesterol in HDL measurement (mass/volume)Ordered By: Ajith Chung on 01-26-2025 Cholesterol in HDL [Mass/Vol] 98 mg/dL >40 [facility] Comment on above: National Cholesterol Education Program (NCEP) guidelines:<40 mg/dL: Low HDL-cholesterol (major risk factor for CHD)>= 60 mg/dL: High HDL-cholesterol (negative risk factor for CHD)HDL-cholesterol is affected by a number of factors, e.g. smoking, exercise, hormones, sex and age. Serum or plasma cholesterol measurement (mass/volume)Ordered By: Ajith Chung on 01-26-2025 Cholesterol [Mass/Vol] 176 mg/dL <201 [facility] Comment on above: Cholesterol level, D esirable <200 mg/dLBorderline high cholesterol 200-239 mg/dLHigh cholesterol >=240 mg/dLRecommendations of the NCEP Adult Treatment Panel for the following risk-cutoff thresholds for the [place] population. Serum or plasma urea nitroge n measurement (mass/volume)Ordered By: Ajith Chung on 01-26-2025 Urea nitrogen [Mass/Vol] 17 mg/dL 4-19 [facility] Sodium levelOrdered By: Shawna morteza Juliet on 01-26-2025 Sodium [Moles/Vol] 141 mmol/L 133-145 [facility] TSH DL <= 0.005 mIU/L QnOrde red By: Ajith Chung on 01-26-2025 TSH Qn 1.400 uIU/mL 0.300-4.200 [facility] Thyroid Stim Hormone (TSH)on 01-26-2025 TSH 1.400 uIU/mL Normal 0.300-4.200 [facility] Comment on above: Order Comment: Order Date: 01/26/25Order Info: [id number] - BMPOrder Info: [id number] - LIPIDOrder Info: [id number] - TSH Performed By: #### L 500.2500, L501.9520, L500.4100 ####[facility] [address] [place], [address] Triglycerides measurementOrd ered By: Ajith Chung on 01-26-2025 Triglyceride [Mass/Vol] 54 mg/dL <199 [facility] Comment on above: The drugs N-Acetylcy steine and Metamizole may falsely depress this assay. Normal range: <150 mg/dLBorderline High: 150-199 mg/dLHigh: 200-499 mg/dLVery High: >500 mg/dL Vitamin D,25 Hydroxyon 01-26 Vitamin D 25-OH 73.9 ng/mL Normal 30-100 [facility] Comment on above: Order Comment: Order Date: 01/26/25Order Info: 06 - BMPOrder Info: [id number] - LIPIDOrder Info: [id number] - TSH Result Comment: Sherry min D Status Deficiency: <20 ng/mL (50nmol/L) Insufficiency: 20-30 ng/mL (50-75 nmol/L) Sufficiency: 30-100 ng/mL (75-250 nmol/L) Toxicity: >100 ng/mL (>250 nmol/L) Performed By: #### L 506.1001 ####[facility] [address] [place], [address] Gastroenterology Visit Repor ton 01-18-2025 Gastroenterology Visit Report [facility] Gastroenterology [address] [place] [address] OFFICE VISIT Date of Service: 01/18/25 MR#: [id number] Acct: [id number] Name: NAVYA FRANCES Rep #: [id number] : 1960 Provider: Omar Shi DO Age/Sex: 64/F [place] [facility] [place] Status: Signed Intake Vital Signs 08/19/24 07:57 12/14/24 11:50 Height 5 ft 3.5 in 5 ft 3.5 in Intake Visit Reasons: 3 M FU Allergies Penicillins Allergy (Mild, Verified 12/14/24 11:50) unknown Medications ???Medication ???Instructions ???Recorded ???Confirmed ???Type estradiol 0.025 mg/24 hr 1 patch transdermal MOTH 09/05/22 01/18/25 History semiweekly transdermal patch linaclotide 290 mcg capsule 290 mcg PO BID #60 caps 01/18/25 0 01/18/25 Rx (Linzess) Have you fallen in the past year?: No PFSH Medical History Wears glasses Wears contact lenses Post-menopausal Alcohol use Easy bruising Restless legs Non-smoker Surgical History (Updated 12/01/24 @ 11:43 by Kary Leonard) Hx of colonoscopy H/O: hysterectomy Social History household members: none [...] was told to repeat in 10 years. GET 5.5.25 abnormal OV 7.9.25 pt reports continued constipation, stopped taking Linzess about a month ago, stated it was no longer helping. Pt reports that she is using suppositories. pt reports she has tried amitiza, but that this upset her stomach. ROS Const Constitutional: No fatigue, fever(s) or weight change ENT ENT: No difficulty swallowing Gastro GI: Positive for change in bowel habits and constipation; No abdominal pain, belching, bloating, change in stool character, coffee ground emesis, cramping, diarrhea, heartburn, difficulty swallowing, feeling full early, excessive flatus, incontinent of stools, Vomiting blood/hematemesis, Blood in stool, loose stools, Black,tarry stools, nausea/dyspepsia, pain with swallowing, vomiting or other Musc Musculoskeletal: Positive for restless legs; No joint pain Skin Skin: No yellowing of the eye or itchy eyes Neuro Neurology: Positive for restless legs Psych Psychiatric: No anxiety and No depression Endo Endocrine: No fatigue or weight change Aller/Imm Allergy/Immunologic: No itchy eyes Jared/Lymp Hematologic/Lymphatic: No easy bleeding or easy bruising Exam Const General: cooperative and comfortable Nutritional Appearance: average body habitus and well nourished [facility] Head: normal to inspection Ears: hearing [...] of constipation. SHe has had constipation for a (more content not included)... Normal [facility] Plastic Surgery Visit Report on 12-23-2024 Plastic Surgery Visit Report [facility] Plastic Reconstructive Surgery [address], [address] [place] [address] OFFICE VISIT Date of Service: 12/23/24 MR#: [id number] Acct: [id number] Name: NAVYA FRANCES Rep #: [id number] : 1960 Provider: Dr. Samm Wallis MD Age/Sex: 64/F Location: [facility] Status: Signed Intake Vital Signs 3 12/14/24 11:50 Height 5 ft 3.5 in Intake Visit Reasons: POST OP Chief Complaint: lipoma/cyst Allergies Penicillins Allergy (Mild, Verified 12/14/24 11:50) unknown Have you fallen in the past year?: No Subjective Details: The patient is a 64-year-old female presenting with a follow-up for postoperative care of a left shoulder incision following lipoma excision. Originally excised on December 14, the lipoma has been identified as benign upon pathologic examination. The patient has refrained from activities like heavy lifting to avoid complicating the healing process. Notably, there were no signs of infection or fluid collection at the incision site. The patient's adherence to postoperative care instructions has contributed to favorable healing outcomes. Silicone tape for scar improvement and the importance of sunscreen application were recommended for ongoing management. The patient is advised to avoid heavy lifting for an additional three weeks to continue supporting optimal healing. The incision appearance is satisfactory, signaling effective postoperative recovery. Attestation: Documentation on this patient encounter was supported using ambient scribe technology/ voice AI technology. The patient consented to recording for the purpose of documenting the encounter. Provider reviewed content of the generated note prior to signature. Objective Details: - Skin: Reports minor irritation; denies significant itching. - Musculoskeletal: Denies joint pain or stiffness. - General: Denies fever or chills. PHYSICAL EXAM - Skin- Left shoulder incision is clean, dry, and intact with no signs of infection or fluid collection. One residual suture tail noted. Suture tail removed. - Musculoskeletal- No signs of swelling or abnormal fluid accumulation over the left shoulder observed. Coding Level of Care Code Global Post Op Diagnoses Mass of shoulder region R22.30 [facility] Medical History Wears glasses Wears contact lenses Post-menopausal Alcohol use Easy bruising Restless legs Non-smoker Surgical History (Updated 12/01/24 @ 11:43 by Kary Leonard) Hx of colonoscopy H/O: hysterectomy Social History household members: none Smoking Status: Never smoker alcohol intake: current alcohol intake frequency: 0-2 drinks per day Assessment and Plan (No Qualifiers) Assessment and Plan (1) Mass of shoulder region: Status: Acute Comment: Left shoulder Excised December 2024, consistent with benign lipoma Plan 1. Lipoma of the left shoulder Pathologic assessment confirmed a benign lipoma. The incision is healing well, and ongoing postoperative care will focus on minimizing scarring with silicone tape. 2. Postoperative care of left shoulder incision Incision healing is progressing favorably. Restriction of heavy lifting is advised for three more weeks, and application of sunscreen is recommended for scar care. Plan Details Additional Comments: - Avoid heavy lifting for the next three weeks to support healing of the incision. - Use a small amount of adhesive remover to clean residual tape stickiness off the skin. - Apply silicone tape to the incision area to minimize scarring, possibly sourcing it online. - Protect the incision site with sunscreen to prevent darkening of the scar when exposed to sunlight. - Monitor the incision for any signs of infection or unusual changes. Contact me if you notice any concerning signs. - No golfing or similar activities until further healing allows, except for putting which is permissible. 12/23/24 0848 Date [facility]: Date (if applicable) CC: Normal [facility] Plastic Surgery Visit Report on 12-16-2024 Plastic Surgery Visit Report [facility] Plastic Reconstructive Surgery [address] [place] [address] OFFICE VISIT Date of Service: 12/15/24 MR#: [id number] Acct: [id number] Name: NAVYA FRANCES Rep #: [id number] : 1960 Provider: Dr. Samm Wallis MD Age/Sex: 64/F Location: [facility] Status: Signed Intake Vital Signs 12/14/24 11:50 Height 5 ft 3.5 in Intake Visit Reasons: POST OP Chief Complaint: lipoma/cyst Allergies Penicillins Allergy (Mild, Verified 12/14/24 11:50) unknown Have you fallen in the past year?: No Subjective Details: Concern today for some drainage. Came to the office for assessment Objective Details: Prineo tape clean dry and intact at this point. Drainage has stopped. Incision is flat and healthy appearing with no signs of fluid collections underneath Coding Level of Care Code Global Post Op Diagnoses Mass of shoulder region R22.30 [facility] Medical History Wears glasses Wears contact lenses Post-menopausal Alcohol use Easy bruising Restless legs Non-smoker Surgical History (Updated 12/01/24 @ 11:43 by Kary Leonard) Hx of colonoscopy H/O: hysterectomy Social History household members: none Smoking Status: Never smoker alcohol intake: current alcohol intake frequency: 0-2 drinks per day Assessment and Plan (No Qualifiers) Assessment and Plan (1) Mass of shoulder region: Status: Acute Comment: Left shoulder Plan: Expected course thus far Discussed return precautions Follow-up in 1 week 12/16/24 0737 Date [facility]: Date (if applicable) CC: Normal [facility] H AND P Exam - Surgicalon H&P Exam - Surgical [facility] Medical Records Department [address] [place] [address] H P Exam - Surgical 12/14/24 1232 MR#: [id number] Acct: [id number] Name: NAVYA FRANCES Rep #: [id number] : 1960 64 From: Samm Wallis MD PCP: Dr. Ajith Chung MD Status:[facility] Location: [place] [address] HPI - General HPI Narrative Navya Frances is a delightful 64-year-old female [...] have diabetes. She is not a smoker. Current Encounter (DATE OF SURGERY H P UPDATE): I saw and examined the patient this morning in pre- operative holding. We discussed risks and benefits of today's surgery and they would like to proceed. NO CHANGE in health history since last seen and evaluated. Ready to proceed with [facility]. [facility] History Wears glasses Wears contact lenses Post-menopausal Alcohol use Easy bruising Restless legs Non-smoker Home Medications ???Medication ???Instructions ???Recorded ???Last Taken ???Type estradiol 0.025 mg/24 hr 1 patch transdermal MOTH 09/05/22 12/14/24 History semiweekly transdermal patch linaclotide 290 mcg capsule 290 mcg PO QODAY 12/01/24 12/13/24 History (Linzess) Allergy/AdvReac Type Severity Reaction Status Date / Time Penicillins Allergy Mild unknown Verified 12/14/24 11:50 Surgical History (Updated 12/01/24 @ 11:43 by Kary Leonard) Hx of colonoscopy H/O: hysterectomy Social History household members: none Smoking Status: Never smoker alcohol intake: current alcohol intake frequency: 0-2 drinks per day Vital Signs Vital Signs Vital Signs: 12/14/24 11:50 12/14/24 11:50 12/14/24 12:29 Temperature 97.4 F L 97.4 F L Temperature Source Temporal Pulse Rate 65 65 Respiratory Rate 16 16 Respiratory Pattern Normal Blood Pressure 138/91 H 138/91 H Blood Pressure Mean 106 Blood Pressure Source Monitor Blood Pressure Position Semi-Fowlers Blood Pressure Location Right Arm Pulse Ox 100 100 Oxygen Delivery Method Room Air Room Air Weight Weight: 127 lb 13.89 oz Body Mass Index (BMI) 22.3 Physical Exam Narrative 4 X 4.5 cm mobile left anterior shoulder mass/anterior proximal arm Feels like it's in the subcutaneous tissues Assessment Plan Assessment/Plan (1) Mass of shoulder region: PLAN: Plan I talked to the patient extensively [...] for insurance prior authorization are as follows: [id number], [id number] INTERVAL H P PLAN, DATE OF SURGERY: We will proceed with surgery today. US reassuring of lipoma. Plan for excision. I marked it with her in preop holding and she was in agreement with the site marking. We discussed the above noted risks, benefits, and alternatives to today's procedure. 12/14/24 1239 Cosigner Signature (if applicable): CC: Dr. Ajith Chung MD; Dr. Samm Wallis MD Signed Normal [facility] MR/POSTOP.ANEon 12-14-2024 MR/POSTOP.[facility] Medical Records Department [address] [place] [address] Anesthesia Postop Eval I 12/14/24 1330 MR#: [id number] Acct: [id number] Name: NAVYA FRANCES Rep #: [id number] : 1960 64 From: Keena Sauer CRNA PCP: Dr. Ajith Chung MD Status:[facility] Y Race: C Location: [place] [address] Anesthesia: Postop Eval I Current Vital Signs Temperature: 97.4 F Pulse Rate: 79 Blood Pressure: 92/61 Respiratory Rate: 16 Pulse Ox: 98 Oxygen Delivery Method: Room Air Assessment Airway patent: Yes Spontaneous unlabored respirations: Yes Mental status: Awake and Calm nausea: No Vomiting: No Anesthesia Complication: No Fluid Hydration Crystalloid volume administer (ml): 600 Total IV fluid infused: 600 Progress Note Anesthesia document: Postop Eval 1 completed: Yes 12/14/24 1330 Date Keena Rick Signature: Date CC: Signed Normal [facility] MR/PMJVWJND1mr 12-14-2024 MR/POSTOPAN2 [facility] Medical Records Department [address] [place] [address] Anesthesia Postop Eval II 12/14/24 1542 MR#: [id number] Acct: [id number] Name: NAVYA FRANCES Rep #: [id number] : 1960 64 From: Cortes Hernandez MD PCP: Dr. Ajith Chung MD [place] [place] [facility] [place] C [place] [facility] [place]esthesia Postop Eval I Sum Postop Eval Completion status Anesthesia document: Postop Eval 1 completed: Yes Anesthesia Postop Eval I Summary Anesthesia Postop Eval I Summary: Anesthesia Postop Eval I: Assessment Summary Airway patent Yes 12/14/24 13:30 RN INTENSIVE CARE UNIT.GDOTT Spontaneous unlabored Yes 12/14/24 13:30 RN [facility] CARE UNIT.[facility] respirations Mental status Awake,Calm 12/14/24 13:30 RN INTENSIVE CARE UNIT.[facility] nausea No 12/14/24 13:30 RN INTENSIVE CARE UNIT.[facility]OTT Vomiting No 12/14/24 13:30 RN INTENSIVE CARE UNIT.[facility]OTT Anesthesia Postop Eval I: Fluid Summary Crystalloid volume administer 600 12/14/24 13:30 RN INTENSIVE CARE UNIT.GDOTT (ml) Colloids volume administered ( ml) Blood Product volume administered (ml) Total IV fluid infused 600 12/14/24 13:30 RN INTENSIVE CARE UNIT.GDOTT Anesthesia Postop Eval I: Summary Notes Anesthesia Complication No 12/14/24 13:30 RN INTENSIVE CARE UNIT.GDOTT Anesthesia Complication Comment: Post-operative progress note Anesthesia: Postop Eval II Evaluation Mental status: Awake Pain Level: 0 nausea: No Vomiting: No Complications Anesthesia Complication: No 12/14/24 1542 Date Cortes Hernandez MD Cosigner Signature: Date CC: Signed Normal [facility] Operative Reporton Operative Report [facility] Medical Records Department [address] [place] [address] Operative Report 12/14/24 1710 MR#: [id number] Acct: [id number] Name: NAVYA FRANCES Rep #: [id number] : 1960 64 From: Samm Wallis MD PCP: Dr. Ajith Chung MD Status:[place] [facility] [place] [facility] [place]ative Report (Standard) Operative Information Date of Procedure: 12/14/24 Pre-Operative Diagnosis: Left anterior shoulder/arm mass Post-Operative Diagnosis: Same Surgery/Procedure Performed: 1) Excision of left anterior shoulder/arm mass, 3.7 x 3 cm (CPT 78856) 2) Intermediate closure of left shoulder wound, 4 cm (CPT 38517) holder pile driving: Yes Market Research Analyst: Sohan Travis Tasks completed by front end assistant: Retracting Type of Anesthesia: MAC/Supplemental (20 cc of 50-50 mixture of 1% lidocaine with 1-200,000 epinephrine and quarter percent Marcaine with 1-200,000 epinephrine) RN Documented Start/Stop Times: Operation Date: 12/14/24 13:00 Case Time Into Pre-Op 12/14/24 11:33 Out of Pre-Op 12/14/24 12:42 Anesthesia Start 12/14/24 12:48 Into Room 12/14/24 12:48 Procedure Start 12/14/24 13:04 Procedure End 12/14/24 13:20 Anesthesia End 12/14/24 13:27 Out of Room 12/14/24 13:27 Into Recovery 12/14/24 13:30 Into Phase II Recovery 12/14/24 13:52 Out of Phase II 12/14/24 14:20 Procedure Start Time: 13:04 Procedure Stop Time: 13:20 Select all DRAINS/GRAFTS/IMPLANTS that apply: None Estimated Blood Loss: Minimal Specimen collected: Yes Description of specimen(s) removed: Left shoulder mass Description of surgery: Indications: Navya Frances is a delightful 64-year-old female with a left shoulder mass she understands the risk benefits and alternatives of excision and presents today for removal. Ultrasound demonstrated likely lipoma. Procedure details: Patient was correctly identified in preoperative holding and I marked the mass with her. She was in agreement with the site marking. He was taken back to the operating room where she was administered sedation and local anesthesia as noted above. She was placed in the supine position through the procedure. Anesthesia was given time to take effect and she was prepped and draped in sterile fashion. A timeout was performed. Using a 15 blade scalpel, a direct longitudinal incision was made over the left anterior shoulder mass and careful dissection with tenotomy scissors was taken around the capsule of the well- circumscribed fatty mass. Hemostasis was obtained with Bovie electrocautery during dissection, and the mass was removed in a single piece and sent to pathology. It measured 3.7 x 3 cm. Hemostasis was obtained with Bovie electrocautery and the wound was washed with copious amounts normal saline. The wound was then closed with 3-0 Monocryl deep dermal suture followed by 3-0 Monocryl running subcuticular suture for 4 cm intermediate closure. Prineo tape was applied over the incision. Patient was awakened and taken the PACU in stable condition and tolerated the procedure well. Surgical Findings: Left shoulder mass consistent with lipoma (fatty tissue) Complications Complications: No 12/14/24 1575 Cosigner Signature (if applicable): CC: Dr. Ajith Chung MD; Dr. Samm Wallis MD Signed Normal [facility] Surgery Specimen Level IIIon 12-14-2024 Surgery Specimen Level III ---- Patient Age/Sex Location Account Attending Physician ---- NAVYA FRANCES 64/[place] [facility] [id number]. Samm Wallis MD ---- Specimen: [id number] Received: 12/14/24 Status: HARMONY Nunez Num: [id number] Spec Type: Mass Subm Dr: Dr. Samm Wallis MD HEADER OPERATION: Excision left shoulder mass PRE-OP DIAGNOSIS: Mass of shoulder region TISSUE SUBMITTED: A- Left shoulder lipoma ---- MICROSCOPIC DIAGNOSIS A. Left shoulder, mass, excision: * Mature adipose consistent with lipoma. MICROSCOPIC DESCRIPTION Slides are reviewed. GROSS DESCRIPTION A. Received in formalin in a container labeled with the patient's name, date of , and left shoulder lipoma is an unoriented and thinly encapsulated portion of diamond-yellow adipose tissue measuring 5.0 x 3.0 x 1.3 cm and 7.5 g. The outer surface is inked green, and serial sections reveal homogenous diamond-yellow surfaces with no hemorrhage or necrosis identified. 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 [facility] 12-14-2024 CPT:63449 ---- Patient Age/Sex Location Account Attending Physician ---- NAVYA FRANCES 64/[place] [facility] [id number] Dr. Samm Wallis MD ---- Signed (signature on file) Dr. Kamille Rapp MD 12/19/24 1249 ---- Normal [facility] Comment on above: Performed By: #### P SUIII ####[facility] [address] [facility] [place], [place], [address] Ext Non Vasc Limited/Soft Ti sson 11-23-2024 Ext Non Vasc Limited/Soft Tiss [facility] Imaging Services [address] [place], [place] [address] Ext Non Vasc Limited/Soft Tiss MR#: [id number] Acct: [id number] Name: NAVYA FRANCES Rep #: [id number] : 1960 F 64 From: Patrick dangelo MD PCP: Dr. Ajith Chung MD Status: [facility] Study: Ext Non Vasc Limited/Soft Tiss Date of Exam: 0 11/23/24 Exam# [id number] Ordering Dr: Samm Wallis MD PROCEDURE: EXT [...] most likely represents a lipoma. Reading Location: [id number] CC: Dr. Ajith Chung MD; Dr. Samm Wallis MD Fitter Helper: Signed Normal [facility] Gastric Emptying Studyon Gastric Emptying Study [facility] Imaging Services [address] [place], [place] [address] Gastric Emptying Study MR#: [id number] Acct: [id number] Name: NAVYA FRANCES Rep #: [id number] : 1960 F 64 From: Reilly Lee PCP: Dr. Ajith Chung MD Status: REG CLI Study: Gastric Emptying Study Date of Exam: 11/11/24 Exam# [id number] Ordering Dr: Omar Shi DO PROCEDURE: GASTRIC EMPTYING STUDY 11/11/2024 REASON FOR EXAM: BLOATING COMPARISON: None. TECHNIQUE: The patient ingested a standard meal of cooked oatmeal was ingested. There was no vomiting postprandially. Imaging for a total of 1 hour was obtained. Regions of interest were drawn, and a geometric mean was used to calculate a rvas-dhkhfoza-nntvi. Medications taken in the past 24 hours [...] semi solid phase gastric emptying. Reading Location: [facility] CC: Dr. Ajith Chung MD; Omar Shi DO Fitter Helper: Signed Normal [facility] Plastic Surgery Visit Report on 11-11-2024 Plastic Surgery Visit Report [facility] Plastic Reconstructive Surgery [address] [facility], [address] [place] [address] OFFICE VISIT Date of Service: 11/11/24 MR#: [id number] Acct: [id number] Name: NAVYA FRANCES Rep #: [id number] : 1960 Provider: Dr. Samm Wallis MD Age/Sex: 64/F [place] [facility] [place] [place] Status: Signed Intake Vital Signs 3 08/19/24 [...] for insurance prior authorization are as follows: 11271, 35058 Clinical Quality Measures Falls Risk Screening/Assistive Devices Have you fallen in the past year?: No 11/11/24 1639 Date Samm Rick Signature: Date (if applicable) CC: Normal [facility] Gastroenterology Visit Repor ton 10-19-2024 Gastroenterology Visit Report [facility] Gastroenterology [address] [place] [address] OFFICE VISIT Date of Service: 10/19/24 MR#: [id number] Acct: [id number] Name: NAVYA FRANCES Rep #: [id number] : 1960 Provider: Omar Shi DO Age/Sex: 64/F [place] [facility] [place] [place] Status: Signed Intake Vital Signs 08/19/24 07:57 [...] Appearance: average body habitus and well nourished [facility] Head: normal to inspection Ears: hearing [...] some bloating. (more content not included)... Normal [facility] Laboratory - Chemistry and C hemistry - challengeOrdered By: Kojo Naidu on 08-19-2024 Bilirubin Ql (U) Negative [facility] Glucose Ql (U) Negative [facility] Ketones Ql (U) Trace (5) [facility] pH (U) 5.0 [pH] [facility] Specific gravity (U) [Rel density] 1.010 [facility] Urobilinogen (U) [Mass/Vol] 1 mg/dL [facility] Laboratory - Hematology and Cell countsOrdered By: Kojo Naidu on 08-19-2024 Hemoglobin Ql (U) Negative [facility] Laboratory - Specimen inform ationOrdered By: Kojo Naidu on 08-19-2024 Clarity (U) Clear [facility] Color (U) YELLOW [facility] Laboratory - UrinalysisOrder ed By: Kojo Naidu on 08-19-2024 Nitrite Ql (U) Negative [facility] Protein Ql (U) Negative [facility] No Panel InformationOrdered By: Kojo Naidu on 08-19-2024 Urine Leukocytes Negatve [facility] Urine Non-Hemolyzed Blood Negative [facility] Urgent Care Visit Reporton 0 08-19-2024 Urgent Care Visit Report [facility] [address] , [address] [place] [address] OFFICE VISIT Date of Service: 08/19/24 MR#: [id number] Acct: [id number] Name: NAVYA FRANCES Rep #: [id number] : 1960 Provider: NATALIE Stone Age/Sex: 64/F [place] [facility] Status: Signed Intake Vital Signs 04/23/24 [...] and frequency with urination for a week. PFSH Surgical History H/O: hysterectomy Social History [...] MA on 08/19/24 08:08 Off Ur Spec Palmetto 1.010 Last Edit by Francheska Snow MA [...] Rick Signature: Date (if applicable) CC: Normal [facility] Abdomen Single Viewon 2023 Abdomen Single View [facility] Imaging Services [address] [place] [address] Abdomen Single View MR#: [id number] Acct: [id number] Name: NAVYA FRANCES Rep #: [id number] : 1960 F 64 From: Merly Ruiz MD PCP: Dr. Ajith Chung MD Status: [facility] Study: Abdomen Single View Date of Exam: 05/21/24 Exam# [id number] Ordering Dr: Maryann Chavis [id number] INDICATION: sitz marker day 5 EXAMINATION/TECHNIQUE: X-RAY [...] CC: Dr. Ajith Chung MD; NATALIE Beckett Fitter Helper: Signed Normal [facility] Abdomen Single Viewon 2023 Abdomen Single View [facility] Imaging Services [address] [place] [address] Abdomen Single View MR#: [id number] Acct: [id number] Name: NAVYA FRANCES Rep #: [id number] : 1960 F 64 From: Jorge spaulding MD PCP: Dr. Ajith Chung MD Status: REG [facility] Study: Abdomen Single View Date of Exam: 05/19/24 Exam# [id number] Ordering Dr: Maryann Chavis [id number] INDICATION: sitz marker day 3 EXAMINATION/TECHNIQUE: X-RAY [...] CC: Dr. Ajith Chung MD; NATALIE Beckett Fitter Helper: Signed Normal [facility] Culture, urineOrdered By: Marycruz Pires on 04-21-2023 Bacteria identified Cx Nom (U) Presumptive E. coli [facility] SEBAS SCREENING W TOMOon 04-03 [facility] Basophil percentageOrdered B y: Blanca Torres on 01-08-2023 Chloride [Moles/Vol] 105 mmol/L 98-107 [facility] Cholesterol [Mass/Vol] 180 mg/dL <200 [facility] Comment on above: <200 mg/dL Desirable 200-240 mg/dL Borderline >240 mg/dL High Risk Glucose [Mass/Vol] 85 mg/dL 74-106 [facility] Potassium [Moles/Vol] 4.1 mmol/L 3.5-5.1 [facility] Sodium [Moles/Vol] 139 mmol/L 136-145 [facility] Triglyceride [Mass/Vol] 36 mg/dL <199 [facility] Comment on above: The drugs N-Acetylcy steine and Metamizole may falsely depress this assay.Serum Triglycerides Reference Interval Normal <150 mg/dL Borderline high 150 - 199 mg/dL High 200 - 499 mg/dL Very High > or = 500 mg/dL WBC (Bld) [#/Vol] 5.2 10*3/uL 4.4-11.0 [facility] Blood erythrocytes count (nu mber/volume)Ordered By: Blanca Torres on 01-08-2023 RBC (Bld) [#/Vol] 4.63 10*6/uL 4.2-5.4 [facility] Blood hemoglobin measurement (mass/volume)Ordered By: Blanca Torres on 01-08-2023 Hemoglobin (Bld) [Mass/Vol] 14.4 g/dL 12.0-15.0 [facility] Blood platelet mean volumeOr dered By: Blanca Torres on 01-08-2023 Platelet mean volume (Bld) [Entitic vol] 9.5 fL 6.2-12.0 [facility] Determination of erythrocyte mean corpuscular volume (MCV)Ordered By: Blanca Torres on 01-08-2023 MCV (RBC) [Entitic vol] 95.2 fL 81-99 [facility] Hematocrit Auto (Bld) [Volum e fraction]Ordered By: Blanca Torres on 01-08-2023 Hematocrit (Bld) [Volume fraction] 44.1 % 37-47 [facility] Laboratory - Chemistry and C hemistry - challengeOrdered By: Blanca Torres on 01-08-2023 CO2 [Moles/Vol] 29.0 mmol/L 21.0-32.0 [facility] Urea nitrogen/Creatinine [Mass ratio] 17.9 mg/mg 10-20 [facility] Laboratory - Hematology and Cell countsOrdered By: Blanca Torres on 01-08-2023 Erythrocyte distribution width (RBC) [Entitic vol] 41.1 fL 35.1-43.9 [facility] Erythrocyte distribution width (RBC) [Ratio] 11.9 % 11.6-14.6 [facility] MCH (RBC) [Entitic mass] 31.1 pg 27.0-32.0 [facility] MCHC Auto (RBC) [Mass/Vol]Or dered By: Blanca Torres on 01-08-2023 MCHC (RBC) [Mass/Vol] 32.7 g/dL 32-36 [facility] No Panel InformationOrdered By: Blanca Torres on 01-08-2023 Estimated GFR (MDRD) Amer 95 mL/min >60 [facility] Comment on above: GFR Calc Estimated GFR (MDRD) Non-Af Amer 79 mL/min >60 [facility] Comment on above: Non- GFR Calc Thyroid Stimulating Hormone (TSH) 1.49 uIU/mL 0.358-3.74 [facility] Platelets bldOrdered By: Paula Torres on 01-08-2023 Platelets (Bld) [#/Vol] 281 10*3/uL 150-450 [facility] Serum or plasma calcium ashley urement (mass/volume)Ordered By: Blanca Torres on 01-08-2023 Calcium [Mass/Vol] 9.1 mg/dL 8.5-10.1 [facility] Serum or plasma cholesterol in HDL measurement (mass/volume)Ordered By: Blanca Torres on 01-08-2023 Cholesterol in HDL [Mass/Vol] 108 mg/dL >40 [facility] Comment on above: The drugs N-Acetylcy steine and Metamizole may falsely depress this assay. Reference Range HDL <40 mg/dL Low HDL Cholesterol HDL >or= 60 mg/dL High HDL Cholesterol Serum or plasma cholesterol in VLDL measurement (mass/volume)Ordered By: Blanca Torres on 01-08-2023 Cholesterol in VLDL [Mass/Vol] 7 mg/dL 5-40 [facility] Serum or plasma creatinine m easurement (mass/volume)Ordered By: Blanca Torres on 01-08-2023 Creatinine [Mass/Vol] 0.78 mg/dL 0.55-1.02 [facility] Comment on above: The validity of the calculated GFR & GFRAA in patients over 70 years has not been determined. Clinical correlation is essential. Serum or plasma low density lipoprotein (LDL) cholesterol measurement (mass/volume)Ordered By: Blancamaicol Torres on 01-08-2023 Cholesterol in LDL [Mass/Vol] 65 mg/dL 0-130 [facility] Serum or plasma urea nitroge n measurement (mass/volume)Ordered By: Blancamaicol Torres on 01-08-2023 Urea nitrogen [Mass/Vol] 14 mg/dL 7-18 [facility] Thin prep Papanicolaou smear with manual screeningOrdered By: Blancamaicol Torres on 01-08-2023 Thin prep Papanicolaou smear with manual screening 5 5-15 [facility] Basophil percentageon 2021 Chloride [Moles/Vol] 104 mmol/L 98-107 [facility] Work Phone: Cholesterol [Mass/Vol] 191 mg/dL <200 [facility] Work Phone: Comment on above: <200 mg/dL Desirable 200-240 mg/dL Borderline >240 mg/dL High Risk Glucose [Mass/Vol] 95 mg/dL 74-106 [facility] Work Phone: Potassium [Moles/Vol] 4.0 mmol/L 3.5-5.1 [facility] Work Phone: Sodium [Moles/Vol] 138 mmol/L 136-145 [facility] Work Phone: Triglyceride [Mass/Vol] 69 mg/dL <199 [facility] Work Phone: Comment on above: The drugs N-Acetylcy steine and Metamizole may falsely depress this assay.Serum Triglycerides Reference Interval Normal <150 mg/dL Borderline high 150 - 199 mg/dL High 200 - 499 mg/dL Very High > or = 500 mg/dL Laboratory - Chemistry and C hemistry - challengeon 02-20-2022 CO2 [Moles/Vol] 28.0 mmol/L 21.0-32.0 [facility] Work Phone: Urea nitrogen/Creatinine [Mass ratio] 15.4 mg/mg 10-20 [facility] Work Phone: No Panel Informationon 02-20 Estimated GFR (MDRD) Amer 96 mL/min >60 [facility] Work Phone: Comment on above: GFR Calc Estimated GFR (MDRD) Non-Af Amer 79 mL/min >60 [facility] Work Phone: Comment on above: Non- GFR Calc Serum or plasma calcium ashley urement (mass/volume)on 02-20-2022 Calcium [Mass/Vol] 9.2 mg/dL 8.5-10.1 [facility] Work Phone: Serum or plasma cholesterol in HDL measurement (mass/volume)on 02-20-2022 Cholesterol in HDL [Mass/Vol] 105 mg/dL >40 [facility] Work Phone: Comment on above: The drugs N-Acetylcy steine and Metamizole may falsely depress this assay. Reference Range HDL <40 mg/dL Low HDL Cholesterol HDL >or= 60 mg/dL High HDL Cholesterol Serum or plasma cholesterol in VLDL measurement (mass/volume)on 02-20-2022 Cholesterol in VLDL [Mass/Vol] 14 mg/dL 5-40 [facility] Work Phone: Serum or plasma creatinine m easurement (mass/volume)on 02-20-2022 Creatinine [Mass/Vol] 0.78 mg/dL 0.55-1.02 [facility] Work Phone: Comment on above: The validity of the calculated GFR & GFRAA in patients over 70 years has not been determined. Clinical correlation is essential. Serum or plasma low density lipoprotein (LDL) cholesterol measurement (mass/volume)on 02-20-2022 Cholesterol in LDL [Mass/Vol] 72 mg/dL 0-130 [facility] Work Phone: Serum or plasma urea nitroge n measurement (mass/volume)on 02-20-2022 Urea nitrogen [Mass/Vol] 12 mg/dL 7-18 [facility] Work Phone: Thin prep Papanicolaou smear with manual screeningon 02-20-2022 Thin prep Papanicolaou smear with manual screening 6 5-15 [facility] Work Phone: Vital Signs Date Time Vital Sign Value Performing Clinician Arlene norton 03-10-2025 08:51-0400 Body height 161.3 cm Laith Mccloud MD Work Phone: [facility] 03-10-2025 08:51-0400 Body mass index (BMI) [Ratio] 22.32 kg/m2 Laith Mccloud MD Work Phone: [facility] 03-10-2025 08:51-0400 Body weight 58.06 kg Laith Mccloud MD Work Phone: [facility] 03-10-2025 08:51-0400 Diastolic blood pressure 78 mm[Hg] Laith Mccloud MD Work Phone: [facility] 03-10-2025 08:51-0400 Systolic blood pressure 106 mm[Hg] Laith Mccloud MD Work Phone: [facility] 12-14-2024 13:40-0400 Body temperature 97.8 [degF] Dr. Ajith Chung MD Work Phone: [facility] 12-14-2024 13:40-0400 Diastolic blood pressure 70 mm[Hg] Dr. Ajith Chung MD Work Phone: [facility] 12-14-2024 13:40-0400 Heart rate 72 /min Dr. Ajith Chung MD Work Phone: 7(182)466-022780 [place] [address] 12-14-2024 13:40-0400 Respiratory rate 16 /min Dr. Ajith Chung MD Work Phone: 7(642)470-675516 [place] [address] 12-14-2024 13:40-0400 SaO2% (BldA) [Mass fraction] 97 % Dr. Ajith Chung MD Work Phone: 6(769)858-737680 [place] [address] 12-14-2024 13:40-0400 Systolic blood pressure 91 mm[Hg] Dr. Ajith Chung MD Work Phone: 6(227)848-278480 [place] [address] 12-14-2024 11:50-0400 Body height 161.[address] Ajith Chung MD Work Phone: 4(265)896-159816 [place] [address] 12-14-2024 11:50-0400 Body mass index (BMI) [Ratio] 22.3 kg/m2 Dr. Ajith Chung MD Work Phone: 9(774)859-988280 [place] [address] 12-14-2024 11:50-0400 Body weight [address] Ajith Chung MD Work Phone: 6(182)913-696316 [place] [address] 11-11-2024 13:23-0400 Diastolic blood pressure 85 mm[Hg] Dr. Ajith Chung MD Work Phone: 7(502)106-022780 [place] [address] 11-11-2024 13:23-0400 Heart rate 65 /min Dr. Ajith Chung MD Work Phone: 9(007)642-617280 [place] [address] 11-11-2024 13:23-0400 Respiratory rate 18 /min Dr. Ajith Chung MD Work Phone: 8(853)036-456580 [place] [address] 11-11-2024 13:23-0400 SaO2% (BldA) [Mass fraction] 95 % Dr. Ajith Chung MD Work Phone: [facility] 11-11-2024 13:23-0400 Systolic blood pressure 126 mm[Hg] Dr. Ajith Chung MD Work Phone: [facility] 08-19-2024 07:57-0500 Body height 161.[address] Ajith Chung MD Work Phone: [facility] 08-19-2024 07:57-0500 Body mass index (BMI) [Ratio] 22.1 kg/m2 Dr. Ajith Chung MD Work Phone: 8([phone])[phone] [address] 08-19-2024 07:57-0500 Body temperature 98 [degF] Dr. Ajith Chung MD Work Phone: 1(191)[phone] [address] 08-19-2024 07:57-0500 Body weight 57.[address] Ajith Chung MD Work Phone: [facility] 08-19-2024 07:57-0500 Diastolic blood pressure 84 mm[Hg] Dr. Ajith Chung MD Work Phone: [facility] 08-19-2024 07:57-0500 Heart rate 55 /min Dr. Ajith Chung MD Work Phone: [facility] 08-19-2024 07:57-0500 SaO2% (BldA) [Mass fraction] 99 % Dr. Ajith Chung MD Work Phone: [facility] 08-19-2024 07:57-0500 Systolic blood pressure 122 mm[Hg] Dr. Ajith Chung MD Work Phone: [facility] 03-08-2024 14:23-0400 Body height 160 cm Laith Mccloud MD Work Phone: [facility] 03-08-2024 14:23-0400 Body mass index (BMI) [Ratio] 21.97 kg/m2 Laith Mccloud MD Work Phone: [facility] 03-08-2024 14:23-0400 Body weight 56.25 kg Laith Mccloud MD Work Phone: [facility] 03-08-2024 14:23-0400 Diastolic blood pressure 64 mm[Hg] Laith Mccloud MD Work Phone: [facility] 03-08-2024 14:23-0400 Systolic blood pressure 106 mm[Hg] Laith Mccloud MD Work Phone: [facility] 03-03-2023 08:46-0400 Body height 160 cm Laith Mccloud MD Work Phone: [facility] 03-03-2023 08:46-0400 Body weight 57.15 kg Laith Mccloud MD Work Phone: [facility] 03-03-2023 08:46-0400 Diastolic blood pressure 70 mm[Hg] Laith Mccloud MD Work Phone: [facility] 03-03-2023 08:46-0400 Systolic blood pressure 116 mm[Hg] Laith Mccloud MD Work Phone: [facility] [facility] 02-07-2022 09:00-0400 Body height 160 cm Laith Mccloud MD Work Phone: [facility] 02-07-2022 09:00-0400 Body weight 57.15 kg Laith Mccloud MD Work Phone: [facility] 02-07-2022 09:00-0400 Diastolic blood pressure 76 mm[Hg] Laith Mccloud MD Work Phone: [facility] 02-07-2022 09:00-0400 Systolic blood pressure 118 mm[Hg] Laith Mccloud MD Work Phone: [facility] Encounters Encounter Date Encounter Type Care Provider Facility Start: 03-10-2025 End: 03-10-2025 Patient encounter procedure Laith Mccloud MD Work Phone: OB/Gynecology Comment on above: Encounter for gyneco logical examination (general) (routine) without abnormal findings (Primary Dx); Encounter for screening mammogram for breast cancer Start: 03-10-2025 End: 03-10-2025 Patient encounter status Laith Mccloud MD Work Phone: [facility] Start: 03-10-2025 Encounter for gynecological examination (general) (routine) without abnormal findings LAITH MCCLOUD [facility] Start: 03-10-2025 End: 03-10-2025 ambulatory LAITH MCCLOUD Facility:[facility] Start: 03-10-2025 End: 03-10-2025 Subsequent hospital visit by physician Screen Mammo [facility] Comment on above: Breast screening [Z1 2.39] Start: 02-13-2025 End: 02-13-2025 Telephone encounter Laith Mccloud MD Work Phone: OB/Gynecology Comment on above: Mammogram Start: 02-08-2025 End: 02-08-2025 Refill Laith Mccloud MD Work Phone: OB/Gynecology Comment on above: Refill Request Start: 02-07-2025 End: 02-07-2025 Refill Laith Mccloud MD Work Phone: OB/Gynecology Comment on above: Refill Request Start: 02-01-2025 End: 02-01-[address] Ajith Chung MD Work Phone: -[facility]patient [facility] Densitometry Start: 02-01-2025 End: 02-01-[address] Ajith Chung MD -[facility] Work Phone: Start: 02-01-2025 End: 02-01-2025 ambulatory Ajith Chung Facility:[facility] Start: 01-26-2025 End: 01-26-[address] Ajith Chung MD Work Phone: -Laboratory [facility] Start: 01-26-2025 End: 01-26-[address] Ajith Chung MD -[facility] Start: 01-26-2025 End: 01-26-2025 ambulatory Ajith Chung Facility:[facility] Start: 01-18-2025 End: 01-18-2025 Patient encounter procedure Omar Shi DO -[facility] Work Phone: Start: 01-18-2025 End: 01-18-[address] Ajith Chung MD Work Phone: -[facility] Start: 12-23-2024 End: 12-23-[address] Samm Wallis MD -[facility] Work Phone: Start: 12-23-2024 End: 12-23-[address] Ajith Chung MD Work Phone: [facility] Work Phone: Start: 12-15-2024 End: 12-15-[address] Samm Wallis MD -[facility] Work Phone: Start: 12-15-2024 End: 12-15-[address] Ajith Chung MD Work Phone: [facility] Work Phone: Start: 12-14-2024 ambulatory Samm Wallis Facility:[facility] Start: 12-14-2024 Non-patient / Non-visit Dr. Samm Wallis MD -[facility] Start: 12-14-2024 End: 12-14-2024 Admission to same day surgery center Dr. Samm Wallis MD -[facility] Start: 12-14-2024 End: 12-14-[address] Ajith Chung MD Work Phone: [facility] Work Phone: Start: 11-23-2024 End: 11-23-[address] Ajith Chung MD Work Phone: [facility] Work Phone: Start: 11-23-2024 End: 11-23-[address] Samm Wallis MD -[facility] Work Phone: Start: 11-23-2024 End: 11-23-2024 ambulatory Samm Wallis Facility:[facility] Start: 11-11-2024 End: 11-11-[address] Samm Wallis MD -[facility] Work Phone: Start: 11-11-2024 End: 11-11-[address] Ajith Chung MD Work Phone: [facility] Work Phone: Start: 11-11-2024 End: 11-11-2024 Patient encounter procedure Omar Shi -Nuclear Medicine, [facility] Work Phone: Start: 11-11-2024 End: 11-11-2024 ambulatory Omar Jose Guadalupe Facility:[facility] Start: 10-19-2024 End: 10-19-2024 Patient encounter procedure Omar Shi DO -[facility] Work Phone: Start: 10-19-2024 End: 10-19-2024 ambulatory Ajith Chung Facility:[facility] Start: 08-19-2024 End: 08-19-2024 Patient encounter procedure Kojo Naidu [facility] Work Phone: Start: 08-19-2024 End: 08-19-2024 ambulatory Toni Juliet Facility[facility] Start: 05-21-2024 End: 05-21-2024 ambulatory [place] Juliet Facility:[facility] Start: 05-19-2024 End: 05-19-2024 [facility] Start: 03-08-2024 End: 03-08-2024 Patient encounter procedure Laith Mccloud MD Work Phone: OB/Gynecology Comment on above: Encounter for gyneco logical examination (general) (routine) without abnormal findings (Primary Dx) Start: 03-08-2024 End: 03-08-2024 Patient encounter status Laith Mccloud MD Work Phone: [facility] Start: 08-31-2023 End: 08-31-2023 ambulatory [facility] Work Phone: Start: 08-31-2023 End: 08-31-2023 Patient encounter procedure [facility] Work Phone: Start: 04-21-2023 Telephone encounter Laith Mccloud MD Work Phone: OB/Gynecology Comment on above: UTI Start: 04-21-2023 End: 04-21-2023 ambulatory [facility] Work Phone: Start: 04-21-2023 End: 04-21-2023 [facility] Start: 04-03-2023 End: 04-03-2023 Patient encounter status Screen Wstr [facility] Start: 04-03-2023 End: 04-03-2023 Subsequent hospital visit by physician Screen Mammo [facility] Comment on above: Encounter for gyneco logical examination (general) (routine) without abnormal findings [Z01.419] Start: 03-03-2023 End: 03-03-2023 Patient encounter procedure Laith Mccloud MD Work Phone: OB/Gynecology Comment on above: Encounter for gyneco logical examination (general) (routine) without abnormal findings (Primary Dx); Encounter for screening mammogram for breast cancer Start: 03-03-2023 End: 03-03-2023 Patient encounter status Laith Mccloud MD Work Phone: [facility] Start: 01-08-2023 End: 01-08-2023 Patient encounter procedure [facility] Start: 03-10-2022 ambulatory Laith solano MD Work Phone: OB/Gynecology Comment on above: Frances Blood type Start: 02-20-2022 End: 02-20-2022 Patient encounter procedure [facility] Start: 02-07-2022 End: 02-07-2022 Patient encounter procedure [...] encounter status Laith Mccloud MD Work Phone: [facility] Procedures Date Procedure Procedure Detail Performing Clinician Start: 02-01-2025 Dual energy X-ray absorptiometry Dr. Ajith Chung MD Work Phone: Start: 01-26-2025 Vitamin D, 25-hydrox y measurement Dr. Ajith Chung MD Work Phone: Comment on above: Vitamin D StatusDefi ciency: <20 ng/mL (50nmol/L)Insufficiency: 20-30 ng/mL (50-75 nmol/L)Sufficiency: 30-100 ng/mL (75-250 nmol/L)Toxicity: >100 ng/mL (>250 nmol/L) Start: 12-14-[address] Marycruz Chung MD Work Phone: Start: 11-23-[address] Ajith [...] Treatment Date Care Activity Detail Author Start: 2034 RSV Vaccine (1 - 1-d ose 75+ series) RSV Vaccine (1 - 1-dose 75+ series) [facility] Start: 01-08-2033 Urine microalbumin profile DTaP,Tdap,Td Vaccine (3 - Td or Tdap) [facility] Start: 03-16-2026 End: 03-16-2026 Patient encounter procedure Mammogram Comment on above: SEBAS SCREENING [facility] annual Start: 05-29-2025 ambulatory Ambulatory Facility:[facility] Start: 03-13-2025 Influenza vaccination Influenza Vacc ine (#1) [facility] Start: 03-10-2025 End: 03-10-2025 Patient encounter procedure OB/Gynecology Comment on above: Annual Dx: Breast screening [Z12.39] Start: 12-14-2024 Anes integ extremiti es ant trunk & perineum nos ANESTH SKIN EXT/PER/ATRUNK [facility] Start: 12-14-2024 Exc tumor soft tissu e upper arm/elbow subq 3cm/> EXC ARM/ELBOW LES SC 3 CM/> [facility] Start: 12-14-2024 Repair intermediate s/a/t/e 2.6-7.5 cm INTMD RPR S/A/T/EXT 2.6-7.5 [facility] Start: 12-14-2024 Patient discharge [facility] Start: 07-13-2024 Advance Directive Discussion Advance Directive Discussion [facility] Start: 04-03-2024 Mammography Mammogram Screening [facility] Start: 04-03-2024 Screening for malign ant neoplasm of breast Mammogram Screening [facility] Start: 03-13-2024 Influenza vaccination Influenza Vacc ine (#1) [facility] Start: 01-31-2024 Advance Directive Discussion Advance Directive Discussion [facility] Start: 01-31-2024 Pneumococcal Vaccine : 65+ (1 of 1 - PCV) Pneumococcal Vaccine: 65+ (1 of 1 - PCV) [facility] Start: 01-31-2024 Screening for osteoporosis Bone Density Screening [facility] Start: 03-13-2023 Covid-19 Vaccine ( season) Covid-19 Vaccine ( season) [facility] Start: 03-13-2023 Influenza vaccination [facility] Start: 01-18-2023 Urine microalbumin profile [facility] Start: 07-13-2022 DEPRESSION ASSESSMENT DEPRESSION ASS ESSMENT [facility] Start: 03-20-2022 COVID-19 VACCINE (5 - Moderna series) COVID-19 VACCINE (5 - Moderna series) [facility] Start: 03-13-2022 Influenza vaccination [facility] Start: 02-06-2022 Mammography MAMMOGRAM [facility] Start: 09-24-2021 Colonoscopy COLONOSCOPY [facility] Start: 09-24-2021 COLORECTAL CANCER SCREENING COLORECTAL CANCER SCREENING [facility] Start: 09-24-2021 Screening for malign ant neoplasm of colon [facility] Start: 03-19-2021 COVID-19 VACCINE (3 - Booster for Moderna series) COVID-19 VACCINE (3 - Booster for Moderna series) [facility] Start: 03-26-2020 Lipid 1996 panel - S lui or Plasma Lipid Screening [facility] Start: 03-26-2020 Lipid panel Lipid Screening [facility] Start: 03-26-2020 LIPID SCREEN LIPID SCREEN [facility] Start: 2019 RSV Vaccine (1 - 1-d ose 60+ series) RSV Vaccine (1 - 1-dose 60+ series) [facility] Start: 03-26-2018 DIABETES SCREEN DIABETES SCREEN [facility] Start: 03-26-2018 Diabetes Screening Diabetes Screenin g [facility] Start: 2009 Pneumococcal Vaccine : 50+ (1 of 1 - PCV) Pneumococcal Vaccine: 50+ (1 of 1 - PCV) [facility] Start: 01-31-2004 COLOGUARD (FIT-DNA) COLOGUARD (FIT-D NA) [facility] Start: 01-31-[address] COLONOGRAPHY [facility] Start: 01-31-2004 FECAL OCCULT BLOOD FECAL OCCULT BLOO D [facility] Start: 01-31-2004 Screening for malign ant neoplasm of colon [facility] Start: 01-31-2004 SIGMOIDOSCOPY SIGMOIDOSCOPY [facility] Start: 1977 Anxiety Screening Anxiety Screening [facility] Start: 1977 Depression Screening Depression Scre ening [facility] Start: 1977 HEPATITIS C SCREENING HEPATITIS C [facility] Start: 1977 Hepatitis C screening Hepatitis C [facility] Start: 1977 HIV SCREENING HIV SCREENING [facility] Start: 1977 HIV screening HIV Screening [facility] Start: 1971 Adult depression screening assessment DEPRESSION SCREENING [facility] End: 03-15-2026 DBT Breast - bilateral screening SEBAS SCREENING [facility] Routine Breast screening 1 Occurrences starting 02/13/2025 until 03/15/2026 [facility] Work Phone: Comment on above: 1 Occurrences starti ng 02/13/2025 until 03/15/2026 End: 04-09-2026 DBT Breast - bilateral screening SEBAS SCREENING [facility] Routine Encounter for gynecological examination (general) (routine) without abnormal findings Encounter for screening mammogram for breast cancer 1 Occurrences starting 03/10/2025 until 04/09/2026 [facility] Work Phone: Comment on above: 1 Occurrences starti ng 03/10/2025 until 04/09/2026 DBT Breast - bilater al screening SEBAS SCREENING [facility] Routine Breast screening 03/10/2025 7:53 AM EDT [facility] Work Phone: End: 03-09-2023 SEBAS SCREENING [facility]BAS SCREENING [facility] Routine Encounter for gynecological examination (general) (routine) without abnormal findings Encounter for screening mammogram for breast cancer 1 Occurrences starting 02/07/2022 until 03/09/2023 [facility] Work Phone: Comment on above: 1 Occurrences starti ng 02/07/2022 until 03/09/2023 End: 04-01-2024 SEBAS SCREENING [facility] SEBAS SCREENING [facility] Routine Encounter for gynecological examination (general) (routine) without abnormal findings Encounter for screening mammogram for breast cancer 1 Occurrences starting 03/03/2023 until 04/01/2024 [facility] Work Phone: Comment on above: 1 Occurrences starti ng 03/03/2023 until 04/01/2024 Patient referral [facility] Work Phone: [facility] Immunizations Immunization Date Immunization Notes Care Provider Gay briggs 05-15-2019 zoster vaccine recombinant Laith Mccloud MD Work Phone: [facility] Work Phone: 01-23-2019 zoster vaccine recombinant Laith Mccloud MD Work Phone: [facility] Work Phone: 07-15-2016 influenza virus vaccine, unspecified formulation Laith Mccloud MD Work Phone: [facility] 04-27-2016 zoster vaccine, live Laith Mccloud MD Work Phone: [facility] Work Phone: 01-18-2013 tetanus toxoid, redu cheng diphtheria toxoid, and acellular pertussis vaccine, adsorbed Laith Mccloud MD Work Phone: [facility] Work Phone: Payers Date Payer Category Payer Self-pay [id number] 2015 Private Health Insurance [facility] CHOICE PLAN GENERIC [id number] 2015 Unknown [facility] PPO [place] GENERIC [id number] 2015-Present [phone] [address] [place] [address] PPO [id number] 2015 Unknown [id number] 2015 Unknown [id number] Unknown [id number] Unknown [facility] DO NOT USE [id number] Unknown [id number] Unknown [id number] Unknown [id number] [id number] Unknown [id number] [id number] Unknown [id number] [id number] Unknown [id number] Unknown [id number] [id number] Unknown [id number] [id number] Unknown [id number] 2.462 Unknown [id number]. 2.462 Unknown [id number]. 2.462 Unknown [id number] [id number] Unknown [id number] [id number] Unknown [id number] [id number] Unknown [id number] 2.462 Social History Date Type Detail Facility Start: 12-28-2012 End: 03-03-2023 Tobacco smoking status NHIS Never smoked tobacco [facility] Start: 02-06-2021 End: 03-10-2025 Alcohol intake Current drinker of alcohol (finding) [facility] Start: 07-15-2016 History SDOH Alcohol Comment occasional [facility] Start: 1960 Sex Assigned At Not on file [facility] Start: 01-28-2022 End: 02-07-2022 Exposure to SARS-CoV-2 (event) Not sure [facility] Start: 10-11-2015 End: 09-05-2022 Tobacco smoking status FLIS Unknown if ever smoked [facility] Start: 1960 Sex Assigned At Female W [facility] Start: 12-28-2012 End: 03-03-2023 Tobacco use and exposure Smokeless tobacco non-user [facility] Start: 03-03-2023 End: 03-10-2025 History of Social function [facility] Start: 03-03-2023 End: 03-10-2025 Tobacco use panel [facility] Start: 06-13-2012 National Score (1-100), lower number is lower risk 66 [facility] How often to you hav e a drink containing alcohol? 2-3 time sa week [facility] How many standard drinks containing alcohol do you have on a typical day? 1 or 2 [facility] How often do you hav e 6 or more drinks on 1 occasion? Never [facility] NEGATED: Highlighted row Not [facility] Goals Date Patient Goal Desired Activity /State Functional Status Date Assessment Result Facility 03-10-2025 Total score [AUDIT-C] 3 03/10/20 25 8:49 AM EDT Xenia Norman MA [facility] 09-27-2014 Are you deaf, or do you have serious difficulty hearing No 09/27/2014 3:49 PM EDT Eva Howell LPN No [facility] 09-27-2014 Are you blind, or do you have serious difficulty seeing, even when wearing glasses No 09/27/2014 3:49 PM EDT Eva Howell LPN No [facility] 09-27-2014 Do you have serious difficulty walking or climbing stairs No 09/27/2014 3:49 PM EDT Eva Howell LPN No [facility] 09-27-2014 Do you have difficul ty dressing or bathing No 09/27/2014 3:49 PM EDT Eva Howell LPN No [facility] 09-27-2014 Because of a physica l, mental, or emotional condition, do you have difficulty doing errands alone such as visiting a physician's office or shopping No 09/27/2014 3:49 PM EDT Eva Howell LPN No [facility] Mental Status Date Assessment Result Facility 12-14-2024 Cognitive function Voice/Name [facility] Work Phone: 09-27-2014 Because of a physica l, mental, or emotional condition, do you have serious difficulty concentrating, remembering, or making decisions No 09/27/2014 3:49 PM EDT Eva Howell LPN No [facility] Clinical Notes 10-14-2012 to 03-10-2025 Laith Mccloud MD - 03/10/2025 8:48 AM Emma Shabazz RT(R) - 03/10/2025 7:50 AM EDTTelephone Encounter - Lora Ferrara RN - 02/13/2025 2:29 PM EDT Note Date & Type Note Facility 03-10-2025 History of Presen t illness Narrative Navya is a 65 year old who presents for an annual gynecologic exam without complaints. Doing well w/ estrogen patch. No c/o. Mother is in memory unit due to dementia. retiring Jul 12. Postmenopausal: yes HRT use: patch. Still get period: No LMP: n/a s/p hyst Menopause symptoms: None Last pap smear: before hyst History of abnormal pap: no Bothersome pelvic pain: No Last mammogram: today pending History of abnormal mammogram: No OB History Gravida2 Para2 Term2 Preterm0 AB0 Living2 SAB0 IAB0 Ectopic0 Multiple0 Live Births0 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 LMP: Hysterectomy Age at Menarche: 10 Age at First : Age at Menopause: 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 Comments: Sexual Activity: Yes; Male; hyst [...] skin retraction Allergies and current medication updated:Yes SENSITIVE EXAM: The sensitive examination was discussed with the Patient or Patient's Authorized Avionics Shop Supervisor. As applicable, any other physician, advance practice provider, medical student, or other health professional student that will be observing or involved in the sensitive examination for educational or training purposes was discussed with the Patient or Authorized Avionics Shop Supervisor. The Patient or Authorized Avionics Shop Supervisor has agreed to proceed with the sensitive examination. (Sensitive examination includes inspection and/or palpation of the breasts, pelvis, prostate and anorectal regions). EXAM: There were no vitals taken for this visit. GENERAL: pleasant, female in no apparent distress [...] external genitalia normal, normal Bartholin's glands, urethra, [place]'s glands, no vulvar lesions, good vaginal support, physiologic discharge present, normal appearing perineal body and perianal region, cervix surgically absent, cystocele 1st degree, atrophic flattened epithelium BIMANUAL: no adnexal masses, non-tender, and uterus surgically absent RECTOVAGINAL: deferred. NEURO: alert and oriented x3,exam grossly non-focal EXTREMITIES: normal ASSESSMENT/PLAN: 1) Health maintenance: Pap/HPV screening no longer needed mammo done other health screens per PCP 2) Follow up one year or sooner as needed f/ in 1 year or prn cont. estrogen patch and detrol prn Laith Mccloud MD documented in this encounter [facility] 03-10-2025 Note HNO ID: [id number] Author: LAITH MCCLOUD MD Service: ? Author Type: Physician Type: Progress Notes Filed: 03/10/2025 09:09 Note Text: Navya is a 65 year old who presents for an annual gynecologic exam without complaints. Doing well w/ estrogen patch. No c/o. Mother is in memory unit due to dementia. retiring Jul 12. Postmenopausal: yes HRT use: patch. Still get period: No LMP: n/a s/p hyst Menopause symptoms: None Last pap smear: before hyst History of abnormal pap: no Bothersome pelvic pain: No Last mammogram: today pending History of abnormal mammogram: No OB History Gravida2 Para2 Term2 Preterm0 AB0 Living2 SAB0 IAB0 Ectopic0 Multiple0 Live Births0 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 LMP: Hysterectomy Age at Menarche: 10 Age at First : Age at Menopause: 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 Comments: Sexual Activity: Yes; Male; hyst [...] skin retraction Allergies and current medication updated:Yes SENSITIVE EXAM: The sensitive examination was discussed with the Patient or Patient's Authorized Avionics Shop Supervisor. As applicable, any other physician, advance practice provider, medical student, or other health professional student that will be observing or involved in the sensitive examination for educational or training purposes was discussed with the Patient or Authorized Avionics Shop Supervisor. The Patient or Authorized Avionics Shop Supervisor has agreed to proceed with the sensitive examination. (Sensitive examination includes inspection and/or palpation of the breasts, pelvis, prostate and anorectal regions). EXAM: There were no vitals taken for this visit. GENERAL: pleasant, female in no apparent distress [...] external genitalia normal, normal Bartholin's glands, urethra, [place]'s glands, no vulvar lesions, good vaginal support, physiologic discharge present, normal appearing perineal body and perianal region, cervix surgically absent, cystocele 1st degree, atrophic flattened epithelium BIMANUAL: no adnexal masses, non-tender, and uterus surgically absent RECTOVAGINAL: deferred. NEURO: alert and oriented x3,exam grossly non-focal EXTREMITIES: normal ASSESSMENT/PLAN: 1) Health maintenance: Pap/HPV screening no longer needed mammo done other health screens per PCP 2) Follow up one year or sooner as needed f/ in 1 year or prn cont. estrogen patch and detrol prn Laith Mccloud MD [facility] 03-10-2025 History of Presen t illness Narrative Radiology Service Progress Note PATIENT NAME: Navya Frances DATE OF SERVICE: March 10, 2025 TIME: 7:55 AM PATIENT IDENTITY VERIFICATION COMPLETED USING TWO (2) IDENTIFIERS: Name and Date of confirmed by patient verbally. FALL SCREENING: Has the patient had 2 falls in the last year or 1 fall with injury or currently using an Ambulatory Assistive Device (Walker, Cane, Wheelchair, Crutches, etc.)? No PATIENT GENDER DATA: Assigned female at . status: : No status: NO. PATIENT RELEVANT IMPLANT DATA REVIEWED: Yes PATIENT PRESENTS WITH AN IMPLANTABLE OR ATTACHED SEAMARK ADVANCED OPERATOR MAINTAINER: No RADIOLOGY DEPARTMENT: Mammography PERIPHERAL IV DATA: Not applicable SIGNED BY: RT Donnie(R) March 10, 2025 7:55 AM documented in this encounter [facility] 03-10-2025 Note HNO ID: [id number] Author: EMMA SHEARER RT(Darrick) Service: Radiology Author Type: Author Type: Progress Notes Filed: 03/10/2025 07:55 Note Text: Radiology Service Progress Note PATIENT NAME: Navya Frances DATE OF SERVICE: March 10, 2025 TIME: 7:55 AM PATIENT IDENTITY VERIFICATION COMPLETED USING TWO (2) IDENTIFIERS: Name and Date of confirmed by patient verbally. FALL SCREENING: Has the patient had 2 falls in the last year or 1 fall with injury or currently using an Ambulatory Assistive Device (Walker, Cane, Wheelchair, Crutches, etc.)? No PATIENT GENDER DATA: Assigned female at . status: : No status: NO. PATIENT RELEVANT IMPLANT DATA REVIEWED: Yes PATIENT PRESENTS WITH AN IMPLANTABLE OR ATTACHED SEAMARK ADVANCED OPERATOR MAINTAINER: No RADIOLOGY DEPARTMENT: Mammography PERIPHERAL IV DATA: Not applicable SIGNED BY: RT Donnie(R) March 10, 2025 7:55 AM [facility] 02-13-2025 Telephone encount er Note Pt calling for mammogram order as she'd like to get this scheduled around annual exam time. Please file order and will forward to PSS to contact Pt to schedule. Lora Ferrara RN [facility] 02-13-2025 Miscellaneous Notes Formattin g of this note might be different from the original. Pt calling for mammogram order as she'd like to get this scheduled around annual exam time. Please file order and will forward to PSS to contact Pt to schedule. Lora Ferrara RN documented in this encounter [facility] 02-08-2025 Miscellaneous Notes Formattin g of this note is different from the original. Patient needs extension of her Vivelle patch until her annual in February. Requested Prescriptions Pending Prescriptions Disp Refills estradiol (MINIVELLE, VIVELLE-DOT) 0.025 mg/24 hr patch 24 patch 0 Sig: APPLY 1 PATCH EVERY THURSDAY AND THURSDAY DIRECTED Next visit in this department: 03/10/2025 Emma Ferrara RN documented in this encounter [facility] 02-08-2025 Telephone encount er Note Patient needs extension of her Vivelle patch until her annual in February. Requested Prescriptions Pending Prescriptions Disp Refills estradiol (MINIVELLE, VIVELLE-DOT) 0.025 mg/24 hr patch 24 patch 0 Sig: APPLY 1 PATCH EVERY THURSDAY AND THURSDAY DIRECTED Next visit in this department: 03/10/2025 Emma Ferrara RN [facility] 12-14-2024 Consult note [facility] 12-14-2024 History and physi rayshawn note [facility] 12-14-2024 Consult note [facility] 11-23-2024 Radiology Diagnostic study note [facility] Imaging Services [address] [place] [address] Ext Non Vasc Limited/Soft Tiss MR#: [id number] Acct: [id number] Name: NAVYA FRANCES Rep #: [id number] : 1960 F 64 From: Roby Roberto MD PCP: Dr. Ajith Chung MD Status: REG CLI Study:Ext Non Vasc Limited/Soft Tiss Date of Exam: 11/23/24 Exam# [id number] Ordering Dr: Kimberly Wallis MD PROCEDURE: EXT [...] most likely represents a lipoma. Reading Location: [id number] CC: Dr. Ajith Chung MD; Dr. Samm Wallis MD ~ Fitter Helper: Signed [facility] 11-14-2024 Nuclear medicine Diagnostic study note [facility] Imaging Services [address] [place] [address] Gastric Emptying Study MR#: [id number] Acct: [id number] Name: NAVYA FRANCES Rep #: [id number] : 1960 F 64 From: Cordell Rosales MD PCP: Dr. Ajith Chung MD Status: REG CLI Study:Gastric Emptying Study Date of Exam: 11/11/24 Exam# [id number] Ordering Dr: Darrick Shi DO PROCEDURE: GASTRIC EMPTYING STUDY 11/11/2024 REASON FOR EXAM: BLOATING COMPARISON: None. TECHNIQUE: The patient ingested a standard meal of cooked oatmeal was ingested. There was no vomiting postprandially. Imaging for a total of 1 hour was obtained. Regions of interest were drawn, oswaldo geometric mean was used to calculate a owka-uuyhupel-pelwr. Medications taken in the past 24 hours [...] semi solid phase gastric emptying. Reading Location: [place] [address] CC: Dr. Ajith Chung MD; Omar Shi, ~ Fitter Helper: Signed [facility] 10-19-2024 Evaluation note Diagnosis Onset Date Resolution Constipation acute October 19 8:21am Mass of shoulder region acute M ay 2024 1:00pm Mass of shoulder region acute J une 2024 11:30am Mass of shoulder region acute J une 2024 10:39am [facility] Work Phone: 1(176) 866-834904-09-2025 Evaluation note* Diagnosis Onset Date Resolution Status Admit Date Constipation acute October 19 8:21am Mass of shoulder region acute M ay 2024 1:00pm Mass of shoulder region acute J une 2024 11:30am Mass of shoulder region acute J une 2024 10:39am Mass of shoulder region acute J une 2024 8:13am [facility] Work Phone: 1([phone]) 580-461404-09-2025 Evaluation note* Diagnosis Onset Date Resolution Status Admit Date Constipation acute October 19 8:21am Mass of shoulder region acute M ay 2024 1:00pm Mass of shoulder region acute J une 2024 11:30am Mass of shoulder region acute J une 2024 10:39am Mass of shoulder region acute J une 2024 8:13am Constipation acute January 18 7:53am [facility] Work Phone: 1(964) 538-757802-07-2025 Evaluation note* Diagnosis Onset Date Resolution Status Admit Date Increased urinary frequency acute August 19, 2024 7:53am Constipation acute October 19 025 8:21am Mass of shoulder region acute M ay 2024 1:00pm [facility] Work Phone: 1(586) 514-280402-07-2025 Evaluation note* Diagnosis Onset Date Resolution Status Admit Date Increased urinary frequency acute August 19, 2024 7:53am Constipation acute October 19 025 8:21am Mass of shoulder region acute M ay 2024 1:00pm Mass of shoulder region acute J une 2024 11:30am [facility] Work Phone: 1(609) 230-439508-27-2024 History of Present illness Narrative* Laith Mccloud [...] L2 SAB0 IAB0 Ectopic0 Multiple0 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 Comments: Sexual Activity: Yes; Male; hyst [...] external genitalia normal, normal Bartholin's glands, urethra, [place]'s glands, no vulvar lesions, good vaginal support, [...] needed Laith Mccloud MD [facility] History of Present illness Narrative* Laith Mccloud [...] L2 SAB0 IAB0 Ectopic0 Multiple0 Live Births0 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 LMP: Hysterectomy Age at Menarche: Age at First : Age at Menopause: 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 Comments: Sexual Activity: Yes; Male; hyst Contraception: Surgical PAST MEDICAL HISTORY Diagnosis Date Goiter, unspecified 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 Pt has upcoming yearly scheduled. Eva Howell LPN documented in [facility] History of Past illness Narrative* Problem Noted Date Resolved Date Symptomatic menopausal or female climacteric sta mesfin 10/14/2012 07/15/2016 Routine General Medical Exam ination at a Health Care Facility 04/18/2008 09/27/2014 Overview: Vitamin D 52 in 04-19: on supplements for FH of osteoporosis Father had CABG in his 60s (former smoker) Pt e-mail about considering a stress test in 08-21 after seeing [employer] WORKER for eval of menopause ED 11-18 for [...] of this encounter (statuses as of 12/31/2021) [facility] History of Past illness Narrative* Problem Noted Date Resolved Date Symptomatic menopausal or female climacteric sta mesfin 10/14/2012 07/15/2016 Routine General Medical Exam ination at a Health Care Facility 04/18/2008 09/27/2014 Overview: Vitamin D 52 in 04-19: on supplements for FH of osteoporosis Father had CABG in his 60s (former smoker) Pt e-mail about considering a stress test in 08-21 after seeing [employer] WORK[employer] for eval of menopause ED 11-18 for [...] of this encounter (statuses as of 02/07/2022) [facility] History of Past illness Narrative* Problem Noted Date Resolved Date Symptomatic menopausal or female climacteric sta mesfin 10/14/2012 07/15/2016 Routine General Medical Exam ination at a Health Care Facility 04/18/2008 09/27/2014 Overview: Vitamin D 52 in 04-19: on supplements for FH of osteoporosis Father had CABG in his 60s (former smoker) Pt e-mail about considering a stress test in 08-21 after seeing [employer] WORK[facility] for eval of menopause ED 11-18 for [...] of this encounter (statuses as of 03/10/2022) [facility] History of Past illness Narrative* Problem [...] a stress test in 08-21 after seeing [employer] for eval of menopause ED 11-18 for [...] of this encounter (statuses as of 03/03/2023) [facility] History of Past illness Narrative* Problem [...] a stress test in 08-21 after seeing [employer] WORK[employer] for eval of menopause ED 11-18 for [...] of this encounter (statuses as of 04/21/2023) [facility] History of Past illness Narrative* Problem [...] a stress test in 08-21 after seeing [employer] WORK[employer] for eval of menopause ED 11-18 for [...] of this encounter (statuses as of 05/17/2023) [facility] note Author Cortes Hernandez [facility] Note Date/Time December 14, 2024 12:31 pm [facility] Medical Records Department [address] [place] [address] Pre-Anesthesia Evaluation 12/14/24 1227 MR#: [id number] Acct: [id number] Name: NAVYA FRANCES Rep #:[id number] : 1960 64 From: Cortes Hernandez MD PCP: Dr. Ajith Chung MD Status :REG SDC Y Race: C Location: [place] [address] ASA Classification* ASA Classification ASA Classification: 1 Assessment & Plan Anesthesia* Anesthesia Assessment Anesthesia Assessment: Discussed sedation and/or anesthesia options, risks, benefits, and alternatives with patient/parents/legal guardian/POA. Questions invited. The patient/parents/legal guardian/POA seems to understand and agrees to proceedwith anesthesia plan. Reviewed the physical assessment, medical history, allergy history and patient home medications list prior to surgery/procedure/anesthetic and documented any changes. Performed airway and anesthesia risk assessments. Anesthesia Type Anesthesia Type: MAC History Source History Obtained from:: Patient and Chart Anesthesia Focused Assessment* Temperature: 97.4 F Pulse Rate: 65 Blood Pressure: 138/91 Respiratory Rate: 16 Pulse Ox: 100 Oxygen Delivery Method: Room Air Airway Assessment Mouth opens: >3 cm Mallampati Score: II Teeth Condition: Intact Neck Range of motion (ROM): Full ROM Focused Labs Anesthesia Preop lab: CBC WBC 5.2 K/mm3 (4.4-11.0) 01/08/23 09:15 01/08/23 RBC 4.63 M/mm3 (4.2-5.4) 01/08/23 09:15 01/08/23 Hgb 14.4 g/dL (12.0-15.0) 01/08/23 09:15 01/08/23 Hct 44.1 % (37-47) 01/08/23 09:15 01/08/23 Plt Count 281 K/mm3 (150-450) 01/08/23 09:15 01/08/23 CHEMISTRY Potassium 4.6 mmol/L (3.5-5.1) 01/26/24 11:07 01/26/24 Sodium 136 mmol/L (136-145) 01/26/24 11:07 01/26/24 BUN 14 mg/dL (7-18) 01/26/24 11:07 01/26/24 Creatinine 0.72 mg/dL (0.55-1.02) 01/26/24 11:07 01/26/24 Glucose 91 mg/dL (74-106) 01/26/24 11:07 01/26/24 TSH 1.49 uIU/mL (0.358-3.74) 01/08/23 09:15 COAG Pre-Assessment Diagnosis/Proposed Procedure Planned Operative Procedure(s): EXCISION LEFT SHOULDER MASS Anesthesia History Anesthesia History - interior design consultant: Anesthesia History - interior design consultant Hx Hospitalization No 12/01/24 11:38 Any Problems With Anesthesia No 12/01/24 11:38 Cholinesterase deficiency No 12/01/24 11:38 You/Your Family Experience No 12/01/24 11:38 fever (hyperthermia) with Relationship Recent Exposure to Contagious No 12/14/24 11:50 Disease Does patient have nerve No 12/01/24 11:38 stimulator Patient instructed to have device shut off --Does patient have Pacemaker No 12/14/24 11:50 or ICD? When Was Last Pacemaker Check QUESTION #4 FULL TEXT: You/Your Family Experience fever (hyperthermia) with Anesthesia Last Oral Intake Last Oral intake: Last Oral Intake NPO since 06:30 12/14/24 11:50 Meds taken in AM with sips of water? Meds patient instructed to take am of surgery PONV PONV - interior design consultant: PONV - interior design consultant Female Yes 12/01/24 11:38 HX of Motion Sickness No 12/01/24 11:38 HX of N/V After Surgery No 12/01/24 11:38 Non-Smoker Yes 12/01/24 11:38 Duration of Surgery greater No 12/01/24 11:38 than 60 minutes Number of Risk Factors 2 12/01/24 11:38 PONV Score Moderate Risk 12/01/24 11:38 Height & Weight Height & Weight: Anesthesia: Height & Weight Height 5 ft 3.5 in 12/14/24 11:50 Weight: 58 kg 12/14/24 11:50 Body Mass Index (BMI) 22.3 12/14/24 11:50 Respiratory Assessment Respiratory Assessment - interior design consultant: Respiratory Tract Infection Hx - interior design consultant Hx Respiratory Tract Infection No 12/01/24 11:38 STOP Sleep Apnea STOP Sleep Apnea - interior design consultant: STOP Sleep Apnea - interior design consultant Hx Hypertension No 12/01/24 11:38 Hx Sleep Apnea No 12/01/24 11:38 CPAP BIPAP Do you snore loudly (louder No 12/01/24 11:38 than talking or can be heard Do you often feel tired/ No 12/01/24 11:38 fatigued/ sleepy during daytime? Has anyone observed you stop No 12/01/24 11:38 breathing during sleep? STOP Results Negative 12/01/24 11:38 QUESTION #5 FULL TEXT : Do you snore loudly (louder than talking or can be heard through closed doors)? Tobacco Use History Tobacco Use History - interior design consultant: Tobacco Use History - interior design consultant Tobacco Use Smoking Status Never smoker 12/01/24 11:38 Hx Tobacco Use No 12/01/24 11:38 Years Smoking Packs Smoked per Day Smoking Cessation Date was within the last 15 years Hx Smoking Cessation Date Hx Smoking Cessation Counseling Hematologic Medial History Hematologic Hx - interior design consultant: Hematologic Medical Hx - adjustment clerk Hx of Blood Transfusion No 12/01/24 11:38 Hx of Transfusion in last 3 No 12/01/24 11:38 Months Date of Last Transfusion (if within last 3 months) Ever experience any problems No 12/01/24 11:38 with transfusion(s)? Specify any problems Hx of Preganancy in last 3 No 12/01/24 11:38 Months Nurse Filling Out Transfusion DSCHRIBER 12/01/24 11:38 & Questions: Date: 12/01/24 12/01/24 11:38 Time: 11:39 12/01/24 11:38 Patient unable to answer at this time (ie. confused, unrespo /Reproduction History /Reproductive History - interior design consultant: /Reproductive Hx- interior design consultant Hx Now No 12/01/24 11:38 Gestational Age (in weeks): EDC: Hx Hx Para Hx Section SAB No 12/01/24 11:38 Active Medications Active Medications: Current Medications Generic Name Dose Route Start Last Admin Trade Name Anjelica PRN Reason Stop Dose Admin Clindamycin Phosphate 900 mg in 50 mls @ 75 mls/hr 12/14/24 13:00 Cleocin IV 12/14/24 13:39 INTRAOP ONE Lactated Ringer's 1,000 mls @ 15 mls/hr 12/14/24 11:45 12/14/24 12:00 IV 15 mls/hr .Q48H WILLIAN Administration PFSH Medical History Wears glasses Wears contact lenses Post-menopausal Alcohol use Easy bruising Restless legs Non-smoker Home Medications ?Medication ?Instructions ?Recorded ?Last Taken ?Type estradiol 0.025 mg/24 hr 1 patch transdermal MOTH 12/14/24 History semiweekly transdermal patch linaclotide 290 mcg capsule 290 mcg PO QODAY 12/01/24 12/13/24 History (Linzess) Allergy/AdvReac Type Severity Reaction Status Date / Time Penicillins Allergy Mild unknown Verified 12/14/24 11:50 Surgical History (Updated 12/01/24 @ 11:43 by Kary Leonard) Hx of colonoscopy H/O: hysterectomy Social History household members: none Smoking Status: Never smoker alcohol intake: current alcohol intake frequency: 0-2 drinks per day Review of Systems (Anesthesia) ROS Narrative System reviewed and no additional complaints, except as documented. Physical Exam Const alert, oriented x3 and average body habitus Resp normal respiratory effort, normal air movement and clear to auscultation bilaterally Cardio regular rate, regular rhythm, no murmurs and diaphoretic 12/14/24 1231 <Electronically signed by Cortes Hernandez MD> Date _ Cortes Hernandez MD Cosigner Signature: Date CC: ~ Signed [facility] Work Phone: Consult note Author Keena Sauer [facility] Note Date/Time December 14, 2024 2:23p m [facility] Medical Records Department [address] [place] [address] Anesthesia Postop Eval I 12/14/24 1330 MR#: [id number] Acct: [id number] Name: NAVYA FRANCES Rep #:[id number] : 1960 64 From: Keena Marin RNA PCP: Dr. Ajith Chung MD [place] [facility] [place]: C Location: [place] [address] Anesthesia: Postop Eval I Current Vital Signs Temperature: 97.4 F Pulse Rate: 79 Blood Pressure: 92/61 Respiratory Rate: 16 Pulse Ox: 98 Oxygen Delivery Method: Room Air Assessment Airway patent: Yes Spontaneous unlabored respirations: Yes Mental status: Awake and Calm nausea: No Vomiting: No Anesthesia Complication: No Fluid Hydration Crystalloid volume administer (ml): 600 Total IV fluid infused: 600 Progress Note Anesthesia document: Postop Eval 1 completed: Yes 12/14/241329 <Electronically signed by Keena Sauer CRNA> Date _ Keena Sauer CRNA Cosigner Signature: Date CC: ~ Signed [facility] Work Phone: Evaluation note* Diagnosis Encounter for gynecological examination (general) (routine) without abnormal findings Encounter for screening mammogram for breast cancer documented in this encounter [facility] noteNo assessment information availableWAvita [facility] System Work Phone: Evaluation note* Diagnosis Encounter for gynecological examination (general) (routine) without abnormal findings- Primary Encounter for screening mammogram for breast cancer documented in this encounter [facility] note* Diagnosis Hematuria, unspecified type- Primary Urinary frequency Dysuria [facility] Encounter for gynecological examination (general) (routine) without abnormal findings Encounter for screening mammogram for breast cancer [facility] Diagnosis Encounter for gynecological examination (general) (routine) without abnormal findings- Primary [facility] Diagnosis Breast screening- Primary Breast screening, unspecified [facility] Diagnosis Encounter for gynecological examination (general) (routine) without abnormal findings- Primary Encounter for screening [facility] for [facility] cancer [facility] Breast screening Breast screening, unspecified [facility] Author Samm Wallis [facility] Note Date/Time December 14, 2024 12:39 pm [facility] Medical Records Department [address] [place] [address] H&P Exam - Surgical 12/14/24 1232 MR#: [id number] Acct: [id number] Name: NAVYA FRANCES Rep #:[id number] : 1960 64 From: Samm Wallis MD PCP: Dr. Ajith Chung MD Status :[facility] Location: [place] [address] HPI - General HPI Narrative Navya Frances is a delightful 64-year-old female [...] have diabetes. She is not a smoker. Current Encounter (DATE OF SURGERY H&P UPDATE): I saw and examined the patient this morning in pre-operative holding. We discussed risks and benefits of today's surgery and they would like to proceed. NO CHANGE in health history since last seen and evaluated. Ready to proceed with surgery. [facility] History Wears glasses Wears contact lenses Post-menopausal Alcohol use Easy bruising Restless legs Non-smoker Home Medications ?Medication ?Instructions ?Recorded ?Last Taken ?Type estradiol 0.025 mg/24 hr 1 patch transdermal MOTH 12/14/24 History semiweekly transdermal patch linaclotide 290 mcg capsule 290 mcg PO QODAY 12/01/24 12/13/24 History (Linzess) Allergy/AdvReac Type Severity Reaction Status Date / Time Penicillins Allergy Mild unknown Verified 12/14/24 11:50 Surgical History (Updated 12/01/24 @ 11:43 by Kary Leonard) Hx of colonoscopy H/O: hysterectomy Social History household members: none Smoking Status: Never smoker alcohol intake: current alcohol intake frequency: 0-2 drinks per day Vital Signs Vital Signs Vital Signs: 12/14/24 11:50 12/14/24 11:50 12/14/24 12:29 Temperature 97.4 F L 97.4 F L Temperature Source Temporal Pulse Rate 65 65 Respiratory Rate 16 16 Respiratory Pattern Normal Blood Pressure 138/91 H 138/91 H Blood Pressure Mean 106 Blood Pressure Source Monitor Blood Pressure Position Semi-Fowlers Blood Pressure Location Right Arm Pulse Ox 100 100 Oxygen Delivery Method Room Air Room Air Weight Weight: 127 lb 13.89 oz Body Mass Index (BMI) 22.3 Physical Exam Narrative 4 X 4.5 cm mobile left anterior shoulder mass/anterior proximal arm Feels like it's in the subcutaneous tissues Assessment & Plan Assessment/Plan (1) Mass of shoulder region: PLAN: Plan I talked to the patient extensively [...] The benefits and alternatives of this surgery werealso discussed. All of their questions were answered. Plan to better characterize the lesion with ultrasound preoperatively (ordered). Photos taken and plan to submit for insurance authorization for excision and primary closure, left shoulder mass. CPT codes for insurance prior authorization are as follows: [id number], [id number] INTERVAL H&P PLAN, DATE OF SURGERY: We will proceed with surgery today. US reassuring of lipoma. Plan for excision. I marked it with her in preop holding and she was in agreement with the site marking. We discussed the above noted risks, benefits, and alternatives to today's procedure. 12/14/24 1239 <Electronically signed by Samm Wallis MD> Cosigner Signature (if applicable): CC: Dr. Ajith Chung MD; Dr. Samm Wallis MD~ Signed [facility] Work Phone: Reason for referral (narrative)* Diagnostic Procedure Only (Routine) - Pending Review Specialty Diagnoses / Procedures Referred By Maria Fernanda brown Referred To Contact [facility] Diagnoses Encounter for gynecological examination (general) (routine) without abnormal findings Encounter for screening mammogram for breast cancer Procedures SEBAS SCREENING W MAURICE SCREENING DIGITAL BREAST TOMOSYNTHESIS BI SCREENING MAMMOGRAPHY BI 2-VIEW BREAST INC Laith Sneed MD [address] [place] [address] [facility] [email or web address] [address] Referral ID Status Reason Start Date Expiration Date Visits Requested Visits Authorized [id number] Pending Review Auto-Generat ed Referral 02/07/2022 03/09/2023 1 1 [facility] for referral (narrative)* Diagnostic Procedure [...] INC Laith Sneed MD [address] [place] [address] [facility] [email or web address] [place] [address] Referral ID Status Reason Start Date Expiration Date Visits Requested Visits Authorized [id number] Pending Review Auto-Generat ed Referral 03/03/2023 04/01/2024 1 1 [facility] for referral (narrative)* Diagnostic Procedure Only (Routine) - Closed Specialty Diagnoses / Procedures Referred By Maria Fernanda brown Referred To Contact [facility] Diagnoses Encounter for gynecological examination (general) (routine) without abnormal findings Encounter for screening mammogram for breast cancer Procedures SEBAS SCREENING W MAURICE SCREENING DIGITAL BREAST TOMOSYNTHESIS BI SCREENING MAMMOGRAPHY BI 2-VIEW BREAST INC Laith Sneed MD [address] [place] [address] [facility] [address] [place] [address] Referral ID Status Reason Start Date Expiration Date V isits Requested Visits Authorized [id number] Closed Auto-Generate d Referral 03/03/2023 04/01/2024 1 1 [facility] for referral (narrative)No reason for referral information availableWAvita Health System Work Phone: Reason for visit [...] 2-VIEW BREAST INC Laith Sneed MD [address] [place] [address] [facility] [address] [place] [address] Referral ID Status Reason Start Date Expiration Date V isits Requested Visits Authorized [id number] Closed Auto-Generate d Referral 03/03/2023 04/01/2024 1 1 [facility] for visit Narrative* Diagnostic Procedure Only (Routine) - Closed Specialty Diagnoses / Procedures Referred By Maria Fernanda brown Referred To Contact [facility] Diagnoses Breast screening Procedures SEBAS SCREENING W MAURICE SCREENING DIGITAL BREAST TOMOSYNTHESIS BI SCREENING MAMMOGRAPHY BI 2-VIEW BREAST INC Laith Sneed MD [address] [place] [address] Phone: tel: fax: [facility] [address] [place] [address] Referral ID Status Reason Start Date Expiration Date V isits Requested Visits Authorized [id number] Closed Auto-Generate d Referral 03/10/2025 07/12/2025 1 1 [facility] Chief Complaint and Reason for Visit Chief [...] LT SHOULDER November 23, 2024 9:34a m Chief Complaint Admit Date Urinary tract infection August 19 7:53am Constipation October 19, 2024 8:21 am BLOATING November 11, 2024 10:35a m SYNOVIAL CYST/ LIPOMA November 11, 2024 1:00 pm MASS LT SHOULDER November 23, 2024 9:34a m Excision left shoulder mass December 14 11:30am Excision left shoulder mass December 14 12:32pm Reason for Visit Admit Date Increased urinary frequency August 7:53am Constipation October 19, 2024 8:21 am Mass of shoulder region November 11, 2024 1: 00pm Mass of shoulder region December 14, 2024 1 1:30am Chief Complaint Admit Date Urinary tract infection August 19 7:53am Constipation October 19, 2024 8:21 am BLOATING November 11, 2024 10:35a m SYNOVIAL CYST/ LIPOMA November 11, 2024 1:00 pm MASS LT SHOULDER November 23, 2024 9:34a m Excision left shoulder mass December 14 11:30am Excision left shoulder mass December 14 12:32pm POST OP December 15, 2024 10:39 am Chief Complaint Admit Date Constipation October 19, 2024 8:21 am BLOATING November 11, 2024 10:35a m SYNOVIAL CYST/ LIPOMA November 11, 2024 1:00 pm MASS LT SHOULDER November 23, 2024 9:34a m Excision left shoulder mass December 14 11:30am Excision left shoulder mass December 14 12:32pm POST OP December 15, 2024 10:39 am POST OP December 23, 2024 8:13 am Reason for Visit Admit Date Constipation October 19, 2024 8:21 am Mass of shoulder region November 11, 2024 1: 00pm Mass of shoulder region December 14, 2024 1 1:30am Mass of shoulder region December 15, 2024 1 0:39am Chief Complaint Admit Date Constipation October 19, 2024 8:21 am BLOATING November 11, 2024 10:35a m SYNOVIAL CYST/ LIPOMA November 11, 2024 1:00 pm MASS LT SHOULDER November 23, 2024 9:34a m Excision left shoulder mass December 14 11:30am Excision left shoulder mass December 14 12:32pm POST OP December 15, 2024 10:39 am POST OP December 23, 2024 8:13 am 3 M FU January 18, 2025 7:53a m Reason for Visit Admit Date Constipation October 19, 2024 8:21 am Mass of shoulder region November 11, 2024 1: 00pm Mass of shoulder region December 14, 2024 1 1:30am Mass of shoulder region December 15, 2024 1 0:39am Mass of shoulder region December 23, 2024 8:13am Reason for Visit Admit Date Constipation October 19, 2024 8:21 am Mass of shoulder region November 11, 2024 1: 00pm Mass of shoulder region December 14, 2024 1 1:30am Mass of shoulder region December 15, 2024 1 0:39am Mass of shoulder region December 23, 2024 8:13am Constipation January 18, 2025 7:53a m Chief Complaint Admit Date Constipation October 19, 2024 8:21 am BLOATING November 11, 2024 10:35a m SYNOVIAL CYST/ LIPOMA November 11, 2024 1:00 pm MASS LT SHOULDER November 23, 2024 9:34a m Excision left shoulder mass December 14 11:30am Excision left shoulder mass December 14 12:32pm POST OP December 15, 2024 10:39 am POST OP December 23, 2024 8:13 am 3 M FU January 18, 2025 7:53a m SCREENING February 01, 2025 2:46 pm Advance Directives No Advanced Directives Records Found Advance Directive Response Recorded Date/ Time Do you have a Healthcare Power of Shrimp Peeling Machine Tender? Yes December 01, 2024 11:38am Summary Purpose Family History No Family History Records FoundNo Family History Records Found Additional Source Comments Source Comments (unrecognize d section and content) In the event this informatio n is protected by the Federal Confidentiality of Alcohol and Drug Abuse Patient Records regulations: The Federal rules restrict any use of the information to criminally investigate or prosecute any alcohol or drug abuse patient.[facility] the event this information is protected by the Federal Confidentiality of Alcohol and Drug Abuse Patient Records regulations: The Federal rules restrict any use of the information to criminally investigate or prosecute any alcohol or drug abuse patient.[facility] Center[facility] the event this information is protected by the Federal Confidentiality of Alcohol and Drug Abuse Patient Records regulations: The Federal rules restrict any use of the information to criminally investigate or prosecute any alcohol or drug abuse patient.[facility] the event this information is protected by the Federal Confidentiality of Alcohol and Drug Abuse Patient Records regulations: The Federal rules restrict any use of the information to criminally investigate or prosecute any alcohol or drug abuse patient.[facility] Center[facility] the event this information is protected by the Federal Confidentiality of Alcohol and Drug Abuse Patient Records regulations: The Federal rules restrict any use of the information to criminally investigate or prosecute any alcohol or drug abuse patient.[facility] Center[facility] the event this information is protected by the Federal Confidentiality of Alcohol and Drug Abuse Patient Records regulations: The Federal rules restrict any use of the information to criminally investigate or prosecute any alcohol or drug abuse patient.[facility] Center[facility] the event this information is protected by the Federal Confidentiality of Alcohol and Drug Abuse Patient Records regulations: The Federal rules restrict any use of the information to criminally investigate or prosecute any alcohol or drug abuse patient.[facility] Center[facility] the event this information is protected by the Federal Confidentiality of Alcohol and Drug Abuse Patient Records regulations: The Federal rules restrict any use of the information to criminally investigate or prosecute any alcohol or drug abuse patient.[facility] Center[facility] the event this information is protected by the Federal Confidentiality of Alcohol and Drug Abuse Patient Records regulations: The Federal rules restrict any use of the information to criminally investigate or prosecute any alcohol or drug abuse patient.[facility] Center[facility] the event this information is protected by the Federal Confidentiality of Alcohol and Drug Abuse Patient Records regulations: The Federal rules restrict any use of the information to criminally investigate or prosecute any alcohol or drug abuse patient.[facility] Center[facility] the event this information is protected by the Federal Confidentiality of Alcohol and Drug Abuse Patient Records regulations: The Federal rules restrict any use of the information to criminally investigate or prosecute any alcohol or drug abuse patient.[facility] Center[facility] the event this information is protected by the Federal Confidentiality of Alcohol and Drug Abuse Patient Records regulations: The Federal rules restrict any use of the information to criminally investigate or prosecute any alcohol or drug abuse patient.[facility] Reason for Visit (unrecogniz ed section and content) Reason Comments Refill Request Reason Comments Yearly Exam Reason Comments UTI Reason Comments Yearly Exam Reason Onset Date Comments Refill Request 02/08/2025 Reason Comments Mammogram Care Teams (unrecognized sec tion and content) Case Packer Relationship Specialty Start Date End Date Ajith Chung MD [address] [place], [place] [id number] PCP - General Family Practice 09/27/14 Case Packer Relationship Specialty Start Date End Date Ajith Chung MD [address] [place], [place] [id number] PCP - General Family Practice 09/27/14 Case Packer Relationship Specialty Start Date End Date Ajith Chung MD [address] [facility] [place] [address] PCP - General Family Practice 09/27/14 Case Packer Relationship Specialty Start Date End Date Ajith Chung MD [address] [place], [place] [address]K[address] [place], [place] [id number] PCP - General Family Medicine 09/27/14 Case Packer Relationship Specialty Start Date End Date Ajith Chung MD [address] [place], [place] [address] [place], [place] [id number] PCP - General Family Medicine 09/27/14 Team Status: Active Member Role Status Dates Dr. Talat Chung MD Family Provider Active Dr. Talat Chung MD Primary Care Provider Activ e Team Status: Inactive Member Role Status Dates Dr. Talat Chung MD Primary Care Provider Activ e Blanca Torres COSTUMING SUPERVISOR, COSTUMING SUPERVISOR-C Attending Provider Active Team Status: Inactive Member Role Status Dates Dr. Talat Chung MD Primary Care Provider Activ e Kirk Pires MD Attending Provider Active Case Packer Relationship Specialty Start Date End Date Ajith Chung MD [address] [place], [place] [id number] PCP - General [facility] Medicine 09/27/14 Team Status: Inactive Member Role Status Dates Dr. Talat Chung MD Primary Care Provider, Attending Provider, Referring Provider Active Case Packer Relationship Specialty Start Date End Date Ajith Chung MD [address] [place] [address] PCP - General Family Medicine 09/27/14 Team Status: Active Member Role Status Dates Dr. Ajith Chung MD Primary Care Provider Acti ve Team Status: Inactive Member Role Status Dates Dr. Ajith Chung MD Primary Care Provider Acti ve Start: August 19, 2024 End: August 19, 2024 Dr. Ajith Chung MD Referring Provider Active Start: August 19, 2024 End: August 19, 2024 NATALIE Quinn Attending Provider Active Sta rt: August 19, [...] November 23, 2024 End: November 23, 2024 Team Status: Inactive Member Role Status Dates Dr. Ajith Chung MD Primary Care Provider Acti ve Start: November 11, 2024 End: November 11, 2024 Dr. Samm Wallis MD Attending Provider Active Start: November 11, 2024 End: November 11, 2024 Dr. Amado Boogie MD Referring Provider Active S tart: November 11, 2024 End: November 11, 2024 Team Status: Inactive Member Role Status Dates Dr. Ajith Chung MD Primary Care Provider Acti ve Start: December 14, 2024 End: December 14, 2024 Dr. Samm Wallis MD Attending Provider Active Start: December 14, 2024 End: December 14, 2024 Dr. Samm Wallis MD Referring Provider Active Start: December 14, 2024 End: December 14, 2024 Team Status: Active Member Role Status Dates Dr. Ajith Chung MD Primary Care Provider Acti ve Start: December 14, 2024 Dr. Samm Wallis MD Attending Provider Active Start: December 14, 2024 Dr. Samm Wallis MD Referring Provider Active Start: December 14, 2024 Dr. Samm Wallis MD Other Provider Active Star t: December 14, 2024 Team Status: Inactive Member Role Status Dates Dr. Ajith Chung MD Primary Care Provider Acti ve Start: December 15, 2024 End: December 15, 2024 Dr. Ajith Chung MD Referring Provider Active Start: December 15, 2024 End: December 15, 2024 Dr. Samm Wallis MD Attending Provider Active Start: December 15, 2024 End: December 15, 2024 Team Status: Inactive Member Role Status Dates Dr. Ajith Chung MD Primary Care Provider Acti ve Start: December 23, 2024 End: December 23, 2024 Dr. Ajith Chung MD Referring Provider Active Start: December 23, 2024 End: December 23, 2024 Dr. Samm Wallis MD Attending Provider Active Start: December 23, 2024 End: December 23, 2024 Team Status: Active Member Role/Relationship Status Dates Dr. Ajith Chung MD Primary Care Provider Acti ve Team Status: Inactive Member Role/Relationship Status Dates Dr. Ajith Chung MD Primary Care Provider Acti ve Start: October 19, 2024 End: October 19, 2024 Dr. Ajith Chung MD Referring Provider Active Start: October 19, 2024 End: October 19, 2024 Dr. Omar Shi DO Attending Provider Active Start: October 19, 2024 End: October 19, 2024 Team Status: Inactive Member Role/Relationship Status Dates Dr. Ajith Chung MD Primary Care Provider Acti ve Start: November 11, 2024 End: November 11, 2024 Dr. Omar Shi DO Attending Provider Active Start: November 11, 2024 End: November 11, 2024 Dr. Omar Shi DO Referring Provider Active Start: November 11, 2024 End: November 11, 2024 Team Status: Inactive Member Role/Relationship Status Dates Dr. Ajith Chung MD Primary Care Provider Acti ve Start: November 11, 2024 End: November 11, 2024 Dr. Samm Wallis MD Attending Provider Active Start: November 11, 2024 End: November 11, 2024 Dr. Amado Boogie MD Referring Provider Active S tart: November 11, 2024 End: November 11, 2024 Team Status: Inactive Member Role/Relationship Status Dates Dr. Ajith Chung MD Primary Care Provider Acti ve Start: November 23, 2024 End: November 23, 2024 Dr. Samm Wallis MD Attending Provider Active Start: November 23, 2024 End: November 23, 2024 Dr. Samm Wallis MD Referring Provider Active Start: November 23, 2024 End: November 23, 2024 Team Status: Inactive Member Role/Relationship Status Dates Dr. Ajith Chung MD Primary Care Provider Acti ve Start: December 14, 2024 End: December 14, 2024 Dr. Samm Wallis MD Attending Provider Active Start: December 14, 2024 End: December 14, 2024 Dr. Samm Wallis MD Referring Provider Active Start: December 14, 2024 End: December 14, 2024 Team Status: Active Member Role/Relationship Status Dates Dr. Ajith Chung MD Primary Care Provider Acti ve Start: December 14, 2024 Dr. Samm Wallis MD Attending Provider Active Start: December 14, 2024 Dr. Samm Wallis MD Referring Provider Active Start: December 14, 2024 Dr. Samm Wallis MD Other Provider Active Star t: December 14, 2024 Team Status: Inactive Member Role/Relationship Status Dates Dr. Ajith Chung MD Primary Care Provider Acti ve Start: December 15, 2024 End: December 15, 2024 Dr. Ajith Chung MD Referring Provider Active Start: December 15, 2024 End: December 15, 2024 Dr. Samm Wallis MD Attending Provider Active Start: December 15, 2024 End: December 15, 2024 Team Status: Inactive Member Role/Relationship Status Dates Dr. Ajith Chung MD Primary Care Provider Acti ve Start: December 23, 2024 End: December 23, 2024 Dr. Ajith Chung MD Referring Provider Active Start: December 23, 2024 End: December 23, 2024 Dr. Samm Wallis MD Attending Provider Active Start: December 23, 2024 End: December 23, 2024 Team Status: Inactive Member Role/Relationship Status Dates Dr. Ajith Chung MD Primary Care Provider Acti ve Start: January 18, 2025 End: January 18, 2025 Dr. Ajith Chung MD Referring Provider Active Start: January 18, 2025 End: January 18, 2025 Dr. Omar Shi DO Attending Provider Active Start: January 18, 2025 End: January 18, 2025 Team Status: Inactive Member Role/Relationship Status Dates Dr. Ajith Chung MD Primary Care Provider Acti ve Start: January 26, 2025 End: January 26, 2025 Dr. Ajith Chung MD Attending Provider Active Start: January 26, 2025 End: January 26, 2025 Dr. Ajith Chung MD Referring Provider Active Start: January 26, 2025 End: January 26, 2025 Team Status: Inactive Member Role/Relationship Status Dates Dr. Ajith Chung MD Primary Care Provider Acti ve Start: February 01, 2025 End: February 01, 2025 Dr. Ajith Chung MD Attending Provider Active Start: February 01, 2025 End: February 01, 2025 Dr. Ajith Chung MD Referring Provider Active Start: February 01, 2025 End: February 01, 2025 Case Packer Relationship Specialty Start Date End Date Ajith Chung MD [address] [place] [address] PCP - General Family Medicine 09/27/14 Case Packer Relationship Specialty Start Date End Date Ajith Chung MD [address] [facility] [place], [place] [address] PCP - General Family Medicine 09/27/14 Case Packer Relationship Specialty Start Date End Date Ajith Chung MD [address] [facility] [address] [place], [place] [id number] PCP - General Family Medicine 09/27/14 Case Packer Relationship Specialty Start Date End Date Ajith Chung MD [address] [facility] [place] [address] PCP - General Family Medicine 3/18/15 Goals (unrecognized section and content) Goals may be documented in a n alternate sectionGoals may be documented in an alternate sectionGoals may be documented in an alternate sectionGoals may be documented in an alternate sectionGoals may be documented in an alternate section INFORMATION SOURCE (unrecogn ized section and content) DATE CREATED AUTHOR 03/13/2025 [facility] DATE CREATED AUTHOR AUTHOR'Jayashree FINNEY 05/13/2025 [facility] FOR RECORDS PERTAINING TO PATIENTS WHO ARE [...] BE BASED ON THE PRIMARY CLINICAL RECORDS. [employer] [facility]. provides no warranty or guarantee of the accuracy or completeness of information in this document.
--- NOTE | 2025-05-29 06:38 | HP.PCM_ITS ---
HPI - General General Date of Admission: 05/29/25 Date of Service: 05/29/25 Chief Complaint: constipation HPI Narrative DERIC FRANCES, is a 65 F who presents [DERIC FRANCES, is a 64 F who presents to the office today for follow up. *[facility] established 05.11.24 Pt has had constipation for years now but has progressively become worse. She was taking 4 sennas daily for over 10 years. About 9 months ago she stopped taking the senna and started using suppositories to have a bowel movement. She uses one every day and without it she is unsure if she would ever have a bowel movement. She feels like it my be related to the muscles down there. She has some abdominal discomfort and bloating but no pain. Her last colonoscopy was [address] Tsai with no pertinent abnormalities. She denies abdominal pain, n/v, heartburn, diarrhea or blood in her stool. SITZ Day 3: 11 sitz markers Day 5: 3 sitz markers OV 4.9.25 pt reports she is taking Linzess 290mcg every morning and continues to have alternating bowel movements. Pt reports that some days she will have diarrhea 4-5 times and other days will not have a bowel movement all day. Pt reports that she will have diarrhea even if she has not eaten; denies nocturnal diarrhea and fecal incontinence. Pt reports that her last colonoscopy was in 2011 and was told to repeat in 10 years. GET 5.5.25 abnormal OV 7.9.25 pt reports continued constipation, stopped taking Linzess about a month ago, stated it was no longer helping. Pt reports that she is using suppositories. pt reports she has tried amitiza, but that this upset her stomach. ] [facility] Medical History Wears glasses Wears contact lenses Post-menopausal Alcohol use Easy bruising Restless legs Non-smoker Home Medications ?Medication ?Instructions ?Recorded ?Last Taken ?Type estradiol 0.025 mg/24 hr 1 patch transdermal MOTH 12/14/24 History semiweekly transdermal patch linaclotide 290 mcg capsule 290 mcg PO QDAY #90 caps 0 01/24/25 Unknown Rx (Linzess) multivitamin (Daily Multi-Vitamin 1 tab PO DAILY 05/25 Unknown History tablet) Allergy/AdvReac Type Severity Reaction Status Date / Time Penicillins Allergy Mild unknown Verified 05/25/25 09:25 Surgical History History of excision of lesion Hx of colonoscopy H/O: hysterectomy Social History household members: none Smoking Status: Never smoker alcohol intake: current alcohol intake frequency: 0-2 drinks per day ROS Constitutional Constitutional: Denies fatigue, fever(s), poor appetite, weight gain or weight loss Gastrointestinal Gastrointestinal: Denies belching, bloating, change in bowel habits, change in stool character, chewing difficulty, coffee ground emesis, constipation, cramping, diarrhea, dyspepsia, dysphagia, early satiety, excessive flatus, fecal incontinence, heartburn, hematemesis, hematochezia, hemorrhoids, loose stools, melena, nausea, odynophagia, rectal bleeding, tenesmus, vomiting or weight changes Physical Exam Const alert, oriented x3, no apparent distress and healthy appearing General Appearance: cooperative GI normal to inspection, nondistended, normoactive bowel sounds, soft to palpation, non-tender and non-distended Percussion: normal to percussion Rectal Exam: deferred Assessment & Plan Assessment/Plan (1) Constipation: PLAN: Assessment and Plan Assessment and Plan (1) Constipation: Status: Acute Plan: This is a healthy 63 yo with extensive hx of constipation. SHe has had constipation for as long as she can remember. She has taken senna daily for years but now only uses suppositories. She stated that without a suppository she does not believe she would be able to go. She underwent a 3 day kub and 5 day kub. It displayed slow transit constipation and pelvic floor dysfunction. She does admit to some bloating. She was started on 72mcg/day of Linzess and it has been titrated up to 240mcg/day. She also drinks two cups of coffee/ day. She does feel it works , but it is unpredictable. I suspect that she might have other motility issues. We will have her increase her Linzess to 290 mcg twice a day. We will also add mineral oil at night and have her continue to drink the amount of water that she is drinking on a daily basis . Medications: Changed From linaclotide (Linzess) 290 mcg PO QODAY To linaclotide (Linzess) 290 mcg PO BID 60 caps 2RF
--- NOTE | 2025-05-29 06:56 | PRE.ANES_ITS ---
ASA Classification* ASA Classification ASA Classification: 2 Assessment & Plan Anesthesia* Anesthesia Assessment Anesthesia Assessment: Discussed sedation and/or anesthesia options, risks, benefits, and alternatives with patient/parents/legal guardian/POA. Questions invited. The patient/parents/legal guardian/POA seems to understand and agrees to proceed with anesthesia plan. Reviewed the physical assessment, medical history, allergy history and patient home medications list prior to surgery/procedure/anesthetic and documented any changes. Performed airway and anesthesia risk assessments. Anesthesia Type Anesthesia Type: MAC History Source History Obtained from:: Patient and Chart Anesthesia Focused Assessment* Blood Pressure: 134/82 Oxygen Delivery Method: Room Air Airway Assessment Mouth opens: >3 cm Mallampati Score: III Teeth Condition: Intact Neck Range of motion (ROM): Limited ROM (Slight Decrease) Labs Anesthesia Preop lab: CBC WBC, (4.4-11.0) 5.2 K/mm3 01/08/23, 09:15 RBC, (4.2-5.4) 4.63 M/mm3 01/08/23, 09:15 Hgb, (12.0-15.0) 14.4 g/dL 01/08/23, 09:15 Hct, (37-47) 44.1 % 01/08/23, 09:15 Plt Count, (150-450) 281 K/mm3 01/08/23, 09:15 CHEMISTRY Potassium, (3.3-5.1) 4.3 mmol/L 01/26/25, 11:27 Sodium, (133-145) 141 mmol/L 01/26/25, 11:27 BUN, (4-19) 17 mg/dL 01/26/25, : Creatinine, (0.70-1.20) 0.75 mg/dL 01/26/25, 11: Glucose, (70-99) 87 mg/dL 01/26/25, 11:27 TSH, (0.300-4.200) 1.400 uIU/mL 01/26/25, :27 COAG Pre-Assessment Diagnosis/Proposed Procedure Planned Operative Procedure(s): CSCOPE Anesthesia History Anesthesia History - cash applications associate: Anesthesia History - cash applications associate Hx Hospitalization No 05/25/25 09:26 Any Problems With Anesthesia No 05/25/25 09:26 Cholinesterase deficiency No 05/25/25 09:26 You/Your Family Experience No 05/25/25 09:26 fever (hyperthermia) with Relationship Recent Exposure to Contagious No 12/14/24 11:50 Disease Does patient have nerve No 05/25/25 09:26 stimulator Patient instructed to have device shut off --Does patient have Pacemaker or ICD? When Was Last Pacemaker Check QUESTION #4 FULL TEXT: You/Your Family Experience fever (hyperthermia) with Anesthesia Last Oral Intake Last Oral intake: Last Oral Intake NPO since 330 Meds taken in AM with sips of water? Meds patient instructed to take am of surgery Any additional information?: Yes NPO since: 03:30 (Patient finished prep at 3:30 AM.) Meds taken in AM with sips of water?: No PONV PONV - cash applications associate: PONV - cash applications associate Female Yes 05/25/25 09:26 HX of Motion Sickness No 05/25/25 09:26 HX of N/V After Surgery No 05/25/25 09:26 Non-Smoker Yes 05/25/25 09:26 Duration of Surgery greater No 05/25/25 09:26 than 60 minutes Number of Risk Factors 2 05/25/25 09:26 PONV Score Moderate Risk 05/25/25 09:26 Height & Weight Height & Weight: Anesthesia: Height & Weight Height 5 ft 3.5 in 12/14/24 11:50 Respiratory Assessment Respiratory Assessment - cash applications associate: Respiratory Tract Infection Hx - cash applications associate Hx Respiratory Tract Infection No 05/25/25 09:26 STOP Sleep Apnea STOP Sleep Apnea - cash applications associate: STOP Sleep Apnea - cash applications associate Hx Hypertension No 05/25/25 09:26 Hx Sleep Apnea No 05/25/25 09:26 CPAP BIPAP Do you snore loudly (louder No 05/25/25 09:26 than talking or can be heard Do you often feel tired/ No 05/25/25 09:26 fatigued/ sleepy during daytime? Has anyone observed you stop No 05/25/25 09:26 breathing during sleep? STOP Results Negative 05/25/25 09:26 QUESTION #5 FULL TEXT : Do you snore loudly (louder than talking or can be heard through closed doors)? 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 Specify any problems Hx of Preganancy in last 3 No 05/25/25 09:26 Months Nurse Filling Out Transfusion DSCHRIBER 05/25/25 09:26 & Questions: Date: 05/25/25 05/25/25 09:26 Time: :05/25/25 09:26 Patient unable to answer at this time (ie. confused, unrespo /Reproduction History /Reproductive History - cash applications associate: /Reproductive Hx- cash applications associate Hx Now No 05/25/25 09:26 Gestational Age (in weeks): EDC: Hx Hx Para Hx Section SAB No 05/25/25 09:26 Does the father of the baby or his family experience fever w Father of the baby Malignant Hypertension history comment Active Medications Active Medications: Current Medications Generic Name Dose Route Start Last Admin Trade Name Freq PRN Reason Stop Dose Admin Lactated Ringer's 1,000 mls @ 15 mls/hr 05/29/25 06:15 IV .Q48H WILLIAN PFSH Medical History Wears glasses Wears contact lenses Post-menopausal Alcohol use Easy bruising Restless legs Non-smoker Home Medications ?Medication ?Instructions ?Recorded ?Last Taken ?Type estradiol 0.025 mg/24 hr 1 patch transdermal MOTH 12/14/24 History semiweekly transdermal patch linaclotide 290 mcg capsule 290 mcg PO QDAY #90 caps 0 01/24/25 Unknown Rx (Linzess) multivitamin (Daily Multi-Vitamin 1 tab PO DAILY 05/25 Unknown History tablet) Allergy/AdvReac Type Severity Reaction Status Date / Time Penicillins Allergy Mild unknown Verified 05/25/25 09:25 Surgical History History of excision of lesion Hx of colonoscopy H/O: hysterectomy Social History household members: none Smoking Status: Never smoker alcohol intake: current alcohol intake frequency: 0-2 drinks per day Review of Systems (Anesthesia) ROS Narrative System reviewed and no additional complaints, except as documented.
--- NOTE | 2025-05-29 07:49 | OP.COLON_ITS ---
Patient Name: Navya Zambrano Procedure Date: 05/29/2025 7:16 AM Date of : 1960 Age: 65 Procedure: Colonoscopy Indications: Screening for colorectal malignant neoplasm Providers: Omar Shi DO Referring MD: Talat Chung Medicines: Monitored Anesthesia Care Patient Profile: This is a 65 year old female. Refer to note in patient chart for documentation of history and physical. Last Colonoscopy: several years ago. Complications: No immediate complications. Procedure: Pre-Anesthesia Assessment: - Prior to the procedure, a History and Physical was performed, and patient medications and allergies were reviewed. The patient is competent. The risks and benefits of the procedure and the sedation options and risks were discussed with the patient. All questions were answered and informed consent was obtained. Patient identification and proposed procedure were verified by the physician in the pre-procedure area. Mental Status Examination: alert and oriented. Airway Examination: normal oropharyngeal airway and neck mobility. Respiratory Examination: clear to auscultation. CV Examination: normal. Prophylactic Antibiotics: The patient does not require prophylactic antibiotics. Prior Anticoagulants: The patient has taken no anticoagulant or antiplatelet agents except for NSAID medication. ASA Grade Assessment: II - A patient with mild systemic disease. After reviewing the risks and benefits, the patient was deemed in satisfactory condition to undergo the procedure. The anesthesia plan was to use monitored anesthesia care (MAC). Immediately prior to administration of medications, the patient was re-assessed for adequacy to receive sedatives. The heart rate, respiratory rate, oxygen saturations, blood pressure, adequacy of pulmonary ventilation, and response to care were monitored throughout the procedure. The physical status of the patient was re-assessed after the procedure. After I obtained informed consent, the scope was passed under direct vision. Throughout the procedure, the patient's blood pressure, pulse, and oxygen saturations were monitored continuously. The colonoscope was introduced through the anus and advanced to the cecum, identified by appendiceal orifice and ileocecal valve. The colonoscopy was performed without difficulty. The patient tolerated the procedure well. The quality of the bowel preparation was adequate. The ileocecal valve, appendiceal orifice, and rectum were photographed. Scope In: 7:31:35 AM Scope Withdrawal Time 0 hours 8 minutes 9 seconds Scope Out: 7:45:08 AM Total Procedure Duration Time 0 hours 13 minutes 33 seconds Findings: The perianal and digital rectal examinations were normal. Multiple small and large-mouthed diverticula were found in the recto-sigmoid colon and sigmoid colon. Non-bleeding internal hemorrhoids were found during retroflexion. The hemorrhoids were Grade I (internal hemorrhoids that do not prolapse). The exam was otherwise without abnormality on direct and retroflexion views. Impression: - Diverticulosis in the recto-sigmoid colon and in the sigmoid colon. - Non-bleeding internal hemorrhoids. - The examination was otherwise normal on direct and retroflexion views. - No specimens collected. Recommendation: - Discharge patient to home. - Resume previous diet. - Repeat colonoscopy in 10 years for screening purposes. - Continue present medications. Procedure Code(s): --- Professional --- G0121, Colorectal cancer screening; colonoscopy on individual not meeting criteria for high risk CPT copyright 2021 [employer]. All rights reserved. The codes documented in this report are preliminary and upon sliver lapper review may be revised to meet current compliance requirements. Omar Shi DO 05/29/2025 7:48:13 AM This report has been signed electronically. Number of Addenda: 0 Note Initiated On: 05/29/2025 7:16 AM
--- NOTE | 2025-05-29 07:49 | OP.PROVAT_ITS ---
05/29/2025 Talat Chung [address] [place] [address] Re : Colonoscopy procedure for Navya Zambrano Dear Dr. Chung This procedure was performed on Thursday, May 29, 2025. My impressions and recommendations are as follows: Impressions : - Diverticulosis in the recto-sigmoid colon and in the sigmoid colon. - Non-bleeding internal hemorrhoids. - The examination was otherwise normal on direct and retroflexion views. - No specimens collected. Recommendations : - Discharge patient to home. - Resume previous diet. - Repeat colonoscopy in 10 years for screening purposes. - Continue present medications. My findings are described in the full procedure note, which is enclosed. If I can be of further assistance, please feel free to contact me at . Sincerely, Omar Shi, 05/29/2025 7:48:13 AM This report has been signed electronically.
--- NOTE | 2025-05-29 07:55 | PCM.POST.ANE ---
Anesthesia: Postop Eval I Current Vital Signs Temperature: 97.1 F Pulse Rate: 64 Blood Pressure: 93/52 Respiratory Rate: 16 Pulse Ox: 100 Oxygen Delivery Method: Room Air Assessment Airway patent: Yes Spontaneous unlabored respirations: Yes Mental status: Asleep nausea: No Vomiting: No Anesthesia Complication: No Fluid Hydration Crystalloid volume administer (ml): 800 Total IV fluid infused: 800 Progress Note Anesthesia document: Postop Eval 1 completed: Yes
--- NOTE | 2025-05-29 13:57 | PCM.POSTANE2 ---
Anesthesia Postop Eval I Sum Postop Eval Completion status Anesthesia document: Postop Eval 1 completed: Yes Anesthesia Postop Eval I Summary Anesthesia Postop Eval I Summary: Anesthesia Postop Eval I: Assessment Summary Airway patent Yes 05/29/25 07:56 [email or web address] Spontaneous unlabored Yes 05/29/25 07:56 [email or web address] respirations Mental status Asleep 05/29/25 07:56 [email or web address] nausea No 05/29/25 07:56 [email or web address] Vomiting No 05/29/25 07:56 [email or web address] Anesthesia Postop Eval I: Fluid Summary Crystalloid volume administer 800 05/29/25 07:56 [email or web address] (ml) Colloids volume administered ( ml) Blood Product volume administered (ml) Total IV fluid infused 800 05/29/25 07:56 [email or web address] Anesthesia Postop Eval I: Summary Notes Anesthesia Complication No 05/29/25 07:56 [email or web address] Anesthesia Complication Comment: Post-operative progress note Anesthesia: Postop Eval II Evaluation Mental status: Awake Pain Level: 0 nausea: No Vomiting: No Complications Anesthesia Complication: No
== END 2025-05-29 08:21 | disposition home or self-care (01) ==
LOC: EN 06:00 → AC 06:01
PROVIDERS: PCP Family Medicine; Referring Provider Family Medicine; Visit Provider Internal Medicine Gastroenterology
PROC: 0DJD8ZZ Inspection of Lower Intestinal Tract, Via Natural or Artificial Opening Endoscopic (ICD-10-PCS; CPT 45378; principal; 2025-05-29 06:55)
DX: Z12.11 Encounter for screening for malignant neoplasm of colon (principal); K57.30 Diverticulosis of large intestine without perforation or abscess without bleeding; K64.0 First degree hemorrhoids; Z90.710 Acquired absence of both cervix and uterus
CPT/HCPCS: 45378; J2405